=== PATIENT | male | born 1960 | race Caucasian/White ===

== ENCOUNTER → 2017-01-25 | Outpatient (CLI) | payer OTHER ==
--- NOTE | 2017-01-25 13:17 | DIAGNOSTIC IMAGING REPORT ---
BONE SCAN WHOLE BODY CLINICAL HISTORY: C61 Prostate cancer COMPARISON STUDY: Outside CT scan dated 11/13/2016 FINDINGS: The patient was injected with 26.4 mCi of technetium 99m MDP. Three-hour delayed whole body images were acquired. The skeletal uptake appears symmetric and normal. There are no foci of increased activity viewed as suspicious for skeletal metastasis. IMPRESSION: Normal whole-body bone scan Electronically signed by: Timothy Albarran M.D. 01/25/2017 1:16 PM Dictated Date/Time: 01/25/2017 1:15 PM
== END | disposition home or self-care (01) ==
LOC: C.NUCL 09:27
PROVIDERS: ATTEND Urology
DX: C61 Malignant neoplasm of prostate (principal)

== ENCOUNTER 2017-02-23 08:26 | Inpatient (IN) | payer OTHER ==
[2017-02-10 12:40] VITALS: BMI 16.0
--- NOTE | 2017-02-10 13:01 | PAT Medication Instructions ---
Service Date Feb 10, 2017. Current Home Medication List Albuterol Sulfate (Proair Respiclick), 1 PUFF INH QID PRN for Shortness of Breath Fluticasone Prop/Salmeterol (Advair Diskus 250/50 60 Dose), 1 PUFF INH BID Tiotropium [place] (Spiriva Handihaler), 1 CAP INH QAM Medication Instructions For Your Scheduled Surgery - Take the following medications the morning of surgery with a sip of water: Albuterol Sulfate (Proair Respiclick), 1 PUFF INH QID PRN for Shortness of Breath (if needed) Fluticasone Prop/Salmeterol (Advair Diskus 250/50 60 Dose), 1 PUFF INH BID Tiotropium [place] (Spiriva Handihaler), 1 CAP INH QAM - Take the following medications as scheduled the night before surgery: Albuterol Sulfate (Proair Respiclick), 1 PUFF INH QID PRN for Shortness of Breath (if needed) Fluticasone Prop/Salmeterol (Advair Diskus 250/50 60 Dose), 1 PUFF INH BID Tiotropium [place] (Spiriva Handihaler), 1 CAP INH QAM If you have any questions please call us at [phone] or [phone] or [phone]
[2017-02-10 14:09] LABS: BASO % 0.6 %; BASO ABS # 0.04 K/uL (0-0.2); EOS % 1.9 %; EOS ABS # 0.12 K/uL (0-0.5); HEMATOCRIT 42.4 % (42-52); HEMOGLOBIN 15.1 g/dL (14.0-18.0); IG# 0.01 K/uL (0.00-0.02); LYMPH % 12.3 %; LYMPH ABS # 0.78 K/uL (1.2-3.4); MEAN CELL VOLUME 94.2 fL (80-100); MEAN CORPUSCULAR HEMOGLOBIN 33.6 pg (25-34); MEAN CORPUSCULAR HGB CONC 35.6 g/dl (32-36); MEAN PLATELET VOLUME 9.6 fL (7.4-10.4); MONO % 8.1 %; MONO ABS # 0.51 K/uL (0.11-0.59); NEUT % 76.9 %; NEUT ABS # 4.86 K/uL (1.4-6.5); PLATELET COUNT 237 K/uL (130-400); RED CELL DISTRIBUTION WIDTH CV 12.8 % (11.5-14.5); RED CELL DISTRIBUTION WIDTH SD 44.3 fL (36.4-46.3); WHITE BLOOD COUNT 6.32 K/uL (4.8-10.8)
--- NOTE | 2017-02-10 14:15 | DIAGNOSTIC IMAGING REPORT ---
CHEST 2 VIEWS ROUTINE CLINICAL HISTORY: PAT preoperative evaluation COMPARISON STUDY: No previous studies for comparison. FINDINGS: Emphysematous change throughout both hemithoraces. Chronic scarring of the diaphragms bilaterally. No focal infiltrate. No acute process. IMPRESSION: Emphysematous change. No acute process. The above report was generated using voice recognition software. It may contain grammatical, syntax or spelling errors. Electronically signed by: Milton Domingo M.D. 02/10/2017 2:14 PM Dictated Date/Time: 02/10/2017 2:13 PM
[2017-02-10 14:18] LABS: CALCIUM 9.3 mg/dl (8.5-10.1); CREATININE 0.96 mg/dl (0.60-1.40); POTASSIUM 4.3 mmol/L (3.5-5.1)
[~2017-02-23] VITALS: Ht 170.2 cm; Wt 48.4 kg
[2017-02-23] VITALS (7 sets, daily range): BP systolic 107–161; BP diastolic 68–95; PULSE 58–76; TEMP 36.4–37; O2SAT 93–98; Ht 170.2 cm; Wt 48.4 kg
[~2017-02-23 08:26] MED LIST: ADVIN25/60 INH; ALBU18002 INH; CEFAZOLIN 1000MG IV PUSH 5 ML IV SCH; HEPARIN SOD 5000 UNIT/0.5 ML CARP SQ SCH; LACTATED RINGER'S 1000ML 1,000 ML IV SCH; SPRIN/30 INH
[2017-02-23] MEDS ORDERED: PHENYLEPHRINE 100MCG/ML 5ML SYR IV PRN (08:45)
[2017-02-23] MEDS ORDERED: HYDROmorphone INJ 2 MG/ML SYR/VIAL IV PRN (08:45)
[2017-02-23] MEDS ORDERED: EpHEDrine SULFATE INJ 50 MG/ML AMP IV PRN (08:45)
[2017-02-23] MEDS ORDERED: ATROPINE SULFATE 0.1 MG/ML 5ML SYR IV PRN (08:45)
[2017-02-23] MEDS ORDERED: ONDANSETRON INJ 2 MG/ML 2 ML VIAL IV PRN ×2 (08:45→14:15)
[2017-02-23] MEDS ORDERED: PROPOFOL IV EMULSION 10 MG/ML 20 ML VIAL IV ONE (09:34)
[2017-02-23] MEDS ORDERED: ROCURONIUM BROMIDE 10 MG/ML 5 ML VIAL IV ONE (09:34)
[2017-02-23] MEDS ORDERED: DEXAMETHASONE SOD INJ 4 MG/ML VIAL ONE (09:34)
[2017-02-23] MEDS ORDERED: MIDAZOLAM HCL 1 MG/ML 2ML VIAL ONE (09:34)
[2017-02-23] MEDS ORDERED: ONDANSETRON INJ 2 MG/ML 2 ML VIAL ONE (09:34)
[2017-02-23] MEDS ORDERED: LIDOCAINE HCL 2% 2 ML VIAL (20MG/ML) ONE (09:34)
[2017-02-23] MEDS ORDERED: FENTANYL CITRATE INJ 50 MCG/1 ML 2 ML VIAL ONE ×2 (09:35→13:07)
[2017-02-23] MEDS ORDERED: ACETAMINOPHEN 1000 MG/100 ML IV IV ONE (10:20)
[2017-02-23] MEDS ORDERED: PHENYLEPHRINE 100MCG/ML 5ML SYR ONE (10:32)
[2017-02-23] MEDS ORDERED: GLYCOPYRROLATE INJ 0.2 MG/ML VIAL ONE (10:32)
--- NOTE | 2017-02-23 11:05 | History & Physical Bridge Note ---
H&P Re-Evaluation Bridge Note: I have examined the patient, reviewed the History & Physical and in the interval since the performance of the History & Physical I have noted the following changes of clinical significance: No changes noted
[2017-02-23] MEDS ORDERED: CEFAZOLIN SOD 1000MG/5 ML IV PUSH IV ONE (11:13)
[2017-02-23] MEDS ORDERED: METHYLENE BLUE 0.5% 10 ML VIAL ONE (11:14)
[2017-02-23] MEDS ORDERED: BUPIVACAINE 0.5 % 5 MG/1 ML MPF 30ML VIAL ONE (11:14)
[2017-02-23] MEDS ORDERED: NURSING VERBAL MED ORDER ONE ×2 (11:15→17:30)
[2017-02-23] MEDS ORDERED: HEPARIN SOD 5000 UNIT/0.5 ML CARP ONE (11:17)
[2017-02-23] MEDS ORDERED: BELLADONNA/OPIUM SUPP 60 MG SUPP PR ONE (11:53)
[2017-02-23] MEDS ORDERED: EpHEDrine SULFATE 50MG/5ML SYR ONE (12:53)
[2017-02-23] MEDS ORDERED: ALBUTEROL HFA INHALER 8.5 GM INH PRN (14:15)
[2017-02-23] MEDS ORDERED: CEFAZOLIN IV 1,000 MG in DEXTROSE 5% 50ML 50 ML IV SCH (14:15)
[2017-02-23] MEDS ORDERED: HYDROmorphone INJ 1 MG/ML SYR IV PRN (14:15)
[2017-02-23] MEDS ORDERED: NICOTINE 14 MG/24 HR TDSY TD PRN (14:15)
[2017-02-23] MEDS ORDERED: NICOTINE POLACRILEX 2 MG GUM MT PRN (14:15)
[2017-02-23] MEDS ORDERED: OXYBUTYNIN CHLORIDE 5 MG TAB PO PRN (14:15)
[2017-02-23] MEDS ORDERED: KETOROLAC TROMETHAMINE 15 MG/ML VIAL IV PRN (14:15)
[2017-02-23] MEDS ORDERED: ACETAMINOPHEN/CODEINE 300/30MG TAB PO PRN (14:15)
[2017-02-23] MEDS ORDERED: FLOSEAL HEMOSTATIC MATRIX 10ML TOP ONE (14:18)
--- NOTE | 2017-02-23 14:46 | [facility] Operative Report ---
Operative Report Operative Date Feb 23, 2017. Pre-Operative Diagnosis Prostate Cancer Post-Operative Diagnosis Same as preoperative Procedure(s) Performed Robot Assisted Laparoscopic Retropubic Prostatectomy with removal of Pelvic Lymph Nodes. Surgeon Dr. Len Helms Poultryman Surgeon(s) QUINTEN Flores Estimated Blood Loss 25mL Findings Extremely thin patient with minimal to no intra-peritoneal fat Specimens Permanent: A. Periprostatic Fat Fresh: B. Right Pelvic Lymph Node C. Left Pelvic Lymph Node Permanent: D. Prostate and Seminal Vesicles Drains Lubin Anesthesia Gen Complication(s) None Disposition Recovery Room / PACU (stable) Indications Prostate Ca Description of Procedure The patient was identified in the preoperative holding area, appropriate informed consents were reviewed and completed, and he was transported to the operating suite. Subcutaneous heparin was administered in the pre-operative holding area. Upon arrival in the operating suite, he received appropriate antibiotics and general anesthesia. He was positioned in dorsal lithotomy, a B& O suppository was inserted after digital rectal exam, and he was prepped and draped in standard fashion. A Lubin catheter was inserted in the sterile field. A Veress needle was passed per umbilicus with uniform insufflation of the abdomen to 15mmHg. He was placed in steep Trendelenburg position. A periumbilical incision was then made to accommodate a 12mm Visiport with 10mm 0degree laparoscope. Inspection of the abdomen was carried out, and there was no evidence of traumatic entry or injury secondary to the Veress needle. After confirming a clear anterior abdominal wall, ports were subsequently placed in standard robotic prostatectomy fashion without incident. To begin the robotic portion of the case, the left lateral aspect of the sigmoid was mobilized off of the left pelvic side wall to allow the pouch of Howie to be appropriately visualized. The medial umbilical ligaments were then controlled with bipolar electrocautery just inferior to the umbilicus. Following cauterization, they were divided utilizing monopolar cautery. A peritoneal incision was carried from this location to the medial aspect of the internal inguinal rings bilaterally with care to avoid opening through the ring. This incision was concluded when the vas deferens was reached. Dissection of the bladder and prostate off of the posterior aspect of the pubic arch was completed allowing full visualization of the prostate. The fat overlying the prostate was removed en bloc and passed off the table as a specimen labeled "periprostatic fat". The endopelvic fascia was cleared during this portion of the procedure, and subsequently opened - first on the right and then the left. The incision through the endopelvic fascia began near the prostate-bladder junction and was carried to the apex with extreme care to preserve all lateral levator musculature as well as the periurethral musculature and sphincter complex. The puboprostatic ligaments were thinned slightly bilaterally before placing a 0-Vicryl figure of 8 stitch around the DVC. The lymph node dissection was then conducted. External iliac vessles were identified on the pelvic side wall. The packet of fat and lymphatic tissue that resides just under the iliac vein was elevated and off of the vein with a split and roll technique. The packet was dissected laterally to the circumflex vein and distally to the obturator nerve which was preserved. The proximal aspect of the packet was carried towards the bifurcation of the iliac vessels. A combination of monopolar and bipolar cautery were used to assist with control. After completing the dissection on both sides, the packets were collected and passed off of the table as specimens labeled "pelvic lymph nodes". My attention then returned to the prostate, with identification of the bladder neck aided by gentle traction on the Lubin catheter and lateral to medial pressure at the presumed level of the bladder neck with the robotic instruments. An anterior cystotomy was made, the Lubin balloon deflated and the catheter guided through the incision to allow anterior retraction. I attempted to preserve maximal bladder neck musculature as I circumferentially dissected around the bladder neck. After incision through the posterior aspect of the mucosa, the dissection was carried through detrusor muscle until the bilateral ampullae of the vasa were identified. After identifying the vasa, I developed a pedicle packet on each side to help flatten the dissection and placed Weck clips across the most proximal and superficial aspects of these packets adjacent to the bladder. The packets were then divided allowing easier visualization of the vasa and posterior aspect of the prostate. Vasa were each dissected before being transected. These were used to further aide in anterior retraction as the bilateral seminal vesicals were dissected with very judicious use of bipolar electrocautery. Following SV dissection, a posterior plane behind the prostate was developed - splitting Denonvilliers's fascia. This dissection was carried as far as possible towards the apex as well as far as possible laterally. An incision in the lateral prostatic fascia was then made bilaterally to facilitate control of the vascular pedicles. The pedicles were each controlled with a series of Weck clips. The neurovascular bundles were identified with an aggressive nerve sparing on the right, and a cautious nerve sparing on the left. Of note, there was an area in the mid/apical left prostate where the packet was relatively adherent to the side of the prostate and I guided my dissection lateral/wide to this to err on the side of caution in the dissection. The apical attachments of the prostate were remaining at that stage. The DVC was divided with bipolar electrocautery. Teresita-prostatic tissue incised with sharp dissection and monopolar cautery. Maximal urethral length was preserved before dividing the urethra sharply. The prostate was entirely freed at that point, and collected in an EndoCatch bag before being moved out of the field of vision. Hemostasis was confirmed and anastomosis of the bladder and urethra was completed utilizing a double armed V- Lock stitch. A new Lubin catheter was inserted and the anastomosis tested with irrigation. There was no evidence of leak. FloSeal coagulant was placed around the anastomosis. The robot was undocked, the specimen extracted through expansion of the teresita- umbilical camera port. The midline fascia was closed with 0-vicryl in running fashion.. All ports were closed in two layers - with a figure of 8 0-Vicryl to reapproximate the fascia followed by 4-0 Monocryl to close the skin. All wounds were dressed with Dermabond. The case was concluded and the patient taken to the PACU in stable condition. I attest to the content of the Intraoperative Record and any orders documented therein. Any exceptions are noted below.
[2017-02-23 15:02] LABS: HEMATOCRIT 40.8 % (42-52); HEMOGLOBIN 14.3 g/dL (14.0-18.0); MEAN CELL VOLUME 95.6 fL (80-100); MEAN CORPUSCULAR HEMOGLOBIN 33.5 pg (25-34); MEAN PLATELET VOLUME 9.2 fL (7.4-10.4); PLATELET COUNT 176 K/uL (130-400); RED CELL DISTRIBUTION WIDTH CV 13.1 % (11.5-14.5); RED CELL DISTRIBUTION WIDTH SD 45.6 fL (36.4-46.3); WHITE BLOOD COUNT 8.53 K/uL (4.8-10.8)
[2017-02-23 15:32] LABS: CALCIUM 8.8 mg/dl (8.5-10.1); CREATININE 1.11 mg/dl (0.60-1.40); POTASSIUM 4.2 mmol/L (3.5-5.1)
[2017-02-23] MEDS: ACETAMINOPHEN 500 MG TAB PO SCH (18:17)
[2017-02-23] MEDS: CEFAZOLIN IV 1,000 MG in SYRINGE 0 ML IV SCH (18:18)
[2017-02-23] MEDS: LACTATED RINGER'S 1000ML 1,000 ML IV SCH (18:18)
[2017-02-23] MEDS: DOCUSATE SODIUM 100 MG CAP PO SCH (21:00)
[2017-02-23] MEDS: OXYCODONE/ACETAMINOPHEN 5-325 TAB PO PRN (21:09)
[2017-02-23] MEDS: HEPARIN SOD 5000 UNIT/0.5 ML CARP SQ SCH (21:10)
[2017-02-24] MEDS: FLUTICASONE/SALMETEROL 250/50 (ADVAIR) 14 PUFF/1 INHALER INH SCH ×2 (00:08→09:17)
[2017-02-24] MEDS: LACTATED RINGER'S 1000ML 1,000 ML IV SCH ×2 (01:25→09:00)
[2017-02-24] MEDS: CEFAZOLIN IV 1,000 MG in SYRINGE 0 ML IV SCH ×2 (01:25→10:34)
[2017-02-24 03:45] VITALS: BP 110/68; PULSE 70; TEMP 36.9; O2SAT 96
[2017-02-24] MEDS: ACETAMINOPHEN 500 MG TAB PO SCH ×3 (05:34→10:59)
[2017-02-24] MEDS: OXYCODONE/ACETAMINOPHEN 5-325 TAB PO PRN ×3 (05:35→14:46)
[2017-02-24 07:48] VITALS: BP 138/76; PULSE 72; TEMP 36.5; O2SAT 96
--- NOTE | 2017-02-24 08:49 | Progress Note ---
Subjective Date of Service: Feb 24, 2017. Subjective Pt evaluation today including: conversation w/ patient, chart review, lab review Voiding: holm catheter in place (patent, draining light orange/benson colored urine) 56 yo male s/p RALRP. Pt c/o some discomfort of the upper right quadrant under his ribs. Denies n/v. Denies BM or flatus. He has been attempting to ambulate without issue. Labs pending this morning. I&Os acceptable. Review of Systems Constitutional: No fever, No chills Respiratory: No shortness of breath Cardiac: No chest pain Abdomen: + pain (RUQ. ), No nausea, No vomiting Male : + hematuria Heme: No abnormal bleeding/bruising Objective Vital Signs Date Time Temp Pulse Resp B/P (MAP) Pulse Ox O2 Delivery O2 Flow Rate FiO2 02/24/17 07:48 36.5 72 16 138/76 (96) 96 Room Air 02/24/17 03:45 36.9 70 16 110/68 (82) 96 Room Air 02/24/17 00:00 Room Air 02/23/17 23:25 37.0 74 16 107/68 (81) 95 Room Air 02/23/17 19:33 36.4 76 18 133/77 (95) 93 Room Air 02/23/17 18:10 36.7 68 18 135/76 (95) 96 Nasal Cannula 1.0 02/23/17 16:58 36.6 61 16 146/87 (106) 95 Nasal Cannula 2.0 02/23/17 16:20 36.4 63 16 161/89 (113) 98 Nasal Cannula 2.0 02/23/17 16:20 98 Nasal Cannula 2.0 02/23/17 16:20 98 Nasal Cannula 2.0 02/23/17 15:50 36.7 74 16 151/95 (113) 98 Nasal Cannula 2.0 02/23/17 15:30 36.9 63 16 146/88 99 Nasal Cannula 2 02/23/17 15:20 36.9 68 16 145/89 99 Nasal Cannula 2 02/23/17 15:10 66 16 164/93 97 Nasal Cannula 2 02/23/17 15:00 74 16 149/98 100 Oxymask 10 02/23/17 14:50 86 16 133/83 100 Oxymask 10 02/23/17 14:40 36.8 85 16 143/85 100 Oxymask 8 02/23/17 09:14 36.5 58 16 137/84 Room Air Physical Exam General Appearance: no apparent distress, + thin Eyes: normal inspection ENT: hearing grossly normal Neck: no JVD Respiratory/Chest: no respiratory distress, no accessory muscle use Cardiovascular: no JVD Abdomen: + pertinent finding (abdominal incisions c/d/i) Extremities: normal inspection Neurologic/Psychiatric: alert, normal mood/affect, oriented x 3 Skin: normal color Laboratory Results Last 24 Hours Test 02/23/17 14:53 02/23/17 17:00 02/24/17 04:44 White Blood Count 8.53 K/uL Red Blood Count 4.27 M/uL Hemoglobin 14.3 g/dL Hematocrit 40.8 % Mean Corpuscular Volume 95.6 fL Mean Corpuscular Hemoglobin 33.5 pg Mean Corpuscular Hemoglobin Concent 35.0 g/dl RDW Standard Deviation 45.6 fL RDW Coefficient of Variation 13.1 % Platelet Count 176 K/uL Mean Platelet Volume 9.2 fL Sodium Level 140 mmol/L Potassium Level 4.2 mmol/L Chloride Level 106 mmol/L Carbon Dioxide Level 31 mmol/L Anion Gap 3.0 mmol/L Blood Urea Nitrogen 12 mg/dl Creatinine 1.11 mg/dl Est Creatinine Clear Calc Drug Dose 51.5 ml/min Estimated GFR () 86.2 Estimated GFR (Non- 74.4 BUN/Creatinine Ratio 10.8 Random Glucose 138 mg/dl Calcium Level 8.8 mg/dl Prothrombin Time 10.0 SECONDS Prothromb Time International Ratio 1.0 Assessment and Plan POD #1 s/p RALRP. AFVSS. Will advance to a mechanical soft diet for breakfast. Hep lock IVF after breakfast. Encourage use of IS. Encourage ambulation to hallway. Possible d/c home after lunch if labs stable, pain controlled, tolerating PO, and ambulating without difficulty. The pt was seen and assessed with Dr. Helms this morning. Discharge planning: home
[2017-02-24 08:56] LABS: BASO % 0.2 %; BASO ABS # 0.02 K/uL (0-0.2); EOS % 0.2 %; EOS ABS # 0.02 K/uL (0-0.5); HEMATOCRIT 39.9 % (42-52); IG# 0.03 K/uL (0.00-0.02); LYMPH % 14.1 %; LYMPH ABS # 1.24 K/uL (1.2-3.4); MEAN CELL VOLUME 94.5 fL (80-100); MEAN CORPUSCULAR HEMOGLOBIN 33.2 pg (25-34); MEAN CORPUSCULAR HGB CONC 35.1 g/dl (32-36); MEAN PLATELET VOLUME 9.3 fL (7.4-10.4); MONO % 8.9 %; MONO ABS # 0.78 K/uL (0.11-0.59); NEUT % 76.3 %; NEUT ABS # 6.72 K/uL (1.4-6.5); PLATELET COUNT 233 K/uL (130-400); RED CELL DISTRIBUTION WIDTH CV 12.8 % (11.5-14.5); RED CELL DISTRIBUTION WIDTH SD 44.6 fL (36.4-46.3); WHITE BLOOD COUNT 8.81 K/uL (4.8-10.8)
[2017-02-24] MEDS ORDERED: OXYC-57 PO (08:56)
[2017-02-24] MEDS ORDERED: DTR5 PO (08:56)
[2017-02-24] MEDS ORDERED: CIPR1TAB10 PO (08:56)
[2017-02-24] MEDS ORDERED: CLC100 PO (08:56)
[2017-02-24] MEDS ORDERED: TIOTROPIUM BROMIDE 5 PUFF/90 MCG INH INH SCH (09:00)
--- NOTE | 2017-02-24 09:00 | Anesthesiology Progress Note ---
Anesthesia Post Op Note Date & Time Feb 24, 2017 at 09:00 Vital Signs Pain Intensity: 4.0 Vital Signs Past 12 Hours Date Time Temp Pulse Resp B/P (MAP) Pulse Ox O2 Delivery O2 Flow Rate FiO2 02/24/17 07:48 36.5 72 16 138/76 (96) 96 Room Air 02/24/17 03:45 36.9 70 16 110/68 (82) 96 Room Air 02/24/17 00:00 Room Air 02/23/17 23:25 37.0 74 16 107/68 (81) 95 Room Air Notes Mental Status: alert / awake / arousable, participated in evaluation Pt Amnestic to Procedure: Yes Nausea / Vomiting: adequately controlled Pain: adequately controlled Airway Patency, RR, SpO2: stable & adequate BP & HR: stable & adequate Hydration State: stable & adequate Anesthetic Complications: no major complications apparent
--- NOTE | 2017-02-24 09:04 | Discharge Instructions ---
Discharge Instructions Date of Service Feb 24, 2017. Admission Reason for Admission: Prostate Cancer Discharge Discharge Diagnosis / Problem: Prostate Cancer Discharge Goals Goal(s): Decrease discomfort, Improve disease control, Improve nutritional status, Therapeutic intervention Activity Recommendations Activity Limitations: per Instructions/Follow-up section Shower/Bathe: tomorrow . Instructions / Follow-Up Instructions / Follow-Up 1. Do not lift >15lbs x 6 weeks. 2. No heavy exercise x 6 weeks. You may engage in light activity such as walking and stairs as tolerated. 3. No sexual intercourse until cleared by Dr. Helms. 4. Do not drive x [address] while taking narcotics. 5. You have been prescribed the antibiotic Ciprofloxacin. Start this medication 2 days prior to your holm catheter removal. Finish all of the antibiotic you have been prescribed. 6. Immediately call our office at [phone] if your catheter is removed for any reason. 7. Follow-up as scheduled. Please call our office at [phone] if you need to reschedule for any reason. . Current Hospital Diet Patient's current hospital diet: Regular Diet Discharge Diet Recommended Diet: Regular Diet Procedures Procedures Performed: Robot Assisted Laparoscopic Retropubic Prostatectomy with removal of Pelvic Lymph Nodes. Pending Studies Studies pending at discharge: yes (prostate and lymph node pathology) List of pending studies: prostate and lymph node pathology Medical Emergencies . Who to Call and When: Medical Emergencies: If at any time you feel your situation is an emergency, please call 911 immediately. . Non-Emergent Contact Non-Emergency issues call your: Urologist Call Non-Emergent contact if: temperature is above 101.5, your pain is not controlled, your pain is worsening, your pain is unusual for you, your pain is concerning you, wound has increased drainage, wound has increased redness, wound has increased pain, you have any medication questions . . "Provider Documentation" section prepared by Savana Helms. . VTE Core Measure Inpt VTE Proph given/why not?: Unfractionated heparin SQ, SCD's [place] Drug Monitoring Program Search Results: patient reviewed within database, no issues identified
[2017-02-24] MEDS: DOCUSATE SODIUM 100 MG CAP PO SCH (09:18)
[2017-02-24 09:24] LABS: CREATININE 0.95 mg/dl (0.60-1.40); POTASSIUM 3.9 mmol/L (3.5-5.1)
[2017-02-24 09:56] VITALS: O2SAT 95
[2017-02-24] MEDS: HEPARIN SOD 5000 UNIT/0.5 ML CARP SQ SCH (10:36)
[2017-02-24 15:08] VITALS: BP 138/76; PULSE 72; TEMP 36.5; O2SAT 95
== END 2017-02-24 16:37 | disposition home or self-care (01) | DRG 716 ==
LOC: C.ACU 08:26 → C.MSN 11:15 → ENRESERV 15:34
PROVIDERS: ADMIT Urology; ATTEND Urology
PROC: 07BC4ZZ Excision of Pelvis Lymphatic, Percutaneous Endoscopic Approach (ICD-10-PCS; principal; 2017-02-23 10:30)
PROC: 0VB04ZZ Excision of Prostate, Percutaneous Endoscopic Approach (ICD-10-PCS; principal; 2017-02-23 10:30)
DX: C61 Malignant neoplasm of prostate (principal); F17.200 Nicotine dependence, unspecified, uncomplicated; Z80.0 Family history of malignant neoplasm of digestive organs; Z82.49 Family history of ischemic heart disease and other diseases of the circulatory system

== ENCOUNTER → 2017-04-22 | Outpatient (CLI) | payer OTHER ==
[~2017-04-22] MED LIST changes: -CEFAZOLIN 1000MG IV PUSH 5 ML IV SCH; +CIPR1TAB10 PO; +CLC100 PO; +DTR5 PO; -HEPARIN SOD 5000 UNIT/0.5 ML CARP SQ SCH; -LACTATED RINGER'S 1000ML 1,000 ML IV SCH; +OXYC-57 PO
== END | disposition home or self-care (01) ==
LOC: C.LABPBG 10:39
PROVIDERS: ATTEND Urology
DX: C61 Malignant neoplasm of prostate (principal)

== ENCOUNTER → 2017-07-06 | Outpatient (CLI) | payer OTHER | END | disposition home or self-care (01) | LOC: C.LABPBG 11:38 | PROVIDERS: ATTEND Urology | DX: C61 Malignant neoplasm of prostate (principal) ==

== ENCOUNTER 2022-02-04 12:03 | Inpatient (IN) ==
--- NOTE | 2022-02-04 12:23 | XRay Report ---
XR chest 1V portable CLINICAL HISTORY: Dyspnea. COMPARISON STUDY: Chest radiograph February 10, 2017. FINDINGS: No pneumothorax or pleural effusion is present. Lung hyperexpansion is noted with lower shahla g predominant emphysema. Bronchial endovalves project over the right inferior hilum. Cardiac size is normal. Mediastinal contours are normal. There is no evidence for pulmonary edema. There is no consol idation. IMPRESSION: No acute cardiopulmonary findings. Emphysema. ACT 112: Negative or not required by law. Electronically signed by: Bimal Olmstead M.D. 02/04/2022 12:21 PM
[2022-02-04] MEDS ORDERED: LEVALBUTEROL HCL 0.63 MG/3 ML NEB NEB STA (12:30)
[2022-02-04] MEDS ORDERED: methylPREDNISolone 125 MG/2 ML VIAL IV STA (12:30)
[2022-02-04 12:53] LABS: Basophils # (auto) 0.03 K/uL (0-0.2); Basophils % (auto) 0.2 %; Eosinophils % (auto) 0.8 %; Hematocrit (blood only) 46.9 % (40.1-51.0); Hemoglobin 16.5 g/dl (14.0-18.0); Immature Granulocytes # (auto) 0.06 K/uL (0.00-0.02); Immature Granulocytes % (auto) 0.5 %; Lymphocytes # (auto) 0.56 K/uL (1.2-3.4); Lymphocytes % (auto) 4.2 %; Mean Corpuscular Hemoglobin 32.2 pg (25.0-34.0); Mean Corpuscular Hgb Conc 35.2 g/dL (32.0-36.0); Mean Corpuscular Volume 91.4 fL (80.0-100.0); Mean Platelet Volume 8.9 fL (9.4-12.4); Monocytes % (auto) 5.3 %; Neutrophils # (auto) 11.79 K/uL (1.4-6.5); Platelet Count 347 K/uL (130-400); RDW Coefficient of Variation 11.9 % (11.5-14.5); RDW Standard Deviation 40.2 fL (36.4-46.3); Red Blood Count 5.13 M/uL (4.63-6.08); White Blood Count 13.24 K/ul (4.8-10.8)
--- NOTE | 2022-02-04 12:55 | Emergency Department Note ---
Impression & Plan Acute dyspnea, Pneumonitis, Leukocytosis, COPD with acute exacerbation ED Provider Note INFORMANT: Patient ED PROVIDER(S): Luis Alfredo Walter MD CHIEF COMPLAINT: Shortness of breath PLAN: Disposition: Admitted Condition: Good Outpatient prescription management: none Referral: None MEDICAL DECISION MAKING: Patient presented because of shortness of breath. Prior admission history and physical reviewed from the rehab facility. Patient was tachypneic and had increased work of breathing. He was given a Xopenex neb as well as Solu-Medrol after discussion with ED pharmacist. The patient was feeling better on reassessment. Breathing was easier. Patient had findings consistent with COPD on chest x-ray. No pneumonia noted. His ECG did not show any acute ischemia. The patient's CBC showed a leukocytosis and chemistry panel was concerning for a mildly elevated troponin. The patient underwent CT imaging of the chest and there was no obvious thromboembolic disease noted. There was some respiratory motion present. Patient did have findings concerning for pneumonitis. ABG re vealed some mild hypercarbia but no significant hypoxia. The patient underwent treatment with IV vancomycin and cefepime given his recent hospitalizations and rehabilitation. Further management in the hospital will be necessary. [facility] Patient was evaluated in the ER admitted for further management Triage Nursing notes reviewed and agree them. Vital Signs: reviewed and remarkable for tachypnea Differential diagnosis: Reactive airway disease, pneumonia, complication of surgery, pneumothorax, COPD, CHF, infections, cardiac ischemia, pulmonary embolism, musculoskeletal, gastrointestinal, as well as other pathologies. Diagnostics interpreted by me: ECG: Twelve-lead ECG reveals normal sinus rhythm at 90 bpm. Right axis deviation. Inferior and anterior Q waves. No ST elevation. No ST depression. Cardiac Monitoring: Cardiac monitoring ordered by me: The patient was placed on continuous cardiac monitoring and observed. It revealed a normal sinus rhythm at 98 beats per minute without ectopy or evidence of dysrhythmia. Imaging studies: Chest x-ray and CT scan as noted above. I refer you to the EMR for further details. HPI: The patient is a 61year old male who presents to the Emergency Room with complaints of acute dyspnea. This started over the last 4 weeks or so and is persisting. The patient also notes the following associated symptoms, fatigue, generalized weakness. The patient has found no relieving factors. Current pain is rated as 0/10. The patient had a pulmonary valve taken out in [place] on 12/26/21. Patient states since that time he has been having multiple issues with acute dyspnea. 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 He was sent yesterday to [facility] for inpatient treatment as he was felt to be too weak to go home. The patient states that his breathing was persistently bad and that he was transferred from [facility] to the hospital here for further management. Pt denies LOC, headache, fevers, chills, diaphoresis, visual changes, neck pain, chest pain, nausea, vomiting, abdominal pain, back pain, melena, hematochezia, urinary symptoms, numbness, lymphadenopathy, rash, or other complaints. ROS: See above HPI for pertinent positives & negatives. A total of 10 systems reviewed and were otherwise negative. PAST MEDICAL HISTORY:See Below , COPD, A. fib PAST SURGICAL HISTORY:See Below, pulmonary valve replacement FAMILY HISTORY:See Below SOCIAL HISTORY:See Below, disabled HOME MEDICATIONS:See Below ALLERGIES:See Below VITALS:See Below PHYSICAL EXAMINATION: GENERAL: Awake, alert, dyspneic and frail-appearing, in no distress HENT: Normocephalic, atraumatic. Oropharynx unremarkable. EYES: Normal conjunctiva. Sclera non-icteric. NECK: Inspection normal. Non-tender. Supple. No nuchal rigidity. FROM. No masses. RESPIRATORY: Accessory muscle use. Clear to auscultation albeit decreased throughout. No wheezes. No rales. Increased respiratory effort. CARDIAC: Normal rate. Normal rhythm. No murmurs. No rubs. Extremities warm and well perfused. Pulses equal. No JVD. GI: Soft, non-distended. No tenderness to palpation. No rebound or guarding. No masses. RECTAL: Deferred. MUSCULOSKELETAL: Atraumatic generalized muscular atrophy. Chest examination reveals no tenderness. The back is symmetrical on inspection without obvious abnormality. There is no CVA tenderness to palpation. No joint edema. LOWER EXTREMITIES: Calves are equal size bilaterally and non-tender. No edema. No discoloration. NEURO: Normal sensorium. No sensory or motor deficits noted. SKIN: No rash or jaundice noted. Luis Alfredo Walter MD Past Med/Surg History Medical History (Updated 02/04/22 @ 19:18 by Luis Alfredo Walter MD) [id number] deficiency COPD (chronic obstructive pulmonary disease) History of tobacco use Paroxysmal atrial fibrillation Prostate cancer (10/06/16) "Rising PSA, pretreatment PSA 4.510 Status post ultrasound-guided biopsies October 06, 2016 Adenocarcinoma the prostate [place] 3+3, 3+4, and 4+3 Status post robotic assisted laparoscopic radical prostatectomy February 23, 2017 Marg[place] 3+4, perineural invasion, seminal vesicle invasion, positive margins Stage pT3b pN0 Post prostatectomy rising PSA to 0.165 July 06, 2017" Surgical History (Updated 02/04/22 @ 16:52 by Roselyn Jaramillo PA-C) H/O prostatectomy 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 Dr Bennett. [place] Family History (Updated 02/04/22 @ 16:52 by Roselyn Jaramillo PA-C) Other Colorectal cancer Heart disease Social History (Updated 02/04/22 @ 16:52 by Roselyn Jaramillo PA-C) Smoking Status: Former smoker Hx Alcohol Use: Yes (6 beers 3 times a week. Last drink 12/2021) Hx Substance Use: No Allergies Allergies Allergy/AdvReac Type Severity Reaction Status Date / Time albuterol Allergy Unknown Verified 02/04/22 16:45 fluticasone furoate Allergy Unknown Verified 02/04/22 16:45 [From Trelegy Ellipta] meloxicam Allergy Unknown Verified 02/04/22 16:45 umeclidinium Allergy Unknown Verified 02/04/22 16:45 [From Trelegy Ellipta] vilanterol Allergy Unknown Verified 02/04/22 16:45 [From Trelegy Ellipta] Home Meds Home Medications Medication Instructions Recorded Confirmed acetaminophen 325 mg tablet 650 mg PO Q4 PRN Pain 02/04/22 02/04/22 alpha-1 proteinase inhib.(hum) 20 mg IV WK 02/04/22 02/04/22 1,000 mg (+/-)/20 mL IV solution (Prolastin-C) benzonatate 100 mg capsule 100 mg PO TID PRN Cough 02/04/22 02/04/22 clonazepam 0.25 mg disintegrating 0.25 mg PO BID PRN Anxiety 02/04/22 02/04/22 tablet docusate sodium 100 mg capsule 100 mg PO BID 02/04/22 02/04/22 fluticasone fur. 100 mcg-umeclid 1 ea inhalation .HOLD 02/04/22 02/04/22 62.5 mcg-vilant 25 mcg inhalat.powder (Trelegy Ellipta) guaifenesin 100 mg/5 mL oral liquid 100 mg PO QID PRN Cough 02/04/22 02/04/22 levalbuterol tartrate 45 2 puff inhalation Q4 PRN Wheezing 02/04/22 02/04/22 mcg/actuation aerosol inhaler ondansetron 4 mg disintegrating 4 mg PO Q4 PRN nausea or vomiting 02/04/22 02/04/22 tablet polyethylene glycol 3350 17 gram 17 g PO QDL PRN Constipation 02/04/22 02/04/22 oral powder packet (Miralax) prednisone 10 mg tablet 10 mg PO UD 02/04/22 02/04/22 sennosides 8.6 mg tablet (Senokot) 8.6 mg PO QDL PRN Constipation 02/04/22 02/04/22 Results & Data (ED) Vital Signs Vital Signs - 24 hr 02/04/22 12:18 02/04/22 12:23 02/04/22 12:59 Temperature 36.6 C Temperature Source Oral Pulse Rate 98 H Pulse Rate [Apical] Pulse Rate from SpO2 Sensor Pulse Rhythm [Apical] Pulse Strength [Apical] Respiratory Rate 26 H Respiratory Effort / Characteristics Short of Breath Respiratory Depth Respiratory Pattern Tachypnea Blood Pressure 135/104 H Blood Pressure [Right Arm] Blood Pressure Mean 114 Blood Pressure Mean [Right Arm] Blood Pressure Position [Right Arm] Pulse Oximetry 96 96 97 Oxygen Delivery Method Nasal Cannula Nasal Cannula Nasal Cannula Oxygen Flow Rate 2 2 2 Sepsis Recent Fever Within 48 Hours No Sepsis New/Unexplained Change in Mental Status No Sepsis Action Taken by Nursing No Action Required 02/04/22 12:59 02/04/22 12:59 02/04/22 14:04 Temperature Temperature Source Pulse Rate Pulse Rate [Apical] 92 H 97 H Pulse Rate from SpO2 Sensor Pulse Rhythm [Apical] Pulse Strength [Apical] Respiratory Rate 24 24 Respiratory Effort / Characteristics Short of Breath Respiratory Depth Respiratory Pattern Tachypnea Tachypnea Tachypnea Blood Pressure Blood Pressure [Right Arm] 117/87 159/93 H Blood Pressure Mean Blood Pressure Mean [Right Arm] 97 115 Blood Pressure Position [Right Arm] Pulse Oximetry 97 97 Oxygen Delivery Method Nasal Cannula Nasal Cannula Nasal Cannula Oxygen Flow Rate 2 2 2 Sepsis Recent Fever Within 48 Hours Sepsis New/Unexplained Change in Mental Status Sepsis Action Taken by Nursing 02/04/22 12:59 02/04/22 12:59 02/04/22 13:00 Temperature Temperature Source Pulse Rate 92 H 92 H Pulse Rate [Apical] Pulse Rate from SpO2 Sensor 91 H Pulse Rhythm [Apical] Pulse Strength [Apical] Respiratory Rate 27 H 26 H Respiratory Effort / Characteristics Respiratory Depth Respiratory Pattern Blood Pressure 117/87 Blood Pressure [Right Arm] Blood Pressure Mean 97 Blood Pressure Mean [Right Arm] Blood Pressure Position [Right Arm] Pulse Oximetry 97 Oxygen Delivery Method Oxygen Flow Rate Sepsis Recent Fever Within 48 Hours Sepsis New/Unexplained Change in Mental Status Sepsis Action Taken by Nursing 02/04/22 13:27 02/04/22 13:27 02/04/22 13:30 Temperature Temperature Source Pulse Rate 90 Pulse Rate [Apical] Pulse Rate from SpO2 Sensor 88 Pulse Rhythm [Apical] Pulse Strength [Apical] Respiratory Rate 21 Respiratory Effort / Characteristics Respiratory Depth Respiratory Pattern Blood Pressure 150/92 H 140/86 Blood Pressure [Right Arm] Blood Pressure Mean 111 104 Blood Pressure Mean [Right Arm] Blood Pressure Position [Right Arm] Pulse Oximetry 95 Oxygen Delivery Method Oxygen Flow Rate Sepsis Recent Fever Within 48 Hours Sepsis New/Unexplained Change in Mental Status Sepsis Action Taken by Nursing 02/04/22 13:30 02/04/22 14:04 02/04/22 14:04 Temperature Temperature Source Pulse Rate 90 96 H Pulse Rate [Apical] Pulse Rate from SpO2 Sensor 90 101 H Pulse Rhythm [Apical] Pulse Strength [Apical] Respiratory Rate 24 19 Respiratory Effort / Characteristics Respiratory Depth Respiratory Pattern Blood Pressure 159/93 H Blood Pressure [Right Arm] Blood Pressure Mean 115 Blood Pressure Mean [Right Arm] Blood Pressure Position [Right Arm] Pulse Oximetry 97 97 Oxygen Delivery Method Oxygen Flow Rate Sepsis Recent Fever Within 48 Hours Sepsis New/Unexplained Change in Mental Status Sepsis Action Taken by Nursing 02/04/22 14:30 02/04/22 15:00 02/04/22 16:00 Temperature Temperature Source Pulse Rate 95 H Pulse Rate [Apical] 87 95 H Pulse Rate from SpO2 Sensor Pulse Rhythm [Apical] Regular Regular Pulse Strength [Apical] Normal Normal Respiratory Rate 22 24 25 H Respiratory Effort / Characteristics Non-Labored Spontaneous Spontaneous Respiratory Depth Normal Normal Respiratory Pattern Regular Regular Blood Pressure Blood Pressure [Right Arm] 145/90 H 138/83 Blood Pressure Mean Blood Pressure Mean [Right Arm] 108 101 Blood Pressure Position [Right Arm] Lying Sitting Pulse Oximetry 96 96 Oxygen Delivery Method Nasal Cannula Nasal Cannula Oxygen Flow Rate 2 2 Sepsis Recent Fever Within 48 Hours Sepsis New/Unexplained Change in Mental Status Sepsis Action Taken by Nursing Laboratory Data Result diagrams: 02/04/22 12:43 02/04/22 12:43 Lab Results 02/04/22 02/04/22 02/04/22 Range/Units 12:43 12:43 12:43 WBC 13.24 H (4.8-10.8) K/ul RBC 5.13 (4.63-6.08) M/uL Hgb 16.5 (14.0-18.0) g/dl Hct 46.9 (40.1-51.0) % MCV 91.4 (80.0-100.0) fL MCH 32.2 (25.0-34.0) pg MCHC 35.2 (32.0-36.0) g/dL RDW Std Deviation 40.2 (36.4-46.3) fL RDW Coeff of Avila 11.9 (11.5-14.5) % Plt Count 347 (130-400) K/uL MPV 8.9 L (9.4-12.4) fL Immature Gran % (Auto) 0.5 % Neut % (Auto) 89.0 % Lymph % (Auto) 4.2 % Greer % (Auto) 5.3 % Eos % (Auto) 0.8 % Baso % (Auto) 0.2 % Neut # (Auto) 11.79 H (1.4-6.5) K/uL Lymph # (Auto) 0.56 L (1.2-3.4) K/uL Greer # (Auto) 0.70 (0.24-0.82) K/uL Eos # (Auto) 0.10 (0-0.50) K/uL Baso # (Auto) 0.03 (0-0.2) K/uL Immature Gran # (Auto) 0.06 H (0.00-0.02) K/uL ABG pH (7.35-7.45) ABG pCO2 (35-46) mmHg ABG pO2 (80-95) mmHg ABG HCO3 (19-24) mmol/L ABG O2 Saturation (90-95) % ABG Base Excess (-9-1.8) mEq/L Lemuel Test (Pos) Oxygen Given Sodium 143 (136-145) mmol/L Potassium 4.3 (3.5-5.1) mmol/L Chloride 102 (98-107) mmol/L Carbon Dioxide 36 H (21-32) mmol/L Anion Gap 5 (3-11) BUN 27 H (6-23) mg/dl Creatinine 0.84 (0.6-1.4) mg/dl Est Cr Clr Drug Dosing Not Reportable Est GFR ( Amer) 110.3 ml/min Est GFR (Non-Af Amer) 95.2 ml/min BUN/Creatinine Ratio 32.1 H (10-20) Glucose 114 H (70-99(Fasting)) mg/dl Calcium 9.5 (8.5-10.1) mg/dl Total Bilirubin 0.5 (0.2-1.0) mg/dl AST 18 (13-39) U/L ALT 35 (7-52) U/L Alkaline Phosphatase 62 (34-104) U/L Troponin I High Sens 22.3 H (0-20) pg/ml Total Protein 7.2 (6.0-8.3) gm/dl Albumin 4.2 (3.4-5.0) gm/dl Globulin 3.0 (2.5-4.0) gm/dl Albumin/Globulin Ratio 1.4 (0.9-2) Procalcitonin (0-0.5) ng/ml Urine Color Urine Appearance (Clear) Urine pH (4.5-7.5) Ur Specific [place] (1.000-1.030) Urine Protein (Negative) Urine Glucose (UA) (Negative) Urine Ketones (Negative) Urine Blood (Negative) Urine Nitrite (Negative) Urine Bilirubin (Negative) Urine Urobilinogen (Negative) Ur Leukocyte Esterase (Negative) Adenovirus (PCR) Not Detected (NotDetected) B. pertussis DNA (PCR) Not Detected (NotDetected) B.parapertussis DNA PCR Not Detected (NotDetected) C. pneumoniae DNA (PCR) Not Detected (NotDetected) Coronavirus OC43 (PCR) Not Detected (NotDetected) Coronavirus HKU1 (PCR) Not Detected (NotDetected) Coronavirus 229E (PCR) Not Detected (NotDetected) SARS-CoV-2 (PCR) Not Detected (NotDetected) Coronavirus NL63 (PCR) Not Detected (NotDetected) Human Metapneumovir PCR Not Detected (NotDetected) Influenza Type A (PCR) Not Detected (NotDetected) Influenza Type B (PCR) Not Detected (NotDetected) M. pneumoniae (PCR) Not Detected (NotDetected) Parainfluenza 1 (PCR) Not Detected (NotDetected) Parainfluenza 2 (PCR) Not Detected (NotDetected) Parainfluenza 3 (PCR) Not Detected (NotDetected) Parainfluenza 4 (PCR) Not Detected (NotDetected) RSV (PCR) Not Detected (NotDetected) Entero/Rhino (PCR) Not Detected (NotDetected) 02/04/22 02/04/22 02/04/22 Range/Units 12:43 12:50 14:55 WBC (4.8-10.8) K/ul RBC (4.63-6.08) M/uL Hgb (14.0-18.0) g/dl Hct (40.1-51.0) % MCV (80.0-100.0) fL MCH (25.0-34.0) pg MCHC (32.0-36.0) g/dL RDW Std Deviation (36.4-46.3) fL RDW Coeff of Avila (11.5-14.5) % Plt Count (130-400) K/uL MPV (9.4-12.4) fL Immature Gran % (Auto) % Neut % (Auto) % Lymph % (Auto) % Greer % (Auto) % Eos % (Auto) % Baso % (Auto) % Neut # (Auto) (1.4-6.5) K/uL Lymph # (Auto) (1.2-3.4) K/uL Gre[place] # (Auto) (0.24-0.82) K/uL Eos # (Auto) (0-0.50) K/uL Baso # (Auto) (0-0.2) K/uL Immature Gran # (Auto) (0.00-0.02) K/uL ABG pH 7.45 (7.35-7.45) ABG pCO2 50 H (35-46) mmHg ABG pO2 93 (80-95) mmHg ABG HCO3 35 H (19-24) mmol/L ABG O2 Saturation 95.1 H (90-95) % ABG Base Excess 9.2 H (-9-1.8) mEq/L Lemuel Test Pos (Pos) Oxygen Given Sodium (136-145) mmol/L Potassium (3.5-5.1) mmol/L Chloride (98-107) mmol/L Carbon Dioxide (21-32) mmol/L Anion Gap (3-11) BUN (6-23) mg/dl Creatinine (0.6-1.4) mg/dl Est Cr Clr Drug Dosing Est GFR ( Amer) ml/min Est GFR (Non-Af Amer) ml/min BUN/Creatinine Ratio (10-20) Glucose (70-99(Fasting)) mg/dl Calcium (8.5-10.1) mg/dl Total Bilirubin (0.2-1.0) mg/dl AST (13-39) U/L ALT (7-52) U/L Alkaline Phosphatase (34-104) U/L Troponin I High Sens (0-20) pg/ml Total Protein (6.0-8.3) gm/dl Albumin (3.4-5.0) gm/dl Globulin (2.5-4.0) gm/dl Albumin/Globulin Ratio (0.9-2) Procalcitonin < 0.05 (0-0.5) ng/ml Urine Color Yellow Urine Appearance Clear (Clear) Urine pH 5.0 (4.5-7.5) Ur Specific [place] > 1.045 H (1.000-1.030) Urine Protein Negative (Negative) Urine Glucose (UA) Negative (Negative) Urine Ketones 1+ H (Negative) Urine Blood Negative (Negative) Urine Nitrite Negative (Negative) Urine Bilirubin Negative (Negative) Urine Urobilinogen Negative (Negative) Ur Leukocyte Esterase Negative (Negative) Adenovirus (PCR) (NotDetected) B. pertussis DNA (PCR) (NotDetected) B.parapertussis DNA PCR (NotDetected) C. pneumoniae DNA (PCR) (NotDetected) Coronavirus OC43 (PCR) (NotDetected) Coronavirus HKU1 (PCR) (NotDetected) Coronavirus 229E (PCR) (NotDetected) SARS-CoV-2 (PCR) (NotDetected) Coronavirus NL63 (PCR) (NotDetected) Human Metapneumovir PCR (NotDetected) Influenza Type A (PCR) (NotDetected) Influenza Type B (PCR) (NotDetected) M. pneumoniae (PCR) (NotDetected) Parainfluenza 1 (PCR) (NotDetected) Parainfluenza 2 (PCR) (NotDetected) Parainfluenza 3 (PCR) (NotDetected) Parainfluenza 4 (PCR) (NotDetected) RSV (PCR) (NotDetected) Entero/Rhino (PCR) (NotDetected) Administered Medications Discontinued Medications Cefepime HCl (Maxipime) 2,000 mg in 20 mls @ 5 mls/min IV NOW STA; Protocol Stop: 02/04/22 14:46 Last Admin: 02/04/22 16:04 Dose: 5 mls/min Documented By: ADAMS Vancomycin HCl 1,000 mg/ (Sodium Chloride) 520 mls @ 200 mls/hr IV NOW ONE Stop: 02/04/22 17:18 Last Admin: 02/04/22 16:50 Dose: 200 mls/hr Documented By: ADAMS Ioversol (Optiray 320 500ml) 115 ml IV ONCE ONE Stop: 02/04/22 14:03 Last Admin: 02/04/22 14:03 Dose: 115 ml Documented By: TOYA Levalbuterol HCl (Levalbuterol Hcl 0.63 Mg/3 Ml Neb) 0.63 mg NEB NOW STA; Protocol Stop: 02/04/22 12:31 Last Admin: 02/04/22 13:00 Dose: 0.63 mg Documented By: ALIE Methylprednisolone (Methylprednisolone 125 Mg/2 Ml Vial) 60 mg IV NOW STA Stop: 02/04/22 12:31 Last Admin: 02/04/22 13:00 Dose: 60 mg Documented By: ALIE Imaging Data Radiologist's Impression: Chest X-Ray 02/04/22 12:09 XR chest 1V portable CLINICAL HISTORY: Dyspnea. COMPARISON STUDY: Chest radiograph February 10, 2017. FINDINGS: No pneumothorax or pleural effusion is present. Lung hyperexpansion is noted with lower lung predominant emphysema. Bronchial endovalves project over the right inferior hilum. Cardiac size is normal. Mediastinal contours are normal. There is no evidence for pulmonary edema. There is no consolidation. IMPRESSION: No acute cardiopulmonary findings. Emphysema. ACT 112: Negative or not required by law. Electronically signed by: Bimal Olmstead M.D. 02/04/2022 12:21 PM Chest CTA 02/04/22 12:29 CT ANGIOGRAPHY OF THE CHEST, PULMONARY EMBOLUS PROTOCOL CLINICAL HISTORY: SOB, hx of COPD, pulm valve replacement COMPARISON STUDY: Chest radiographs February 10, 2017 and February 04, 2022. TECHNIQUE: Following IV administration of 115 mL of Optiray, helical axial images of the chest were obtained utilizing the pulmonary embolus protocol. Maximal intensity projections and sagittal and coronal reformats were viewed on an independent 3D workstation. IV contrast was administered without com plication. Automated exposure control was utilized for the study. A dose lowering technique was utilized adhering to the principles of ALARA. CT DOSE: 305.42 mGycm FINDINGS: No pulmonary emboli are identified although this exam is mildly compromised by respiratory motion. There is no thoracic aorta dissection. Size of the heart is normal. There is no pericardial effusion. No pneumothorax or pleural effusion is noted. Severe emphysema is noted. This is greater within the lower lobes. There is mild bronchial wall thickening. A few foci of tree-in-bud nodules are present. These are most pronounced within the left upper lobe. There is no consolidation. Note is made of bronchial endovalves within the posterior and medial basal segments of the right lower lobe. There is no cavitation. Bony thorax is unremarkable. Visualized portions of the upper abdomen are unremarkable. A few small pulmonary nodules measure up to 5 mm. A lingular nodule is unchanged since abdominal CT of November 13, 2018. This is benign. IMPRESSION: 1. No pulmonary emboli identified. Exam mildly compromised by respiratory motion. 2. Severe emphysema. 3. A few scattered cluster tree-in-bud nodules which favor an infectious or inf lammatory process. No consolidation. ACT 112: Negative or not required by law. Electronically signed by: Bimal Olmstead M.D. 02/04/2022 2:25 PM Discharge Plan Visit Data Chief Complaint: Shortness of Breath/Dyspnea Stated Complaint: SOB ED Provider: Luis Alfredo Walter Discharge Problem: Acute dyspnea, Pneumonitis, Leukocytosis, COPD with acute exacerbation
[2022-02-04 13:08] LABS: Base Excess ABG 9.2 mEq/L (-9-1.8); HCO3 ABG 35 mmol/L (19-24); Oxygen Saturation ABG 95.1 % (90-95); PCO2 ABG 50 mmHg (35-46); PO2 ABG 93 mmHg (80-95); pH ABG 7.45 (7.35-7.45)
[2022-02-04 13:09] LABS: Allen Test Pos (Pos)
[2022-02-04 13:19] LABS: Anion Gap 5 (3-11); BUN Creatinine Ratio 32.1 (10-20); Blood Urea Nitrogen 27 mg/dl (6-23); Calcium 9.5 mg/dl (8.5-10.1); Carbon Dioxide 36 mmol/L (21-32); Chloride 102 mmol/L (98-107); Est GFR (African American) 110.3 ml/min; Est GFR (Non-African American) 95.2 ml/min; Glucose 114 mg/dl (70-99(Fasting)); Potassium 4.3 mmol/L (3.5-5.1); Sodium 143 mmol/L (136-145); Troponin I High Sensitivity 22.3 pg/ml (0-20)
[2022-02-04 13:27] LABS: Alanine Aminotransferase 35 U/L (7-52); Albumin Globulin Ratio 1.4 (0.9-2); Albumin Level 4.2 gm/dl (3.4-5.0); Alkaline Phosphatase 62 U/L (34-104); Aspartate Aminotransferase 18 U/L (13-39); Bilirubin,Total 0.5 mg/dl (0.2-1.0); Total Protein 7.2 gm/dl (6.0-8.3)
[2022-02-04] MEDS ORDERED: OPTIRAY 320 500ml IV ONE (14:02)
[2022-02-04 14:06] LABS: Adenovirus PCR Not Detected (NotDetected); Bordetella parapertussis PCR Not Detected (NotDetected); Bordetella pertussis PCR Not Detected (NotDetected); Chlamydia pneumoniae PCR Not Detected (NotDetected); Coronavirus 229E PCR Not Detected (NotDetected); Coronavirus CoV-2 (COVID19)PCR Not Detected (NotDetected); Coronavirus HKU1 PCR Not Detected (NotDetected); Coronavirus NL63 PCR Not Detected (NotDetected); Coronavirus OC43PCR Not Detected (NotDetected); Human Metapneumovirus PCR Not Detected (NotDetected); Influenza A PCR Not Detected (NotDetected); Influenza B PCR Not Detected (NotDetected); Mycoplasma pneumoniae PCR Not Detected (NotDetected); Parainfluenza Virus 1 PCR Not Detected (NotDetected); Parainfluenza Virus 2 PCR Not Detected (NotDetected); Parainfluenza Virus 3 PCR Not Detected (NotDetected); Parainfluenza Virus 4 PCR Not Detected (NotDetected); Respiratory Syncytial VirusPCR Not Detected (NotDetected); Rhinovirus/Enterovirus PCR Not Detected (NotDetected)
--- NOTE | 2022-02-04 14:26 | CT Scan Report ---
CT ANGIOGRAPHY OF THE CHEST, PULMONARY EMBOLUS PROTOCOL CLINICAL HISTORY: SOB, hx of COPD, pulm valve replacement COMPARISON STUDY: Chest radiographs February 10, 2017 and February 04, 2022. TECHNIQUE: Following IV administration of 115 mL of Optiray, helical axial images of the chest were o btained utilizing the pulmonary embolus protocol. Maximal intensity projections and sagittal and cor onal reformats were viewed on an independent 3D workstation. IV contrast was administered without co mplication. Automated exposure control was utilized for the study. A dose lowering technique was ut ilized adhering to the principles of ALARA. CT DOSE: 305.42 mGycm FINDINGS: No pulmonary emboli are identified although this exam is mildly compromised by respiratory motion. There is no thoracic aorta dissection. Size of the heart is normal. There is no pericardial effusion. No pneumothorax or pleural effusion is noted. Severe emphysema is noted. This is greater wi thin the lower lobes. There is mild bronchial wall thickening. A few foci of tree-in-bud nodules are present. These are most pronounced within the left upper lobe. There is no consolidation. Note is mad e of bronchial endovalves within the posterior and medial basal segments of the right lower lobe. The re is no cavitation. Bony thorax is unremarkable. Visualized portions of the upper abdomen are unrema rkable. A few small pulmonary nodules measure up to 5 mm. A lingular nodule is unchanged since abdomi nal CT of November 13, 2018. This is benign. IMPRESSION: 1. No pulmonary emboli identified. Exam mildly compromised by respiratory motion. 2. Severe emphysema. 3. A few scattered cluster tree-in-bud nodules which favor an infectious or inflammatory process. No consolidation. ACT 112: Negative or not required by law. Electronically signed by: Bimal Olmstead M.D. 02/04/2022 2:25 PM
[2022-02-04] MEDS ORDERED: CEFEPIME 2,000 MG/20 ML VIAL IV STA (14:43)
[2022-02-04] MEDS ORDERED: VANCOMYCIN HCL 1,000 MG in SODIUM CHLORIDE 0.9% 500 ML IV ONE (14:43)
[2022-02-04] MEDS ORDERED: VANCOMYCIN CONSULT ACTIVE PRN (14:43)
[2022-02-04 15:42] LABS: Appearance Urine Clear (Clear); Bilirubin Urine Negative (Negative); Blood Urine Negative (Negative); Color Urine Yellow; Glucose Urine UA Negative (Negative); Ketones Urine 1+ (Negative); Leukocyte Esterase Urine Negative (Negative); Nitrite Urine Negative (Negative); Protein Urine Negative (Negative); Specific Gravity Urine > 1.045 (1.000-1.030); Urobilinogen Urine Negative (Negative)
--- NOTE | 2022-02-04 16:02 | History & Physical Report ---
Date of Service February 04, 2022 Assessment & Plan (1) COPD with acute exacerbation: Plan: Patient is 61-year-old male with PMH COPD, alpha-1 antitrypsin deficiency, chronic hypoxemic and hypercapnic respiratory failure, on chronic 2-3 oxygen, history of bronchial lung valve replacement in 05/04/2020 and 12/26/[address] Bennett in [place], prostate cancer s/p surgery [facility] with c/o increased SOB. Recurrent episodes of SOB and COPD exacerbation over past month requiring ER and hospitalizations at [facility]. In ER afebrile, 96% on chronic 2 L oxygen via nasal cannula. ABG: pH: 7.4, PCO2: 50, PO2: 93, HCO3: 35 CXR: No acute cardiopulmonary findings. Emphysema. CTA Chest: 1. No pulmonary emboli identified. Exam mildly compromised by respiratory motion. 2. Severe emphysema. 3. A few scattered cluster tree-in-bud nodules which favor an infectious or inflammatory process. No consolidation. In ER given cefepime, vancomycin, Solu-Medrol 60 mg IV, nebulizer treatment Records request made Continue Solu-Medrol and hold his home prednisone taper Xopenex/Atrovent nebs Continue supplemental oxygen Pulmonology consult. Discussed with Dr. Collado. Recommends azithromycin CBC, BMP in a.m. (2) Elevated troponin: Plan: Troponin: 22 EKG: Sinus rhythm, Q waves inferior and anterior leads.. EKG from 2017 without Q waves noted Denies chest pain Trend troponin Obtain echo EKG in a.m. May need to consider cardiology consult (3) Paroxysmal atrial fibrillation: Plan: History episode of atrial fibrillation while hospitalized receiving albuterol nebulizer treatments in 2018. Patient denies any history recurrent atrial fibrillation. Not on anticoagulation or rate control medications Current sinus rhythm (4) Generalized weakness: (5) Body mass index (BMI) less than 16.5: Plan: BMI: 15 Patient reports 10 pound weight loss over the past month, generalized weakness.generalized weakness likely secondary to his recurrent hospitalizations and COPD exacerbations, deconditioning Dietitian consult Boost daily PT/OT eval (6) Prostate cancer: Plan: S/P prostatectomy DVT Prophylaxis Lovenox SQ Full code code as per discussion with pt, however reports if poor prognosis would not want prolonged life support Follows with Dr Maribeth Dyer for routine care Pt was seen and care coordinated with Dr Mercer. See addendum History of Present Illness Chief Complaint: SOB Primary Care Provider: Maribeth Dyer Patient is 61-year-old male with PMH COPD, alpha-1 antitrypsin deficiency, chronic hypoxemic and hypercapnic respiratory failure, on chronic 2-3 oxygen, history of bronchial lung valve replacement in 05/04/2020 and 12/26/[address] Bennett in [place], prostate cancer s/p surgery presented [facility] with complaint of shortness of breath. Patient states since his procedure in December he has had steady decline with recurrent episodes of shortness of breath. Patient reports multiple ER visits and hospitalizations in [place] and [facility] since December. States that he typically is treated with nebulizers, Solu-Medrol and antibiotics. Patient states shortness of breath with any type of exertion, conversation as well as eating. Reports chronic cough productive clear sputum. Denies chest pain, fever/chills. States today at rehab had increased SOB and was referred to ER. Reported that had recent ER visit and was felt that patient would benefit from an patient rehab secondary to his generalized weakness. Patient states has lost 10 pounds since December. Denies fever/chills, diaphoresis, N/V/D/C, MORENO, dizziness, syncope, vision changes, neck pain, palpitations, hemoptysis, sore throat, choking, otalgia, rhinorrhea, abdominal pain, paresthesias, extremity edema, rashes, urinary symptoms. Allergies Allergy/AdvReac Type Severity Reaction Status Date / Time albuterol Allergy Unknown Verified 02/04/22 16:45 fluticasone furoate Allergy Unknown Verified 02/04/22 16:45 [From Trelegy Ellipta] meloxicam Allergy Unknown Verified 02/04/22 16:45 umeclidinium Allergy Unknown Verified 02/04/22 16:45 [From Trelegy Ellipta] vilanterol Allergy Unknown Verified 02/04/22 16:45 [From Trelegy Ellipta] Home Medications Medication Instructions Recorded Confirmed Type acetaminophen 325 mg tablet 650 mg PO Q4 PRN Pain 02/04/22 02/04/22 History alpha-1 proteinase inhib.(hum) 20 mg IV WK 02/04/22 02/04/22 History 1,000 mg (+/-)/20 mL IV solution (Prolastin-C) benzonatate 100 mg capsule 100 mg PO TID PRN Cough 02/04/22 02/04/22 History clonazepam 0.25 mg disintegrating 0.25 mg PO BID PRN Anxiety 02/04/22 02/04/22 History tablet docusate sodium 100 mg capsule 100 mg PO BID 02/04/22 02/04/22 History fluticasone fur. 100 mcg-umeclid 1 ea inhalation .HOLD 02/04/22 02/04/22 History 62.5 mcg-vilant 25 mcg inhalat.powder (Trelegy Ellipta) guaifenesin 100 mg/5 mL oral liquid 100 mg PO QID PRN Cough 02/04/22 02/04/22 History levalbuterol tartrate 45 2 puff inhalation Q4 PRN Wheezing 02/04/22 02/04/22 History mcg/actuation aerosol inhaler ondansetron 4 mg disintegrating 4 mg PO Q4 PRN nausea or vomiting 02/04/22 02/04/22 History tablet polyethylene glycol 3350 17 gram 17 g PO QDL PRN Constipation 02/04/22 02/04/22 History oral powder packet (Miralax) prednisone 10 mg tablet 10 mg PO UD 02/04/22 02/04/22 History sennosides 8.6 mg tablet (Senokot) 8.6 mg PO QDL PRN Constipation 02/04/22 02/04/22 History Past Med/Surg History Medical History (Updated 02/04/22 @ 19:37 by Roselyn Jaramillo PA-C) Loxtz-2-vepuouzcjvj deficiency COPD (chronic obstructive pulmonary disease) History of tobacco use Paroxysmal atrial fibrillation Prostate cancer (10/06/16) "Rising PSA, pretreatment PSA 4.510 Status post ultrasound-guided biopsies October 06, 2016 Adenocarcinoma the prostate [place] 3+3, 3+4, and 4+3 Status post robotic assisted laparoscopic radical prostatectomy February 23, 2017 [place] 3+4, perineural invasion, seminal vesicle invasion, positive margins Stage pT3b pN0 Post prostatectomy rising PSA to 0.165 July 06, 2017" Surgical History (Updated 02/04/22 @ 16:52 by Roselyn Schreckengost, PA-C) H/O prostatectomy 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 Dr Bennett. PH [place] Family History (Updated 02/04/22 @ 16:52 by Roselyn Jaramillo PA-C) Other Colorectal cancer Heart disease Social History (Updated 02/04/22 @ 16:52 by Roselyn Jaramillo PA-C) Smoking Status: Former smoker Smoking End Date: 2017; Second Hand Exposure: No; Tobacco Cessation Education Requested by Patient: No Hx Alcohol Use: Yes Alcohol type: beer Hx Substance Use: No Preferred Language: Georgian Communication Ability: Effective Order Checker Required: No Beliefs That Will Affect Care: None Current Living Situation: Alone Other Information That Helps Us Care for You: No Feels Safe at Home: Yes Safety Concerns: Feels Safe At This Time Assistive Devices: Oxygen - Continuous Review of Systems Review of Systems: All systems reviewed & are unremarkable except as noted in HPI & below Physical Exam Physical Exam: General: no acute respiratory distress on current 2L via NC and sitting upright in bed at rest. Thin elderly male, appears older than stated age Head: normocephalic, atraumatic Eyes: PERRL, EOM's intact, conjunctiva non-injected, anicteric ENT: normal inspection external ears, nose, mucous membranes moist; Bilateral TM's andrea and +clear fluid noted behind TM Neck: supple, trachea midline Lungs: no respiratory distress at rest. +exertional dyspnea, R: 24, +diminished breath sounds throughout, faint wheezing, no rales noted CV: RRR, no murmur, no pretibial edema Abd: normal BS, soft, non-tender Ext: no cyanosis, no calf tenderness Neuro: A&O x 3, no focal deficits noted, normal affect Skin: warm, dry Results & Data Results & Data ([facility]) Vital Signs (Past 12 Hours) Vital Signs Temp Pulse Pulse Resp BP BP Pulse Ox 02/04/22 15:00 87 24 145/90 H 96 02/04/22 14:30 95 H 22 02/04/22 14:04 159/93 H 02/04/22 14:04 96 H 19 97 02/04/22 13:30 90 24 97 02/04/22 13:30 140/86 02/04/22 13:27 150/92 H 02/04/22 13:27 90 21 95 02/04/22 13:00 92 H 26 H 97 02/04/22 12:59 92 H 27 H 02/04/22 12:59 117/87 02/04/22 14:04 97 H 24 159/93 H 97 02/04/22 12:59 02/04/22 12:59 92 H 24 117/87 97 02/04/22 12:59 97 02/04/22 12:23 96 02/04/22 12:18 36.6 C 98 H 26 H 135/104 H 96 O2 Del Method O2 Flow Rate 02/04/22 15:00 Nasal Cannula 2 02/04/22 14:30 02/04/22 14:04 02/04/22 14:04 02/04/22 13:30 02/04/22 13:30 02/04/22 13:27 02/04/22 13:27 02/04/22 13:00 02/04/22 12:59 02/04/22 12:59 02/04/22 14:04 Nasal Cannula 2 02/04/22 12:59 Nasal Cannula 2 02/04/22 12:59 Nasal Cannula 2 02/04/22 12:59 Nasal Cannula 2 02/04/22 12:23 Nasal Cannula 2 02/04/22 12:18 Nasal Cannula 2 Laboratory Results Short CBC 02/04/22 Range/Units 12:43 WBC 13.24 H (4.8-10.8) K/ul Hgb 16.5 (14.0-18.0) g/dl Hct 46.9 (40.1-51.0) % Plt Count 347 (130-400) K/uL BMP 02/04/22 12:43 Sodium 143 Potassium 4.3 Chloride 102 Carbon Dioxide 36 H BUN 27 H Creatinine 0.84 Glucose 114 H Calcium 9.5 Liver Function 02/04/22 Range/Units 12:43 Total Bilirubin 0.5 (0.2-1.0) mg/dl AST 18 (13-39) U/L ALT 35 (7-52) U/L Alkaline Phosphatase 62 (34-104) U/L Albumin 4.2 (3.4-5.0) gm/dl Urine 02/04/22 Range/Units 14:55 Urine Color Yellow Urine Appearance Clear (Clear) Urine pH 5.0 (4.5-7.5) Ur Specific [place] > 1.045 H (1.000-1.030) Urine Protein Negative (Negative) Urine Glucose (UA) Negative (Negative) Diagnostic Findings Chest X-Ray 02/04/22 12:09 XR chest 1V portable CLINICAL HISTORY: Dyspnea. COMPARISON STUDY: Chest radiograph February 10, 2017. FINDINGS: No pneumothorax or pleural effusion is present. Lung hyperexpansion is noted with lower lung predominant emphysema. Bronchial endovalves project over the right inferior hilum. Cardiac size is normal. Mediastinal contours are normal. There is no evidence for pulmonary edema. There is no consolidation. IMPRESSION: No acute cardiopulmonary findings. Emphysema. ACT 112: Negative or not required by law. Electronically signed by: Bimal Olmstead M.D. 02/04/2022 12:21 PM Chest CTA 02/04/22 12:29 CT ANGIOGRAPHY OF THE CHEST, PULMONARY EMBOLUS PROTOCOL CLINICAL HISTORY: SOB, hx of COPD, pulm valve replacement COMPARISON STUDY: Chest radiographs February 10, 2017 and February 04, 2022. TECHNIQUE: Following IV administration of 115 mL of Optiray, helical axial images of the chest were obtained utilizing the pulmonary embolus protocol. Maximal intensity projections and sagittal and coronal reformats were viewed on an independent 3D workstation. IV contrast was administered without complication. Automated exposure control was utilized for the study. A dose lowering technique was utilized adhering to the principles of ALARA. CT DOSE: 305.42 mGycm FINDINGS: No pulmonary emboli are identified although this exam is mildly compromised by respiratory motion. There is no thoracic aorta dissection. Size of the heart is normal. There is no pericardial effusion. No pneumothorax or pleural effusion is noted. Severe emphysema is noted. This is greater within the lower lobes. There is mild bronchial wall thickening. A few foci of tree-in-bud nodules are present. These are most pronounced within the left upper lobe. There is no consolidation. Note is made of bronchial endovalves within the posterior and medial basal segments of the right lower lobe. There is no cavitation. Bony thorax is unremarkable. Visualized portions of the upper abdomen are unremarkable. A few small pulmonary nodules measure up to 5 mm. A lingular nodule is unchanged since abdominal CT of November 13, 2018. This is benign. IMPRESSION: 1. No pulmonary emboli identified. Exam mildly compromised by respiratory motion. 2. Severe emphysema. 3. A few scattered cluster tree-in-bud nodules which favor an infectious or inflammatory process. No consolidation. ACT 112: Negative or not required by law. Electronically signed by: Bimal Olmstead M.D. 02/04/2022 2:25 PM ECG Rate (beats per minute): 90 Rhythm: sinus rhythm Findings: + Q waves (Inferior, anterior) Supervising Physician Co-Signing Physician Notes I have seen and examined the patient and have discussed the case with the provider above. I agree with the assessment and plan as stated with the following exceptions. The patient is a 61 yo M with a h/o COPD and alpha 1 antitrypsin deficiency s/p bronchial valve surgery in 2019. There have been complications and subsequeetn revisions of this including one month ago. He has been on several rounds of antibiotics in recent weeks to clear up an infection in his lungs. He currently is working to breathe with very little effort and has cough. He has suffered weight loss. He was sent here from [facility] for worsening SOB described as a COPD exacerbation. There has been a recurrent pattern of these exacebrations in recent weeks and he has required several rounds of temporary therapies. A lthough he gets better, he declines when the treatment stops. He is on supplemental oxygen. Physical reveals a thin man who has conversational dyspnea. HEENT exam: whitish substance in posterior OP consistent with thrush. Left middle ear effusion, clear TM on right. Lung auscultation reveals poor airflow throughout. Cardiac exam reveals muffled, tachycardic heart sounds and was unable to sort out if there was a murmur or not. Skin is warm and dry. Abdomen is unremarkable. No gross focal neuro muscular deficits with generalized weakness present. Workup reveals a CT chest with no evidence of PE and with significant inflammation surrounding the airways. There is a mild leukocytosis at 13K and ABG reveals chronic respiratory acidosis with a baseline pCO2 around 50. BMP within normal limits except BUN 27 and creat 0.84 reflecting possible dehydration. HS trop was 22-->21, urine appears concentrated. Overall this is a COPD exacerbation with underlying persistent inflammation possible related to structural lung changes given his surgery. Cont with steroids, abx and nebulized bronchodilators as above. Cont supportive care efforts to treat congestion in the ears and will also give nystatin for thrush seen in posterior oropharynx. Otherwise cont management as listed above. Appreciate pulmonary recommendations. DO Ruslan
[2022-02-04] MEDS ORDERED: POLYETHYLENE (MIRALAX) 17 GM PACK PO PRN (19:16)
[2022-02-04] MEDS ORDERED: guaiFENesin SUGAR FREE 100 MG/5 ML UDC PO PRN (19:16)
[2022-02-04] MEDS ORDERED: BENZONATATE 100 MG CAPSULE PO PRN (19:16)
[2022-02-04] MEDS ORDERED: XOPENEX/ATROVENT 1.25mg/0.5MG NEB COMBO NEB SCH (19:16)
[2022-02-04] MEDS ORDERED: NON-FORMULARY MEDICATION (Fluticasone-Umeclidin-Vilanter [Trelegy Ellipta] 100-62.5-25 mcg INH SCH (19:16)
[2022-02-04] MEDS: UMECLIDINIUM/VILANTEROL 62.5/25MCG 7 PUFFS/INHALER INH SCH (20:37)
[2022-02-04] MEDS: FLUTICASONE FUROATE 100MCG 14 PUFFS/INHALER INH SCH (20:37)
[2022-02-04] MEDS: DOCUSATE SODIUM 100 MG CAP PO SCH (20:38)
[2022-02-04] MEDS: AZITHROMYCIN 500 MG in DEXTROSE 5% 250 ML IV SCH (20:39)
[2022-02-04] MEDS: methylPREDNISolone 40 MG in SYRINGE 0 ML IV SCH (20:39)
[2022-02-04] MEDS: NYSTATIN SUSP 500,000 U/5 ML UDC PO SCH ×2 (20:40→20:41)
[2022-02-04] MEDS: ENOXAPARIN INJ 30 MG/0.3 ML SYR SQ SCH (20:40)
[2022-02-04] MEDS: LEVALBUTEROL 1.25MG/0.5ML NEB INH SCH (21:05)
[2022-02-04] MEDS: IPRATROPIUM BROMIDE NEB SOLN 0.02% 2.5 ML VIAL INH SCH (21:05)
[2022-02-04] MEDS ORDERED: PSEUDOEPHEDRINE HCL 30 MG TAB PO PRN (22:25)
[2022-02-05] MEDS: LEVALBUTEROL 1.25MG/0.5ML NEB INH SCH ×4 (02:00→20:24)
[2022-02-05] MEDS: IPRATROPIUM BROMIDE NEB SOLN 0.02% 2.5 ML VIAL INH SCH ×4 (02:00→20:25)
[2022-02-05 06:53] LABS: Hematocrit (blood only) 38.3 % (40.1-51.0); Hemoglobin 13.5 g/dl (14.0-18.0); Mean Corpuscular Hemoglobin 31.8 pg (25.0-34.0); Mean Corpuscular Hgb Conc 35.2 g/dL (32.0-36.0); Mean Corpuscular Volume 90.3 fL (80.0-100.0); Mean Platelet Volume 8.9 fL (9.4-12.4); Platelet Count 280 K/uL (130-400); RDW Coefficient of Variation 11.9 % (11.5-14.5); Red Blood Count 4.24 M/uL (4.63-6.08); White Blood Count 7.89 K/ul (4.8-10.8)
[2022-02-05 07:19] LABS: BUN Creatinine Ratio 36.5 (10-20); Calcium 8.1 mg/dl (8.5-10.1); Creatinine Clr Calc Pharmacy 75.5 ml/min; Est GFR (African American) 124.1 ml/min; Est GFR (Non-African American) 107.1 ml/min; Potassium 4.3 mmol/L (3.5-5.1)
[2022-02-05 07:30] LABS: Immature Granulocytes # (auto) 0.03 K/uL (0.00-0.02); Immature Granulocytes % (auto) 0.4 %; Lymphocytes # (auto) 0.23 K/uL (1.2-3.4); Lymphocytes % (auto) 2.9 %; Monocytes # (auto) 0.23 K/uL (0.24-0.82); Monocytes % (auto) 2.9 %; Neutrophils % (auto) 93.8 %
[2022-02-05] MEDS: UMECLIDINIUM/VILANTEROL 62.5/25MCG 7 PUFFS/INHALER INH SCH (07:39)
[2022-02-05] MEDS: FLUTICASONE FUROATE 100MCG 14 PUFFS/INHALER INH SCH (07:39)
[2022-02-05] MEDS: methylPREDNISolone 40 MG in SYRINGE 0 ML IV SCH ×2 (07:43→21:10)
[2022-02-05] MEDS: FLUTICASONE PROPIONATE NA SPR 16 GM BTL NAE SCH (07:49)
[2022-02-05] MEDS: DOCUSATE SODIUM 100 MG CAP PO SCH ×2 (07:50→21:11)
[2022-02-05] MEDS: NYSTATIN SUSP 500,000 U/5 ML UDC PO SCH ×4 (07:51→21:11)
--- NOTE | 2022-02-05 08:10 | Pulmonary Consultation ---
Date of Consultation February 05, 2022 Assessment & Plan (1) COPD with acute exacerbation: (2) Dtkax-3-ibrqrxlwfxz deficiency: (3) History of tobacco use: (4) Acute dyspnea: (5) Mucus plugging of bronchi: (6) Acute respiratory failure with hypoxia: Plan CT chest 02/04/2022 personally reviewed: Centrilobular emphysema appreciated bilaterally in the upper lobes, panlobular emphysema appreciated bilateral lower lobes Tree-in-bud opacities appreciated bilaterally on the periphery, left lower lobe 5 mm pulmonary nodule Endobronchial valve appreciated likely an RB 6 as well as possibly medial basal No significant mediastinal lymphadenopathy ABG 02/04/2022: 7.45/50/93 --Acute on chronic hypoxic respiratory failure Likely secondary to COPD exacerbation Patient did have 3 endobronchial valve placement in April 2020 as well as removal of 1 valve [address] Bennett, patient has total of 2 valves right now in the right lower lobe COVID-19 PCR, influenza A/B, RSV negative Respiratory bio fire negative Try to keep O2 saturation between 88-92% -- COPD with emphysema, chronic hypoxic respiratory failure Severe On low-dose trilogy at home Will benefit from pulmonary rehab as an outpatient -- History of alpha-1 antitrypsin deficiency On Prolastin C weekly --Left lower lobe pulmonary nodule 5 mm Unchanged 2017 Does not need to be followed up -- Ex-smoker Quit in 2018 Plan: Continue with steroids, inhaled bronchodilators, Anoro Antibiotic I will add hypertonic saline and flutter valve Try to keep oxygen saturation between 88-92% Please note the above document was generated using voice recognition software. It may contain grammatical, syntax or spelling errors.Any formal questions or concerns about the content, text or information contained within the body of this dictation should be directly addressed to the provider for clarification. History of Present Illness Attending Physician: Saúl Briones MD History of Present Illness 61-year-old male presented to the hospital with complaints of worsening shortness of breath Past medical history: Alpha-1 antitrypsin deficiency, chronic hypoxemic and hypercapnic respiratory failure, on 2-3 L oxygen at home, history of endobronchial valve placement April 2020 and December 2021, prostate cancer status postsurgery At the time of examination patient was saturating 97% on 2 L nasal cannula. I went down to 1 L. He says he is feeling better since coming to the hospital. Does complain of cough and difficulty bringing up phlegm. Denies any chest pain. No hemoptysis. No headache or blurry vision No nausea or vomiting No dysuria, no diarrhea. He has been compliant with his inhalers. Patient had 3 endobronchial valves placed back in April 2020, one of them was removed in October 2020 and the reinserted later on. Another wire was removed December 2021 Social history: Quit smoking in 2018, approximately 76-[id number]-[id number] smoking history. Used to work in [employer], exposure to sand as well as dust. Allergies Allergy/AdvReac Type Severity Reaction Status Date / Time albuterol Allergy Unknown Verified 02/04/22 16:45 fluticasone furoate Allergy Unknown Verified 02/04/22 16:45 [From Trelegy Ellipta] meloxicam Allergy Unknown Verified 02/04/22 16:45 umeclidinium Allergy Unknown Verified 02/04/22 16:45 [From Trelegy Ellipta] vilanterol Allergy Unknown Verified 02/04/22 16:45 [From Trelegy Ellipta] Home Medications Medication Instructions Recorded Confirmed Type acetaminophen 325 mg tablet 650 mg PO Q4 PRN Pain 02/04/22 02/04/22 History alpha-1 proteinase inhib.(hum) 20 mg IV WK 02/04/22 02/04/22 History 1,000 mg (+/-)/20 mL IV solution (Prolastin-C) benzonatate 100 mg capsule 100 mg PO TID PRN Cough 02/04/22 02/04/22 History clonazepam 0.25 mg disintegrating 0.25 mg PO BID PRN Anxiety 02/04/22 02/04/22 History tablet docusate sodium 100 mg capsule 100 mg PO BID 02/04/22 02/04/22 History fluticasone fur. 100 mcg-umeclid 1 ea inhalation .HOLD 02/04/22 02/04/22 History 62.5 mcg-vilant 25 mcg inhalat.powder (Trelegy Ellipta) guaifenesin 100 mg/5 mL oral liquid 100 mg PO QID PRN Cough 02/04/22 02/04/22 History levalbuterol tartrate 45 2 puff inhalation Q4 PRN Wheezing 02/04/22 02/04/22 History mcg/actuation aerosol inhaler ondansetron 4 mg disintegrating 4 mg PO Q4 PRN nausea or vomiting 02/04/22 02/04/22 History tablet polyethylene glycol 3350 17 gram 17 g PO QDL PRN Constipation 02/04/22 02/04/22 History oral powder packet (Miralax) prednisone 10 mg tablet 10 mg PO UD 02/04/22 02/04/22 History sennosides 8.6 mg tablet (Senokot) 8.6 mg PO QDL PRN Constipation 02/04/22 02/04/22 History Patient History Medical History (Updated 02/05/22 @ 10:58 by Mehul Collado MD, [facility]) Guney-3-rrjsxerdrca deficiency COPD (chronic obstructive pulmonary disease) History of tobacco use Paroxysmal atrial fibrillation Prostate cancer (10/06/16) "Rising PSA, pretreatment PSA 4.510 Status post ultrasound-guided biopsies October 06, 2016 Adenocarcinoma the prostate [place] 3+3, 3+4, and 4+3 Status post robotic assisted laparoscopic radical prostatectomy February 23, 2017 [place] 3+4, perineural invasion, seminal vesicle invasion, positive margins Stage pT3b pN0 Post prostatectomy rising PSA to 0.165 July 06, 2017" Surgical History (Updated 02/04/22 @ 16:52 by Roselyn Jaramillo PA-C) H/O prostatectomy 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 Dr Bennett. PH [place] Family History (Updated 02/04/22 @ 16:52 by Roselyn Jaramillo PA-C) Other Colorectal cancer Heart disease Social History (Updated 02/04/22 @ 16:52 by Roselyn Jaramillo PA-C) Smoking Status: Former smoker Smoking End Date: 2017; Second Hand Exposure: No; Tobacco Cessation Education Requested by Patient: No Hx Alcohol Use: Yes Alcohol type: beer Hx Substance Use: No Preferred Language: Yemeni Communication Ability: Effective Hearing Aid Repair Technician Required: No Beliefs That Will Affect Care: None Current Living Situation: Alone Other Information That Helps Us Care for You: No Feels Safe at Home: Yes Safety Concerns: Feels Safe At This Time Assistive Devices: Oxygen - Continuous Review of Systems Review of Systems: All systems reviewed & are unremarkable except as noted in HPI & below Physical Exam Physical Exam: Constitutional: No acute distress, frail-appearing HEENT: EOMI, PERRLA Respiratory system: Decreased air entry bilaterally, no wheeze, no rhonchi, mild crackles bilateral lower lobes CVS: S1-S2 positive, no murmurs or gallops Abdomen: Soft, nontender, nondistended, positive bowel sounds x4 Extremities: +2 pulses bilaterally radialis/ dorsalis pedis, no cyanosis, no edema Neuro: Awake alert oriented x3 Psych: Normal mood and affect G/U: No Lubin Skin: no rashes, warm and dry Lymphatic: no cervical or axillary lymphadenopathy Results & Data Results & Data ([facility]) Vital Signs (Past 12 Hours) Vital Signs Temp Pulse Pulse Resp BP BP Pulse Ox 02/05/22 04:00 36.4 C L 64 20 117/70 98 02/04/22 22:11 116 H 02/04/22 23:30 02/04/22 23:30 36.6 C 96 H 22 116/81 96 02/04/22 23:39 36.7 C 104 H 20 121/79 96 02/04/22 20:09 91 H 96 02/04/22 20:48 103 H O2 Del Method O2 Flow Rate 02/05/22 04:00 Nasal Cannula 3 02/04/22 22:11 02/04/22 23:30 Nasal Cannula 3 02/04/22 23:30 Nasal Cannula 3 02/04/22 23:39 Room Air 02/04/22 20:09 Nasal Cannula 3 02/04/22 20:48 Laboratory Results 02/05/22 06:28 02/05/22 06:28 PG Care Time/CCT Total # of Minutes Spent Total Time Spent with Patient: Total time spent is greater than 50% in coordination of care (as documented) at patient's floor/unit and/or counseling patient: Coding Level of Care Code 59456 Initial Inpt Care Lvl 3 Diagnoses COPD with acute exacerbation J44.1 Nfnbu-0-olnvvavytze deficiency E88.01 History of tobacco use Z87.891 Acute dyspnea R06.00 Mucus plugging of bronchi T17.500A Acute respiratory failure with hypoxia J96.01
[2022-02-05] MEDS ORDERED: LACTATED RINGER'S 1,000 ML IV ONE (09:50)
--- NOTE | 2022-02-05 11:43 | Hospitalist Progress Note ---
Date of Service February 05, 2022 Assessment & Plan (1) COPD with acute exacerbation: Plan: In ER afebrile, 96% on chronic 2 L oxygen via nasal cannula. ABG: pH: 7.4, PCO2: 50, PO2: 93, HCO3: 35 CXR: No acute cardiopulmonary findings. Emphysema. CTA Chest: 1. No pulmonary emboli identified. Exam mildly compromised by respiratory motion. 2. Severe emphysema. 3. A few scattered cluster tree-in-bud nodules which favor an infectious or inflammatory process. No consolidation. In ER given cefepime, vancomycin, Solu-Medrol 60 mg IV, nebulizer treatment Records request made Continue Solu-Medro Xopenex/Atrovent nebs Continue supplemental oxygen Pulmonology consult. Discussed with Dr. Collado. - continue azithromycin (2) Paroxysmal atrial fibrillation: Plan: History episode of atrial fibrillation while hospitalized receiving albuterol nebulizer treatments in 2018. Patient denies any history recurrent atrial fibrillation. Not on anticoagulation or rate control medications Current sinus rhythm (3) Body mass index (BMI) less than 16.5: Plan: BMI: 15 Patient reports 10 pound weight loss over the past month, generalized w eakness.generalized weakness likely secondary to his recurrent hospitalizations and COPD exacerbations, deconditioning Dietitian consult Boost daily PT/OT eval (4) Prostate cancer: Plan: S/P prostatectomy Plan DVT ppx: Lovenox SQ Code Status: Full code Dispo: telemetry Follows with Dr Maribeth Dyer for routine care. Saúl Briones MD [facility] Medicine Admission and Anticipated Discharge Date Admission Date: February 04, 2022 Subjective Patient with alpha-1 anti-trypsin deficiency with severe COPD with chronic hypoxemic and hypercapnic respiratory failure on home O2 1-2L NC, h/o bronchial pulmonary valve s/p removal, h/o prostate cancer s/p resection presented with COPD exacerbation. Started on antibiotics with azithromycin and steroids. Pulm consulted. Patient feels somewhat better from breathing standpoint. Denies chest pain, cough improved, denies n/v/d, abdominal pain, dysuria, fever or chills. Review of Systems Review of Systems: All systems reviewed & are unremarkable except as noted in Subjective Physical Exam Physical Exam: General: no acute respiratory distress on current 2L via NC and sitting upright in bed at rest. Thin elderly male, appears older than stated age Head: normocephalic, atraumatic Eyes: PERRL, EOM's intact, conjunctiva non-injected, anicteric ENT: normal inspection external ears, nose, mucous membranes moist; Bilateral TM's andrea and +clear fluid noted behind TM Neck: supple, trachea midline Lungs: no respiratory distress at rest. +exertional dyspnea, R: 24, +diminished breath sounds throughout, no wheezing, no rales noted CV: RRR, no murmur, no pretibial edema Abd: normal BS, soft, non-tender Ext: no cyanosis, no calf tenderness Neuro: A&O x 3, no focal deficits noted, normal affect Skin: warm, dry Results & Data Results & Data ([facility]) Vital Signs (Past 12 Hours) Vital Signs Temp Pulse Pulse Resp BP BP Pulse Ox 02/05/22 11:15 37.1 C 75 18 134/87 97 02/05/22 09:46 02/05/22 09:02 36.4 C L 97 H 18 134/89 95 02/05/22 08:00 58 L 02/05/22 04:00 36.4 C L 64 20 117/70 98 O2 Del Method O2 Flow Rate 02/05/22 11:15 Nasal Cannula 2 02/05/22 09:46 Nasal Cannula 3 02/05/22 09:02 Nasal Cannula 2 02/05/22 08:00 02/05/22 04:00 Nasal Cannula 3 Diagnostic Findings Laboratory Results WBC 7.89 K/ul (4.8-10.8) 02/05/22 06:28 RBC 4.24 M/uL (4.63-6.08) L 02/05/22 06:28 Hgb 13.5 g/dl (14.0-18.0) L D 02/05/22 06:28 Hct 38.3 % (40.1-51.0) L 02/05/22 06:28 MCV 90.3 fL (80.0-100.0) 02/05/22 06:28 MCH 31.8 pg (25.0-34.0) 02/05/22 06:28 MCHC 35.2 g/dL (32.0-36.0) 02/05/22 06:28 RDW Std Deviation 39.0 fL (36.4-46.3) 02/05/22 06:28 RDW Coeff of [place]ila 11.9 % (11.5-14.5) 02/05/22 06:28 Plt Count 280 K/uL (130-400) 02/05/22 06:28 MPV 8.9 fL (9.4-12.4) L 02/05/22 06:28 Immature Gran % (Auto) 0.4 % 02/05/22 06:28 Neut % (Auto) 93.8 % 02/05/22 06:28 Lymph % (Auto) 2.9 % 02/05/22 06:28 [place] % (Auto) 2.9 % 02/05/22 06:28 Eos % (Auto) 0.0 % 02/05/22 06:28 Baso % (Auto) 0.0 % 02/05/22 06:28 Neut # (Auto) 7.40 K/uL (1.4-6.5) H 02/05/22 06:28 Lymph # (Auto) 0.23 K/uL (1.2-3.4) L 02/05/22 06:28 [place] # (Auto) 0.23 K/uL (0.24-0.82) L 02/05/22 06:28 Eos # (Auto) 0.00 K/uL (0-0.50) 02/05/22 06:28 Baso # (Auto) 0.00 K/uL (0-0.2) 02/05/22 06:28 Immature Gran # (Auto) 0.03 K/uL (0.00-0.02) H 02/05/22 06:28 ABG pH 7.45 (7.35-7.45) 02/04/22 12:50 ABG pCO2 50 mmHg (35-46) H 02/04/22 12:50 ABG pO2 93 mmHg (80-95) 02/04/22 12:50 ABG HCO3 35 mmol/L (19-24) H 02/04/22 12:50 ABG O2 Saturation 95.1 % (90-95) H 02/04/22 12:50 ABG Base Excess 9.2 mEq/L (-9-1.8) H 02/04/22 12:50 Lemuel Test Pos (Pos) 02/04/22 12:50 Oxygen Given 02/04/22 12:50 Sodium 142 mmol/L (136-145) 02/05/22 06:28 Potassium 4.3 mmol/L (3.5-5.1) 02/05/22 06:28 Chloride 105 mmol/L (98-107) 02/05/22 06:28 Carbon Dioxide 35 mmol/L (21-32) H 02/05/22 06:28 Anion Gap 2 (3-11) L 02/05/22 06:28 BUN 23 mg/dl (6-23) 02/05/22 06:28 Creatinine 0.63 mg/dl (0.6-1.4) 02/05/22 06:28 Est Cr Clr Drug Dosing 75.5 ml/min 02/05/22 06:28 Est GFR ( Amer) 124.1 ml/min 02/05/22 06:28 Est GFR (Non-Af Amer) 107.1 ml/min 02/05/22 06:28 BUN/Creatinine Ratio 36.5 (10-20) H 02/05/22 06:28 Glucose 109 mg/dl (70-99(Fasting)) H 02/05/22 06:28 Calcium 8.1 mg/dl (8.5-10.1) L 02/05/22 06:28 Magnesium Cancelled 02/04/22 12:43 Total Bilirubin 0.5 mg/dl (0.2-1.0) 02/04/22 12:43 AST 18 U/L (13-39) 02/04/22 12:43 ALT 35 U/L (7-52) 02/04/22 12:43 Alkaline Phosphatase 62 U/L (34-104) 02/04/22 12:43 Troponin I High Sens 14.6 pg/ml (0-20) D 02/05/22 06:28 Total Protein 7.2 gm/dl (6.0-8.3) 02/04/22 12:43 Albumin 4.2 gm/dl (3.4-5.0) 02/04/22 12:43 Globulin 3.0 gm/dl (2.5-4.0) 02/04/22 12:43 Albumin/Globulin Ratio 1.4 (0.9-2) 02/04/22 12:43 Procalcitonin < 0.05 ng/ml (0-0.5) 02/05/22 10:07 Urine Color Yellow 02/04/22 14:55 Urine Appearance Clear (Clear) 02/04/22 14:55 Urine pH 5.0 (4.5-7.5) 02/04/22 14:55 Ur Specific [place] > 1.045 (1.000-1.030) H 02/04/22 14:55 Urine Protein Negative (Negative) 02/04/22 14:55 Urine Glucose (UA) Negative (Negative) 02/04/22 14:55 Urine Ketones 1+ (Negative) H 02/04/22 14:55 Urine Blood Negative (Negative) 02/04/22 14:55 Urine Nitrite Negative (Negative) 02/04/22 14:55 Urine Bilirubin Negative (Negative) 02/04/22 14:55 Urine Urobilinogen Negative (Negative) 02/04/22 14:55 Ur Leukocyte Esterase Negative (Negative) 02/04/22 14:55 Nasal Screen MRSA (PCR) Negative (Negative) 02/04/22 19:52 Adenovirus (PCR) Not Detected (NotDetected) 02/04/22 12:43 B. pertussis DNA (PCR) Not Detected (NotDetected) 02/04/22 12:43 B.parapertussis DNA PCR Not Detected (NotDetected) 02/04/22 12:43 C. pneumoniae DNA (PCR) Not Detected (NotDetected) 02/04/22 12:43 Coronavirus OC43 (PCR) Not Detected (NotDetected) 02/04/22 12:43 Coronavirus HKU1 (PCR) Not Detected (NotDetected) 02/04/22 12:43 Coronavirus 229E (PCR) Not Detected (NotDetected) 02/04/22 12:43 SARS-CoV-2 (PCR) Not Detected (NotDetected) 02/04/22 12:43 Coronavirus NL63 (PCR) Not Detected (NotDetected) 02/04/22 12:43 Human Metapneumovir PCR Not Detected (NotDetected) 02/04/22 12:43 Influenza Type A (PCR) Not Detected (NotDetected) 02/04/22 12:43 Influenza Type B (PCR) Not Detected (NotDetected) 02/04/22 12:43 M. pneumoniae (PCR) Not Detected (NotDetected) 02/04/22 12:43 Parainfluenza 1 (PCR) Not Detected (NotDetected) 02/04/22 12:43 Parainfluenza 2 (PCR) Not Detected (NotDetected) 02/04/22 12:43 Parainfluenza 3 (PCR) Not Detected (NotDetected) 02/04/22 12:43 Parainfluenza 4 (PCR) Not Detected (NotDetected) 02/04/22 12:43 RSV (PCR) Not Detected (NotDetected) 02/04/22 12:43 Entero/Rhino (PCR) Not Detected (NotDetected) 02/04/22 12:43 Impressions Chest X-Ray 02/04/22 12:09 XR chest 1V portable CLINICAL HISTORY: Dyspnea. COMPARISON STUDY: Chest radiograph February 10, 2017. FINDINGS: No pneumothorax or pleural effusion is present. Lung hyperexpansion is noted with lower lung predominant emphysema. Bronchial endovalves project over the right inferior hilum. Cardiac size is normal. Mediastinal contours are normal. There is no evidence for pulmonary edema. There is no consolidation. IMPRESSION: No acute cardiopulmonary findings. Emphysema. ACT 112: Negative or not required by law. Electronically signed by: Bimla Olmstead M.D. 02/04/2022 12:21 PM Chest CTA 02/04/22 12:29 CT ANGIOGRAPHY OF THE CHEST, PULMONARY EMBOLUS PROTOCOL CLINICAL HISTORY: SOB, hx of COPD, pulm valve replacement COMPARISON STUDY: Chest radiographs February 10, 2017 and February 04, 2022. TECHNIQUE: Following IV administration of 115 mL of Optiray, helical axial images of the chest were obtained utilizing the pulmonary embolus protocol. Maximal intensity projections and sagittal and coronal reformats were viewed on an independent 3D workstation. IV contrast was administered without complication. Automated exposure control was utilized for the study. A dose lowering technique was utilized adhering to the principles of ALARA. CT DOSE: 305.42 mGycm FINDINGS: No pulmonary emboli are identified although this exam is mildly compromised by respiratory motion. There is no thoracic aorta dissection. Size of the heart is normal. There is no pericardial effusion. No pneumothorax or pleural effusion is noted. Severe emphysema is noted. This is greater within the lower lobes. There is mild bronchial wall thickening. A few foci of tree-in-bud nodules are present. These are most pronounced within the left upper lobe. There is no consolidation. Note is made of bronchial endovalves within the posterior and medial basal segments of the right lower lobe. There is no cavitation. Bony thorax is unremarkable. Visualized portions of the upper abdomen are unremarkable. A few small pulmonary nodules measure up to 5 mm. A lingular nodule is unchanged since abdominal CT of November 13, 2018. This is benign. IMPRESSION: 1. No pulmonary emboli identified. Exam mildly compromised by respiratory motion. 2. Severe emphysema. 3. A few scattered cluster tree-in-bud nodules which favor an infectious or inflammatory process. No consolidation. ACT 112: Negative or not required by law. Electronically signed by: Bimal Olmstead M.D. 02/04/2022 2:25 PM Medications Administered Current Inpatient Medications Acetaminophen (Acetaminophen 325 Mg Tab) 650 mg PO Q4H PRN PRN Reason: Pain or Fever Stop: 03/06/22 19:15 Benzonatate (Benzonatate 100 Mg Capsule) 100 mg PO TID PRN PRN Reason: Cough Stop: 03/06/22 19:15 Clonazepam (Clonazepam 0.25 Mg Tab) 0.25 mg PO BID PRN PRN Reason: Anxiety Stop: 03/06/22 19:29 Docusate Sodium (Docusate Sodium 100 Mg Cap) 100 mg PO BID [facility] Stop: 03/06/22 20:59 Last Admin: 02/05/22 07:50 Dose: 100 mg Enoxaparin Sodium (Enoxaparin Inj 30 Mg/0.3 Ml Syr) 30 mg SQ Q24H [facility] Stop: 03/06/22 20:59 Last Admin: 02/04/22 20:40 Dose: Not Given Fluticasone Furoate (Fluticasone Furoate 100mcg 14 Puffs/Inhaler) 1 puffs INH DAILY [facility] Stop: 03/06/22 19:59 Last Admin: 02/05/22 07:39 Dose: 1 puffs Fluticasone Propionate (Fluticasone Propionate Na Spr 16 Gm Btl) 2 sprays MURALI DAILY [facility] Stop: 03/07/22 08:59 Last Admin: 02/05/22 07:49 Dose: 2 sprays Guaifenesin (Guaifenesin Sugar Free 100 Mg/5 Ml Udc) 100 mg PO QID PRN PRN Reason: Cough Stop: 03/06/22 19:15 Azithromycin 500 mg/ Dextrose 255 mls @ 127.5 mls/hr IV Q24H LONNIE Stop: 02/09/22 19:59 Last Infusion: 02/04/22 23:00 Dose: Infused Methylprednisolone 40 mg/ (Syringe) 0.64 mls @ 1.5 mls/min IV BID [facility] Stop: 03/06/22 20:59 Last Admin: 02/05/22 07:43 Dose: 1.5 mls/min Lactated Ringer's (Lr) 1,000 mls @ 250 mls/hr IV .Q4H ONE Stop: 02/05/22 13:49 Last Admin: 02/05/22 10:12 Dose: 250 mls/hr Ipratropium Eden (Ipratropium [place] Neb Soln 0.02% 2.5 Ml Vial) 0.5 mg INH Q6R [facility] Stop: 03/06/22 19:29 Last Admin: 02/05/22 07:51 Dose: Not Given Levalbuterol HCl (Levalbuterol 1.25mg/0.5ml Neb) 1.25 mg INH Q6R [facility] Stop: 03/06/22 19:29 Last Admin: 02/05/22 07:51 Dose: Not Given Nystatin (Nystatin Susp 500,000 U/5 Ml Udc) 5 ml PO QID [facility] Stop: 02/14/22 16:59 Last Admin: 02/05/22 07:51 Dose: 5 ml Polyethylene Glycol (Polyethylene (Miralax) 17 Gm Pack) 17 gm PO DAILY PRN PRN Reason: Constipation Stop: 03/06/22 19:15 Pseudoephedrine HCl (Pseudoephedrine Hcl 30 Mg Tab) 30 mg PO Q6H PRN PRN Reason: congestion/ear fullness Stop: 03/06/22 22:24 Sodium Chloride (Sodium Chlor 7% 4 Ml Neb) 4 ml NEB BIDR [facility] Stop: 03/07/22 18:59 Umeclidinium/Vilanterol (Umeclidinium/Vilanterol 62.5/25mcg 7 Puffs/Inhaler) 1 puffs INH DAILY [facility] Stop: 03/06/22 19:59 Last Admin: 02/05/22 07:39 Dose: 1 puffs
[2022-02-05] MEDS: SODIUM CHLOR 7% 4 ML NEB NEB SCH (20:25)
[2022-02-05] MEDS: ENOXAPARIN INJ 30 MG/0.3 ML SYR SQ SCH (21:11)
[2022-02-05] MEDS: clonazePAM 0.25 MG TAB PO PRN (21:33)
[2022-02-05] MEDS: AZITHROMYCIN 500 MG in DEXTROSE 5% 250 ML IV SCH (21:33)
[2022-02-06] MEDS: IPRATROPIUM BROMIDE NEB SOLN 0.02% 2.5 ML VIAL INH SCH ×4 (01:45→20:18)
[2022-02-06] MEDS: LEVALBUTEROL 1.25MG/0.5ML NEB INH SCH ×4 (01:45→20:18)
--- NOTE | 2022-02-06 05:58 | Electrocardiogram Report ---
Test Reason : Blood Pressure : / mmHG Vent. Rate : 090 BPM Atrial Rate : 090 BPM P-R Int : 128 ms QRS Dur : 058 ms QT Int : 332 ms P-R-T Axes : 081 260 082 degrees QTc Int : 406 ms Poor data quality, interpretation may be adversely affected Normal sinus rhythm Right superior axis deviation Inferior infarct , age undetermined Cannot rule out Anterior infarct , age undetermined Abnormal ECG When compared with ECG of 10-FEB-2017 13:26, Vent. rate has increased BY 31 BPM Questionable change in QRS duration Minimal criteria for Anterior infarct are now Present Inferior infarct is now Present Confirmed by Ishan Thrasher ([id number]) on 02/06/2022 5:58:26 AM Referred By: Confirmed By:Ishan Thrasher
[2022-02-06] MEDS: SODIUM CHLOR 7% 4 ML NEB NEB SCH ×2 (07:46→20:30)
[2022-02-06] MEDS: NYSTATIN SUSP 500,000 U/5 ML UDC PO SCH ×4 (09:02→20:12)
[2022-02-06] MEDS: DOCUSATE SODIUM 100 MG CAP PO SCH ×2 (09:02→20:13)
[2022-02-06] MEDS: FLUTICASONE PROPIONATE NA SPR 16 GM BTL NAE SCH (09:03)
[2022-02-06] MEDS: FLUTICASONE FUROATE 100MCG 14 PUFFS/INHALER INH SCH (09:04)
[2022-02-06] MEDS: UMECLIDINIUM/VILANTEROL 62.5/25MCG 7 PUFFS/INHALER INH SCH (09:04)
--- NOTE | 2022-02-06 09:11 | Pulmonology Progress Note ---
Date of Service February 06, 2022 Assessment & Plan (1) COPD with acute exacerbation: (2) [id number] deficiency: (3) History of tobacco use: (4) Acute dyspnea: (5) Mucus plugging of bronchi: (6) Acute respiratory failure with hypoxia: Plan CT chest 02/04/2022 personally reviewed: Centrilobular emphysema appreciated bilaterally in the upper lobes, panlobular emphysema appreciated bilateral lower lobes Tree-in-bud opacities appreciated bilaterally on the periphery, left lower lobe 5 mm pulmonary nodule Endobronchial valve appreciated likely an RB 6 as well as possibly medial basal No significant mediastinal lymphadenopathy ABG 02/04/2022: 7.45/50/93 --Acute on chronic hypoxic respiratory failure Likely secondary to COPD exacerbation Patient did have 3 endobronchial valve placement in April 2020 as well as removal of 1 valve [address] Bennett, patient has total of 2 valves right now in the right lower lobe COVID-19 PCR, influenza A/B, RSV negative Respiratory bio fire negative Try to keep O2 saturation between 88-92% -- COPD with emphysema, chronic hypoxic respiratory failure Severe On low-dose trilogy at home Will benefit from pulmonary rehab as an outpatient -- History of alpha-1 antitrypsin deficiency On Prolastin C weekly --Left lower lobe pulmonary nodule 5 mm Unchanged 2017 Does not need to be followed up -- Ex-smoker Quit in 2018 Plan: Can transition to p.o. prednisone tomorrow 40 mg for 3 days followed by 20 mg for 3 days Continue with inhaled bronchodilators, Anoro Continue with hypertonic saline and flutter valve Complete the course of antibiotic for total of 5 days Try to keep oxygen saturation between 88-92% Case was discussed with RN. Patient did not get his Prolastin C dose on Wednesday. Okay to give it today Please note the above document was generated using voice recognition software. It may contain grammatical, syntax or spelling errors.Any formal questions or concerns about the content, text or information contained within the body of this dictation should be directly addressed to the provider for clarification. Admission and Anticipated Discharge Date Admission Date: February 04, 2022 Subjective Patient seen and examined at bedside. No acute distress, no adverse events overnight Patient was saturating 98% on 2 L, he went down to half liters. He says he is feeling better compared to when he came to the hospital Is coughing and bringing up phlegm. Still feels little bit No fever chills No nausea vomiting No headache, no blurry vision Review of Systems Review of Systems: All systems reviewed & are unremarkable except as noted in Subjective Physical Exam Physical Exam: Constitutional: No acute distress, frail-appearing HEENT: EOMI, PERRLA Respiratory system: Decreased air entry bilaterally, no wheeze, no rhonchi, mild crackles bilateral lower lobes CVS: S1-S2 positive, no murmurs or gallops Abdomen: Soft, nontender, nondistended, positive bowel sounds x4 Extremities: +2 pulses bilaterally radialis/ dorsalis pedis, no cyanosis, no edema Neuro: Awake alert oriented x3 Psych: Normal mood and affect G/U: No Lubin Skin: no rashes, warm and dry Lymphatic: no cervical or axillary lymphadenopathy Results & Data Results & Data ([facility]) Vital Signs (Past 12 Hours) Vital Signs Temp Pulse Pulse Resp BP BP Pulse Ox 02/06/22 08:00 36.7 C 73 18 134/85 98 02/06/22 03:06 36.7 C 62 16 121/72 97 02/05/22 22:10 79 02/05/22 23:00 36.7 C 68 18 119/69 98 O2 Del Method O2 Flow Rate 02/06/22 08:00 Nasal Cannula 2 02/06/22 03:06 Nasal Cannula 3 02/05/22 22:10 02/05/22 23:00 Nasal Cannula 2 Laboratory Results 02/05/22 06:28 02/05/22 06:28 PG Care Time/CCT Total # of Minutes Spent Total Time Spent with Patient: Total time spent is greater than 50% in coordination of care (as documented) at patient's floor/unit and/or counseling patient: Coding Level of Care Code 96376 Subseq Hosp Care Lvl 2 Diagnoses COPD with acute exacerbation J44.1 [id number] deficiency E88.01 History of tobacco use Z87.891 Acute dyspnea R06.00 Mucus plugging of bronchi T17.500A Acute respiratory failure with hypoxia J96.01
[2022-02-06] MEDS: clonazePAM 0.25 MG TAB PO PRN ×2 (09:14→22:20)
[2022-02-06 09:54] LABS: Hematocrit (blood only) 43.7 % (40.1-51.0); Hemoglobin 14.9 g/dl (14.0-18.0); Mean Corpuscular Hemoglobin 31.7 pg (25.0-34.0); Mean Corpuscular Hgb Conc 34.1 g/dL (32.0-36.0); Mean Platelet Volume 9.3 fL (9.4-12.4); Platelet Count 339 K/uL (130-400); RDW Coefficient of Variation 11.9 % (11.5-14.5); RDW Standard Deviation 41.1 fL (36.4-46.3); White Blood Count 10.39 K/ul (4.8-10.8)
[2022-02-06 10:04] LABS: Prothrombin Time 10.4 Seconds (9.0-12.0)
[2022-02-06 10:19] LABS: Albumin Globulin Ratio 1.7 (0.9-2); Albumin Level 3.9 gm/dl (3.4-5.0); BUN Creatinine Ratio 31.9 (10-20); Bilirubin,Total 0.6 mg/dl (0.2-1.0); Calcium 8.6 mg/dl (8.5-10.1); Creatinine Clr Calc Pharmacy 66.8 ml/min; Est GFR (African American) 117.5 ml/min; Est GFR (Non-African American) 101.4 ml/min; Globulin 2.3 gm/dl (2.5-4.0); Magnesium 2.2 mg/dl (1.7-2.4); Phosphorus 3.2 mg/dl (2.5-4.9); Potassium 3.6 mmol/L (3.5-5.1); Total Protein 6.2 gm/dl (6.0-8.3)
[2022-02-06] MEDS: methylPREDNISolone 40 MG in SYRINGE 0 ML IV SCH ×2 (10:44→20:11)
--- NOTE | 2022-02-06 13:52 | Hospitalist Progress Note ---
Date of Service February 06, 2022 Assessment & Plan (1) COPD with acute exacerbation: Plan: In ER afebrile, 96% on chronic 2 L oxygen via nasal cannula. ABG: pH: 7.4, PCO2: 50, PO2: 93, HCO3: 35 CXR: No acute cardiopulmonary findings. Emphysema. CTA Chest: 1. No pulmonary emboli identified. Exam mildly compromised by respiratory motion. 2. Severe emphysema. 3. A few scattered cluster tree-in-bud nodules which favor an infectious or inflammatory process. No consolidation. In ER given cefepime, vancomycin, Solu-Medrol 60 mg IV, nebulizer treatment Records request made Continue Solu-Medro Xopenex/Atrovent nebs Continue supplemental oxygen Pulmonology consult. Discussed with Dr. Collado. - continue azithromycin x5 days total - change to prednisone 40mg x3 days, then 20mg x3 days starting tomorrow 02/07/2022 per pulm (2) Paroxysmal atrial fibrillation: Plan: History episode of atrial fibrillation while hospitalized receiving albuterol nebulizer treatments in 2018. Patient denies any history recurrent atrial fibrillation. Not on anticoagulation or rate control medications Current sinus rhythm (3) Body mass index (BMI) less than 16.5: Plan: BMI: 15 Patient reports 10 pound weight loss over the past month, generalized weakness.generalized weakness likely secondary to his recurrent hospitalizations and COPD exacerbations, deconditioning Dietitian consult Boost daily PT/OT eval (4) Prostate cancer: Plan: S/P prostatectomy Plan DVT ppx: Lovenox SQ Code Status: Full code Dispo: telemetry Follows with Dr Maribeth Dyer for routine care. Saúl Briones MD [facility] Medicine Admission and Anticipated Discharge Date Admission Date: February 04, 2022 Subjective Patient with alpha-1 anti-trypsin deficiency with severe COPD with chronic hypoxemic and hypercapnic respiratory failure on home O2 1-2L NC, h/o bronchial pulmonary valve s/p removal, h/o prostate cancer s/p resection presented with COPD exacerbation. Started on antibiotics with azithromycin and steroids. Pulm consulted. Patient feels no better than yesterday breathing, had improvement this morning but later in the day got bad again. Denies chest pain, cough improved, denies n/v/d, abdominal pain, dysuria, fever or chills. Review of Systems Review of Systems: All systems reviewed & are unremarkable except as noted in Subjective Physical Exam Physical Exam: General: no acute respiratory distress on current 2L via NC and sitting upright in bed at rest. Thin elderly male, appears older than stated age Head: normocephalic, atraumatic Eyes: PERRL, EOM's intact, conjunctiva non-injected, anicteric ENT: normal inspection external ears, nose, mucous membranes moist Neck: supple, trachea midline Lungs: no respiratory distress at rest. +conversational dyspnea, +diminished breath sounds throughout, no wheezing, no rales noted CV: RRR, no murmur, no pretibial edema Abd: normal BS, soft, non-tender Ext: no cyanosis, no calf tenderness Neuro: A&O x 3, no focal deficits noted, normal affect Skin: warm, dry Results & Data Results & Data ([facility]) Vital Signs (Past 12 Hours) Vital Signs Temp Pulse Pulse Resp BP Pulse Ox O2 Del Method 02/06/22 12:06 36.8 C 72 18 142/77 H 95 Nasal Cannula 02/06/22 09:00 Nasal Cannula 02/06/22 07:30 58 L 02/06/22 08:00 36.7 C 73 18 134/85 98 Nasal Cannula 02/06/22 03:06 36.7 C 62 16 121/72 97 Nasal Cannula O2 Flow Rate 02/06/22 12:06 1 02/06/22 09:00 1 02/06/22 07:30 02/06/22 08:00 2 02/06/22 03:06 3 Diagnostic Findings Laboratory Results WBC 10.39 K/ul (4.8-10.8) 02/06/22 09:09 RBC 4.70 M/uL (4.63-6.08) 02/06/22 09:09 Hgb 14.9 g/dl (14.0-18.0) 02/06/22 09:09 Hct 43.7 % (40.1-51.0) 02/06/22 09:09 MCV 93.0 fL (80.0-100.0) 02/06/22 09:09 MCH 31.7 pg (25.0-34.0) 02/06/22 09:09 MCHC 34.1 g/dL (32.0-36.0) 02/06/22 09:09 RDW Std Deviation 41.1 fL (36.4-46.3) 02/06/22 09:09 RDW Coeff of Avila 11.9 % (11.5-14.5) 02/06/22 09:09 Plt Count 339 K/uL (130-400) 02/06/22 09:09 MPV 9.3 fL (9.4-12.4) L 02/06/22 09:09 Immature Gran % (Auto) 0.4 % 02/05/22 06:28 Neut % (Auto) 93.8 % 02/05/22 06:28 Lymph % (Auto) 2.9 % 02/05/22 06:28 [place] % (Auto) 2.9 % 02/05/22 06:28 Eos % (Auto) 0.0 % 02/05/22 06:28 Baso % (Auto) 0.0 % 02/05/22 06:28 Neut # (Auto) 7.40 K/uL (1.4-6.5) H 02/05/22 06:28 Lymph # (Auto) 0.23 K/uL (1.2-3.4) L 02/05/22 06:28 [place] # (Auto) 0.23 K/uL (0.24-0.82) L 02/05/22 06:28 Eos # (Auto) 0.00 K/uL (0-0.50) 02/05/22 06:28 Baso # (Auto) 0.00 K/uL (0-0.2) 02/05/22 06:28 Immature Gran # (Auto) 0.03 K/uL (0.00-0.02) H 02/05/22 06:28 PT 10.4 Seconds (9.0-12.0) 02/06/22 09:09 INR 1.0 (0.9-1.1) 02/06/22 09:09 ABG pH 7.45 (7.35-7.45) 02/04/22 12:50 ABG pCO2 50 mmHg (35-46) H 02/04/22 12:50 ABG pO2 93 mmHg (80-95) 02/04/22 12:50 ABG HCO3 35 mmol/L (19-24) H 02/04/22 12:50 ABG O2 Saturation 95.1 % (90-95) H 02/04/22 12:50 ABG Base Excess 9.2 mEq/L (-9-1.8) H 02/04/22 12:50 Lemuel Test Pos (Pos) 02/04/22 12:50 Oxygen Given 02/04/22 12:50 Sodium 141 mmol/L (136-145) 02/06/22 09:09 Potassium 3.6 mmol/L (3.5-5.1) 02/06/22 09:09 Chloride 101 mmol/L (98-107) 02/06/22 09:09 Carbon Dioxide 35 mmol/L (21-32) H 02/06/22 09:09 Anion Gap 5 (3-11) 02/06/22 09:09 BUN 23 mg/dl (6-23) 02/06/22 09:09 Creatinine 0.72 mg/dl (0.6-1.4) 02/06/22 09:09 Est Cr Clr Drug Dosing 66.8 ml/min 02/06/22 09:09 Est GFR ( Amer) 117.5 ml/min 02/06/22 09:09 Est GFR (Non-Af Amer) 101.4 ml/min 02/06/22 09:09 BUN/Creatinine Ratio 31.9 (10-20) H 02/06/22 09:09 Glucose 156 mg/dl (70-99(Fasting)) H 02/06/22 09:09 Calcium 8.6 mg/dl (8.5-10.1) 02/06/22 09:09 Phosphorus 3.2 mg/dl (2.5-4.9) 02/06/22 09:09 Magnesium 2.2 mg/dl (1.7-2.4) 02/06/22 09:09 Total Bilirubin 0.6 mg/dl (0.2-1.0) 02/06/22 09:09 AST 16 U/L (13-39) 02/06/22 09:09 ALT 35 U/L (7-52) 02/06/22 09:09 Alkaline Phosphatase 53 U/L (34-104) 02/06/22 09:09 Troponin I High Sens 14.6 pg/ml (0-20) D 02/05/22 06:28 Total Protein 6.2 gm/dl (6.0-8.3) 02/06/22 09:09 Albumin 3.9 gm/dl (3.4-5.0) 02/06/22 09:09 Globulin 2.3 gm/dl (2.5-4.0) L 02/06/22 09:09 Albumin/Globulin Ratio 1.7 (0.9-2) 02/06/22 09:09 Procalcitonin < 0.05 ng/ml (0-0.5) 02/05/22 10:07 Urine Color Yellow 02/04/22 14:55 Urine Appearance Clear (Clear) 02/04/22 14:55 Urine pH 5.0 (4.5-7.5) 02/04/22 14:55 Ur Specific [place] > 1.045 (1.000-1.030) H 02/04/22 14:55 Urine Protein Negative (Negative) 02/04/22 14:55 Urine Glucose (UA) Negative (Negative) 02/04/22 14:55 Urine Ketones 1+ (Negative) H 02/04/22 14:55 Urine Blood Negative (Negative) 02/04/22 14:55 Urine Nitrite Negative (Negative) 02/04/22 14:55 Urine Bilirubin Negative (Negative) 02/04/22 14:55 Urine Urobilinogen Negative (Negative) 02/04/22 14:55 Ur Leukocyte Esterase Negative (Negative) 02/04/22 14:55 Nasal Screen MRSA (PCR) Negative (Negative) 02/04/22 19:52 Adenovirus (PCR) Not Detected (NotDetected) 02/04/22 12:43 B. pertussis DNA (PCR) Not Detected (NotDetected) 02/04/22 12:43 B.parapertussis DNA PCR Not Detected (NotDetected) 02/04/22 12:43 C. pneumoniae DNA (PCR) Not Detected (NotDetected) 02/04/22 12:43 Coronavirus OC43 (PCR) Not Detected (NotDetected) 02/04/22 12:43 Coronavirus HKU1 (PCR) Not Detected (NotDetected) 02/04/22 12:43 Coronavirus 229E (PCR) Not Detected (NotDetected) 02/04/22 12:43 SARS-CoV-2 (PCR) Not Detected (NotDetected) 02/04/22 12:43 Coronavirus NL63 (PCR) Not Detected (NotDetected) 02/04/22 12:43 Human Metapneumovir PCR Not Detected (NotDetected) 02/04/22 12:43 Influenza Type A (PCR) Not Detected (NotDetected) 02/04/22 12:43 Influenza Type B (PCR) Not Detected (NotDetected) 02/04/22 12:43 M. pneumoniae (PCR) Not Detected (NotDetected) 02/04/22 12:43 Parainfluenza 1 (PCR) Not Detected (NotDetected) 02/04/22 12:43 Parainfluenza 2 (PCR) Not Detected (NotDetected) 02/04/22 12:43 Parainfluenza 3 (PCR) Not Detected (NotDetected) 02/04/22 12:43 Parainfluenza 4 (PCR) Not Detected (NotDetected) 02/04/22 12:43 RSV (PCR) Not Detected (NotDetected) 02/04/22 12:43 Entero/Rhino (PCR) Not Detected (NotDetected) 02/04/22 12:43 Impressions Chest X-Ray 02/04/22 12:09 XR chest 1V portable CLINICAL HISTORY: Dyspnea. COMPARISON STUDY: Chest radiograph February 10, 2017. FINDINGS: No pneumothorax or pleural effusion is present. Lung hyperexpansion is noted with lower lung predominant emphysema. Bronchial endovalves project over the right inferior hilum. Cardiac size is normal. Mediastinal contours are normal. There is no evidence for pulmonary edema. There is no consolidation. IMPRESSION: No acute cardiopulmonary findings. Emphysema. ACT 112: Negative or not required by law. Electronically signed by: Bimal Olmstead M.D. 02/04/2022 12:21 PM Chest CTA 02/04/22 12:29 CT ANGIOGRAPHY OF THE CHEST, PULMONARY EMBOLUS PROTOCOL CLINICAL HISTORY: SOB, hx of COPD, pulm valve replacement COMPARISON STUDY: Chest radiographs February 10, 2017 and February 04, 2022. TECHNIQUE: Following IV administration of 115 mL of Optiray, helical axial images of the chest were obtained utilizing the pulmonary embolus protocol. Maximal intensity projections and sagittal and coronal reformats were viewed on an independent 3D workstation. IV contrast was administered without complication. Automated exposure control was utilized for the study. A dose lowering technique was utilized adhering to the principles of ALARA. CT DOSE: 305.42 mGycm FINDINGS: No pulmonary emboli are identified although this exam is mildly compromised by respiratory motion. There is no thoracic aorta dissection. Size of the heart is normal. There is no pericardial effusion. No pneumothorax or pleural effusion is noted. Severe emphysema is noted. This is greater within the lower lobes. There is mild bronchial wall thickening. A few foci of tree-in-bud nodules are present. These are most pronounced within the left upper lobe. There is no consolidation. Note is made of bronchial endovalves within the posterior and medial basal segments of the right lower lobe. There is no cavitation. Bony thorax is unremarkable. Visualized portions of the upper abdomen are unremarkable. A few small pulmonary nodules measure up to 5 mm. A lingular nodule is unchanged since abdominal CT of November 13, 2018. This is benign. IMPRESSION: 1. No pulmonary emboli identified. Exam mildly compromised by respiratory motion. 2. Severe emphysema. 3. A few scattered cluster tree-in-bud nodules which favor an infectious or inflammatory process. No consolidation. ACT 112: Negative or not required by law. Electronically signed by: Bimal Olmstead M.D. 02/04/2022 2:25 PM Medications Administered Current Inpatient Medications Acetaminophen (Acetaminophen 325 Mg Tab) 650 mg PO Q4H PRN PRN Reason: Pain or Fever Stop: 03/06/22 19:15 Benzonatate (Benzonatate 100 Mg Capsule) 100 mg PO TID PRN PRN Reason: Cough Stop: 03/06/22 19:15 Clonazepam (Clonazepam 0.25 Mg Tab) 0.25 mg PO BID PRN PRN Reason: Anxiety Stop: 03/06/22 19:29 Last Admin: 02/06/22 09:14 Dose: 0.25 mg Docusate Sodium (Docusate Sodium 100 Mg Cap) 100 mg PO BID LONNIE Stop: 03/06/22 20:59 Last Admin: 02/06/22 09:02 Dose: 100 mg Enoxaparin Sodium (Enoxaparin Inj 30 Mg/0.3 Ml Syr) 30 mg SQ Q24H LONNIE Stop: 03/06/22 20:59 Last Admin: 02/05/22 21:11 Dose: 30 mg Fluticasone Furoate (Fluticasone Furoate 100mcg 14 Puffs/Inhaler) 1 puffs INH DAILY LONNIE Stop: 03/06/22 19:59 Last Admin: 02/06/22 09:04 Dose: 1 puffs Fluticasone Propionate (Fluticasone Propionate Na Spr 16 Gm Btl) 2 sprays MURALI DAILY LONNIE Stop: 03/07/22 08:59 Last Admin: 02/06/22 09:03 Dose: 2 sprays Guaifenesin (Guaifenesin Sugar Free 100 Mg/5 Ml Udc) 100 mg PO QID PRN PRN Reason: Cough Stop: 03/06/22 19:15 Azithromycin 500 mg/ Dextrose 255 mls @ 127.5 mls/hr IV Q24H LONNIE Stop: 02/09/22 19:59 Last Infusion: 02/05/22 23:35 Dose: Infused Methylprednisolone 40 mg/ (Syringe) 0.64 mls @ 1.5 mls/min IV BID [facility] Stop: 03/06/22 20:59 Last Admin: 02/06/22 10:44 Dose: 1.5 mls/min Prolastin 1 vial/ Syringe 15 mls @ IV WE LONNIE Stop: 03/13/22 10:57 Ipratropium Cordova (Ipratropium [place] Neb Soln 0.02% 2.5 Ml Vial) 0.5 mg INH Q6R [facility] Stop: 03/06/22 19:29 Last Admin: 02/06/22 13:25 Dose: Not Given Levalbuterol HCl (Levalbuterol 1.25mg/0.5ml Neb) 1.25 mg INH Q6R [facility] Stop: 03/06/22 19:29 Last Admin: 02/06/22 13:25 Dose: Not Given Nystatin (Nystatin Susp 500,000 U/5 Ml Udc) 5 ml PO QID [facility] Stop: 02/14/22 16:59 Last Admin: 02/06/22 12:29 Dose: 5 ml Polyethylene Glycol (Polyethylene (Miralax) 17 Gm Pack) 17 gm PO DAILY PRN PRN Reason: Constipation Stop: 03/06/22 19:15 Pseudoephedrine HCl (Pseudoephedrine Hcl 30 Mg Tab) 30 mg PO Q6H PRN PRN Reason: congestion/ear fullness Stop: 03/06/22 22:24 Sodium Chloride (Sodium Chlor 7% 4 Ml Neb) 4 ml NEB BIDR LONNIE Stop: 03/07/22 18:59 Last Admin: 02/06/22 07:46 Dose: Not Given Umeclidinium/Vilanterol (Umeclidinium/Vilanterol 62.5/25mcg 7 Puffs/Inhaler) 1 puffs INH DAILY [facility] Stop: 03/06/22 19:59 Last Admin: 02/06/22 09:04 Dose: 1 puffs
[2022-02-06] MEDS ORDERED: PROTEINASE INHIBITOR IV ONE ×2 (14:30→15:15)
[2022-02-06] MEDS ORDERED: ALPHA IV ONE ×2 (14:30→15:15)
[2022-02-06] MEDS: LEVALBUTEROL TARTRATE 15 GM HFA.AER.AD INH PRN (16:15)
[2022-02-06] MEDS: AZITHROMYCIN 500 MG in DEXTROSE 5% 250 ML IV SCH (20:11)
[2022-02-06] MEDS: ENOXAPARIN INJ 30 MG/0.3 ML SYR SQ SCH (20:12)
--- NOTE | 2022-02-06 22:20 | Electrocardiogram Report ---
Test Reason : Blood Pressure : / mmHG Vent. Rate : 085 BPM Atrial Rate : 085 BPM P-R Int : 116 ms QRS Dur : 070 ms QT Int : 366 ms P-R-T Axes : 087 265 077 degrees QTc Int : 435 ms Poor data quality, interpretation may be adversely affected Normal sinus rhythm with sinus arrhythmia Right superior axis deviation Inferior infarct Abnormal ECG When compared with ECG of 04-FEB-2022 12:13, Nonspecific T wave abnormality no longer evident in Anterior leads Confirmed by Ishan Thrasher ([id number]) on 02/06/2022 10:20:33 PM Referred By: REFERRED SELF Confirmed By:Ishan Thrasher
[2022-02-07] MEDS: IPRATROPIUM BROMIDE NEB SOLN 0.02% 2.5 ML VIAL INH SCH ×4 (00:28→20:05)
[2022-02-07] MEDS ORDERED: LEVALBUTEROL HCL 1.25 MG/3 ML NEB INH SCH (01:00)
--- NOTE | 2022-02-07 06:36 | Electrocardiogram Report ---
Test Reason : Blood Pressure : / mmHG Vent. Rate : 078 BPM Atrial Rate : 078 BPM P-R Int : 120 ms QRS Dur : 066 ms QT Int : 370 ms P-R-T Axes : 082 269 075 degrees QTc Int : 421 ms Poor data quality, interpretation may be adversely affected Normal sinus rhythm Right superior axis deviation Nonspecific T wave abnormality Possible Inferior infarct Abnormal ECG When compared with ECG of 04-FEB-2022 23:49, No significant change Confirmed by Ishan Thrasher ([id number]) on 02/07/2022 6:35:48 AM Referred By: REFERRED SELF Confirmed By:Ishan Thrasher
[2022-02-07] MEDS: LEVALBUTEROL HCL 1.25 MG/3 ML NEB INH SCH ×3 (07:14→19:30)
[2022-02-07] MEDS: SODIUM CHLOR 7% 4 ML NEB NEB SCH ×2 (07:14→20:06)
[2022-02-07] MEDS: NYSTATIN SUSP 500,000 U/5 ML UDC PO SCH ×4 (09:15→20:30)
[2022-02-07] MEDS: UMECLIDINIUM/VILANTEROL 62.5/25MCG 7 PUFFS/INHALER INH SCH (09:15)
[2022-02-07] MEDS: FLUTICASONE FUROATE 100MCG 14 PUFFS/INHALER INH SCH (09:15)
[2022-02-07] MEDS: FLUTICASONE PROPIONATE NA SPR 16 GM BTL NAE SCH (09:15)
[2022-02-07] MEDS: DOCUSATE SODIUM 100 MG CAP PO SCH ×2 (09:16→20:30)
[2022-02-07] MEDS: predniSONE 20 MG TAB PO SCH (09:22)
--- NOTE | 2022-02-07 09:38 | Pulmonology Progress Note ---
Date of Service February 07, 2022 Assessment & Plan (1) COPD with acute exacerbation: (2) Yjcwb-[id number] deficiency: (3) History of tobacco use: (4) Acute dyspnea: (5) Mucus plugging of bronchi: (6) Acute respiratory failure with hypoxia: Plan CT chest 02/04/2022 personally reviewed: Centrilobular emphysema appreciated bilaterally in the upper lobes, panlobular emphysema appreciated bilateral lower lobes Tree-in-bud opacities appreciated bilaterally on the periphery, left lower lobe 5 mm pulmonary nodule Endobronchial valve appreciated likely an RB 6 as well as possibly medial basal No significant mediastinal lymphadenopathy ABG 02/04/2022: 7.45/50/93 --Acute on chronic hypoxic respiratory failure Likely secondary to COPD exacerbation Patient did have 3 endobronchial valve placement in April 2020 as well as removal of 1 valve [address] Bennett, patient has total of 2 valves right now in the right lower lobe COVID-19 PCR, influenza A/B, RSV negative Respiratory bio fire negative Try to keep O2 saturation between 88-92% -- COPD with emphysema, chronic hypoxic respiratory failure Severe On low-dose trilogy at home Patient will benefit from azithromycin 250 mg Tdbyhq-Xmcgtfrzc-Zucogl, QTC 421 on 02/05/2022 Will benefit from pulmonary rehab as an outpatient -- History of alpha-1 antitrypsin deficiency On Prolastin C weekly --Left lower lobe pulmonary nodule 5 mm Unchanged 2017 Does not need to be followed up -- Ex-smoker Quit in 2018 Plan: Continue with hypertonic saline and flutter valve Complete the course of antibiotic for total of 5 days Try to keep oxygen saturation between 88-92% On discharge would recommend hypertonic saline nebulized twice a day along with azithromycin 250 mg Dtuulj-Vwwetkqdq-Eeutdy Continue with Trelegy inhaler on discharge Case was discussed with Dr. Briones Please note the above document was generated using voice recognition software. It may contain grammatical, syntax or spelling errors.Any formal questions or concerns about the content, text or information contained within the body of this dictation should be directly addressed to the provider for clarification. Admission and Anticipated Discharge Date Admission Date: February 04, 2022 Subjective Patient seen and examined at bedside. No acute distress, no adverse events overnight. Patient was walking around in the room. He was saturating 90% on 2 L. Heart rate was in the 110s. Overall he says he is feeling a little bit better. Still gets short of breath on minimal exertion Has been bringing up phlegm. No hemoptysis Denies any chest pain, no headache, no nausea, no vomiting Review of Systems Review of Systems: All systems reviewed & are unremarkable except as noted in Subjective Physical Exam Physical Exam: Constitutional: No acute distress, frail-appearing HEENT: EOMI, PERRLA Respiratory system: Decreased air entry bilaterally, no wheeze, no rhonchi, positive crackles bilateral lower lobes CVS: S1-S2 positive, no murmurs or gallops Abdomen: Soft, nontender, nondistended, positive bowel sounds x4 Extremities: +2 pulses bilaterally radialis/ dorsalis pedis, no cyanosis, no edema Neuro: Awake alert oriented x3 Psych: Normal mood and affect G/U: No Lubin Skin: no rashes, warm and dry Lymphatic: no cervical or axillary lymphadenopathy Results & Data Results & Data ([facility]) Vital Signs (Past 12 Hours) Vital Signs Temp Pulse Pulse Resp BP BP Pulse Ox 02/07/22 08:23 36.4 C L 73 20 136/84 98 02/07/22 07:36 55 L 02/07/22 07:16 80 18 98 02/07/22 05:18 36.8 C 62 18 124/75 97 02/06/22 22:00 36.6 C 62 20 126/75 97 02/06/22 23:32 79 02/06/22 22:01 O2 Del Method O2 Flow Rate 02/07/22 08:23 Nasal Cannula 3 02/07/22 07:36 02/07/22 07:16 Nasal Cannula 2 02/07/22 05:18 Nasal Cannula 2 02/06/22 22:00 Nasal Cannula 2 02/06/22 23:32 02/06/22 22:01 Nasal Cannula 2 Laboratory Results 02/06/22 09:09 02/06/22 09:09 PG Care Time/CCT Total # of Minutes Spent Total Time Spent with Patient: Total time spent is greater than 50% in coordination of care (as documented) at patient's floor/unit and/or counseling patient: Coding Level of Care Code 67177 Subseq Hosp Care Lvl 2 Diagnoses COPD with acute exacerbation J44.1 Spggn-3-rkbwfmtmwcw deficiency E88.01 History of tobacco use Z87.891 Acute dyspnea R06.00 Mucus plugging of bronchi T17.500A Acute respiratory failure with hypoxia J96.01
[2022-02-07] MEDS: LEVALBUTEROL TARTRATE 15 GM HFA.AER.AD INH PRN ×2 (09:40→13:23)
--- NOTE | 2022-02-07 11:45 | Hospitalist Progress Note ---
Date of Service February 07, 2022 Assessment & Plan (1) COPD with acute exacerbation: Plan: In ER afebrile, 96% on chronic 2 L oxygen via nasal cannula. ABG: pH: 7.4, PCO2: 50, PO2: 93, HCO3: 35 CXR: No acute cardiopulmonary findings. Emphysema. CTA Chest: 1. No pulmonary emboli identified. Exam mildly compromised by respiratory motion. 2. Severe emphysema. 3. A few scattered cluster tree-in-bud nodules which favor an infectious or inflammatory process. No consolidation. In ER given cefepime, vancomycin, Solu-Medrol 60 mg IV, nebulizer treatment Records request made Continue Solu-Medro Xopenex/Atrovent nebs Continue supplemental oxygen Pulmonology consult. Discussed with Dr. Collado. - continue azithromycin x5 days total - change to prednisone 40mg x3 days, then 20mg x3 days starting today 02/07/2022 - will discharge to pulm rehab with hypertonic saline nebs, azithromycin 250mg MWF lifelong when ready for discharge (2) Paroxysmal atrial fibrillation: Plan: History episode of atrial fibrillation while hospitalized receiving albuterol nebulizer treatments in 2018. Patient denies any history recurrent atrial fibrillation. Not on anticoagulation or rate control medications Current sinus rhythm (3) Body mass index (BMI) less than 16.5: Plan: BMI: 15 Patient reports 10 pound weight loss over the past month, generalized weakness.generalized weakness likely secondary to his recurrent hospitalizations and COPD exacerbations, deconditioning Dietitian consult Boost daily PT/OT eval (4) Prostate cancer: Plan: S/P prostatectomy Plan DVT ppx: Lovenox SQ Code Status: Full code Dispo: telemetry Follows with Dr Maribeth Dyer for routine care. Saúl Briones MD [facility] Medicine Admission and Anticipated Discharge Date Admission Date: February 04, 2022 Subjective Patient with alpha-1 anti-trypsin deficiency with severe COPD with chronic hypoxemic and hypercapnic respiratory failure on home O2 1-2L NC, h/o bronchial pulmonary valve s/p removal, h/o prostate cancer s/p resection presented with COPD exacerbation. Started on antibiotics with azithromycin and steroids. Pulm consulted. Will need hypertonic saline nebs on discharge and azithromycin 250mg M-W-F lifelong. Patient to go to pulmonary rehab at [facility] when medically ready. Patient feels minimally better than yesterday breathing. Denies chest pain, cough improved, denies n/v/d, abdominal pain, dysuria, fever or chills. Review of Systems Review of Systems: All systems reviewed & are unremarkable except as noted in Subjective Physical Exam Physical Exam: General: no acute respiratory distress on current 2L via NC and sitting upright in bed at rest. Thin elderly male, appears older than stated age Head: normocephalic, atraumatic Eyes: PERRL, EOM's intact, conjunctiva non-injected, anicteric ENT: normal inspection external ears, nose, mucous membranes moist Neck: supple, trachea midline Lungs: no respiratory distress at rest. +conversational dyspnea, +diminished breath sounds throughout, no wheezing, no rales noted CV: RRR, no murmur, no pretibial edema Abd: normal BS, soft, non-tender Ext: no cyanosis, no calf tenderness Neuro: A&O x 3, no focal deficits noted, normal affect Skin: warm, dry Results & Data Results & Data ([facility]) Vital Signs (Past 12 Hours) Vital Signs Temp Pulse Pulse Resp BP BP Pulse Ox 02/07/22 09:15 02/07/22 08:23 36.4 C L 73 20 136/84 98 02/07/22 07:36 55 L 02/07/22 07:16 80 18 98 02/07/22 05:18 36.8 C 62 18 124/75 97 O2 Del Method O2 Flow Rate 02/07/22 09:15 Nasal Cannula 2 02/07/22 08:23 Nasal Cannula 3 02/07/22 07:36 02/07/22 07:16 Nasal Cannula 2 02/07/22 05:18 Nasal Cannula 2 Diagnostic Findings Laboratory Results WBC 10.39 K/ul (4.8-10.8) 02/06/22 09:09 RBC 4.70 M/uL (4.63-6.08) 02/06/22 09:09 Hgb 14.9 g/dl (14.0-18.0) 02/06/22 09:09 Hct 43.7 % (40.1-51.0) 02/06/22 09:09 MCV 93.0 fL (80.0-100.0) 02/06/22 09:09 MCH 31.7 pg (25.0-34.0) 02/06/22 09:09 MCHC 34.1 g/dL (32.0-36.0) 02/06/22 09:09 RDW Std Deviation 41.1 fL (36.4-46.3) 02/06/22 09:09 RDW Coeff of Avila 11.9 % (11.5-14.5) 02/06/22 09:09 Plt Count 339 K/uL (130-400) 02/06/22 09:09 MPV 9.3 fL (9.4-12.4) L 02/06/22 09:09 Immature Gran % (Auto) 0.4 % 02/05/22 06:28 Neut % (Auto) 93.8 % 02/05/22 06:28 Lymph % (Auto) 2.9 % 02/05/22 06:28 Dixie % (Auto) 2.9 % 02/05/22 06:28 Eos % (Auto) 0.0 % 02/05/22 06:28 Baso % (Auto) 0.0 % 02/05/22 06:28 Neut # (Auto) 7.40 K/uL (1.4-6.5) H 02/05/22 06:28 Lymph # (Auto) 0.23 K/uL (1.2-3.4) L 02/05/22 06:28 Dixie # (Auto) 0.23 K/uL (0.24-0.82) L 02/05/22 06:28 Eos # (Auto) 0.00 K/uL (0-0.50) 02/05/22 06:28 Baso # (Auto) 0.00 K/uL (0-0.2) 02/05/22 06:28 Immature Gran # (Auto) 0.03 K/uL (0.00-0.02) H 02/05/22 06:28 PT 10.4 Seconds (9.0-12.0) 02/06/22 09:09 INR 1.0 (0.9-1.1) 02/06/22 09:09 ABG pH 7.45 (7.35-7.45) 02/04/22 12:50 ABG pCO2 50 mmHg (35-46) H 02/04/22 12:50 ABG pO2 93 mmHg (80-95) 02/04/22 12:50 ABG HCO3 35 mmol/L (19-24) H 02/04/22 12:50 ABG O2 Saturation 95.1 % (90-95) H 02/04/22 12:50 ABG Base Excess 9.2 mEq/L (-9-1.8) H 02/04/22 12:50 Lemuel Test Pos (Pos) 02/04/22 12:50 Oxygen Given 02/04/22 12:50 Sodium 141 mmol/L (136-145) 02/06/22 09:09 Potassium 3.6 mmol/L (3.5-5.1) 02/06/22 09:09 Chloride 101 mmol/L (98-107) 02/06/22 09:09 Carbon Dioxide 35 mmol/L (21-32) H 02/06/22 09:09 Anion Gap 5 (3-11) 02/06/22 09:09 BUN 23 mg/dl (6-23) 02/06/22 09:09 Creatinine 0.72 mg/dl (0.6-1.4) 02/06/22 09:09 Est Cr Clr Drug Dosing 66.8 ml/min 02/06/22 09:09 Est GFR ( Amer) 117.5 ml/min 02/06/22 09:09 Est GFR (Non-Af Amer) 101.4 ml/min 02/06/22 09:09 BUN/Creatinine Ratio 31.9 (10-20) H 02/06/22 09:09 Glucose 156 mg/dl (70-99(Fasting)) H 02/06/22 09:09 Calcium 8.6 mg/dl (8.5-10.1) 02/06/22 09:09 Phosphorus 3.2 mg/dl (2.5-4.9) 02/06/22 09:09 Magnesium 2.2 mg/dl (1.7-2.4) 02/06/22 09:09 Total Bilirubin 0.6 mg/dl (0.2-1.0) 02/06/22 09:09 AST 16 U/L (13-39) 02/06/22 09:09 ALT 35 U/L (7-52) 02/06/22 09:09 Alkaline Phosphatase 53 U/L (34-104) 02/06/22 09:09 Troponin I High Sens 14.6 pg/ml (0-20) D 02/05/22 06:28 Total Protein 6.2 gm/dl (6.0-8.3) 02/06/22 09:09 Albumin 3.9 gm/dl (3.4-5.0) 02/06/22 09:09 Globulin 2.3 gm/dl (2.5-4.0) L 02/06/22 09:09 Albumin/Globulin Ratio 1.7 (0.9-2) 02/06/22 09:09 Procalcitonin < 0.05 ng/ml (0-0.5) 02/05/22 10:07 Urine Color Yellow 02/04/22 14:55 Urine Appearance Clear (Clear) 02/04/22 14:55 Urine pH 5.0 (4.5-7.5) 02/04/22 14:55 Ur Specific [place] > 1.045 (1.000-1.030) H 02/04/22 14:55 Urine Protein Negative (Negative) 02/04/22 14:55 Urine Glucose (UA) Negative (Negative) 02/04/22 14:55 Urine Ketones 1+ (Negative) H 02/04/22 14:55 Urine Blood Negative (Negative) 02/04/22 14:55 Urine Nitrite Negative (Negative) 02/04/22 14:55 Urine Bilirubin Negative (Negative) 02/04/22 14:55 Urine Urobilinogen Negative (Negative) 02/04/22 14:55 Ur Leukocyte Esterase Negative (Negative) 02/04/22 14:55 Nasal Screen MRSA (PCR) Negative (Negative) 02/04/22 19:52 Adenovirus (PCR) Not Detected (NotDetected) 02/04/22 12:43 B. pertussis DNA (PCR) Not Detected (NotDetected) 02/04/22 12:43 B.parapertussis DNA PCR Not Detected (NotDetected) 02/04/22 12:43 C. pneumoniae DNA (PCR) Not Detected (NotDetected) 02/04/22 12:43 Coronavirus OC43 (PCR) Not Detected (NotDetected) 02/04/22 12:43 Coronavirus HKU1 (PCR) Not Detected (NotDetected) 02/04/22 12:43 Coronavirus 229E (PCR) Not Detected (NotDetected) 02/04/22 12:43 SARS-CoV-2 (PCR) Not Detected (NotDetected) 02/04/22 12:43 Coronavirus NL63 (PCR) Not Detected (NotDetected) 02/04/22 12:43 Human Metapneumovir PCR Not Detected (NotDetected) 02/04/22 12:43 Influenza Type A (PCR) Not Detected (NotDetected) 02/04/22 12:43 Influenza Type B (PCR) Not Detected (NotDetected) 02/04/22 12:43 M. pneumoniae (PCR) Not Detected (NotDetected) 02/04/22 12:43 Parainfluenza 1 (PCR) Not Detected (NotDetected) 02/04/22 12:43 Parainfluenza 2 (PCR) Not Detected (NotDetected) 02/04/22 12:43 Parainfluenza 3 (PCR) Not Detected (NotDetected) 02/04/22 12:43 Parainfluenza 4 (PCR) Not Detected (NotDetected) 02/04/22 12:43 RSV (PCR) Not Detected (NotDetected) 02/04/22 12:43 Entero/Rhino (PCR) Not Detected (NotDetected) 02/04/22 12:43 Impressions Chest X-Ray 02/04/22 12:09 XR chest 1V portable CLINICAL HISTORY: Dyspnea. COMPARISON STUDY: Chest radiograph February 10, 2017. FINDINGS: No pneumothorax or pleural effusion is present. Lung hyperexpansion is noted with lower lung predominant emphysema. Bronchial endovalves project over the right inferior hilum. Cardiac size is normal. Mediastinal contours are normal. There is no evidence for pulmonary edema. There is no consolidation. IMPRESSION: No acute cardiopulmonary findings. Emphysema. ACT 112: Negative or not required by law. Electronically signed by: Bimal Olmstead M.D. 02/04/2022 12:21 PM Chest CTA 02/04/22 12:29 CT ANGIOGRAPHY OF THE CHEST, PULMONARY EMBOLUS PROTOCOL CLINICAL HISTORY: SOB, hx of COPD, pulm valve replacement COMPARISON STUDY: Chest radiographs February 10, 2017 and February 04, 2022. TECHNIQUE: Following IV administration of 115 mL of Optiray, helical axial images of the chest were obtained utilizing the pulmonary embolus protocol. Maximal intensity projections and sagittal and coronal reformats were viewed on an independent 3D workstation. IV contrast was administered without complication. Automated exposure control was utilized for the study. A dose lowering technique was utilized adhering to the principles of ALARA. CT DOSE: 305.42 mGycm FINDINGS: No pulmonary emboli are identified although this exam is mildly compromised by respiratory motion. There is no thoracic aorta dissection. Size of the heart is normal. There is no pericardial effusion. No pneumothorax or pleural effusion is noted. Severe emphysema is noted. This is greater within the lower lobes. There is mild bronchial wall thickening. A few foci of tree-in-bud nodules are present. These are most pronounced within the left upper lobe. There is no consolidation. Note is made of bronchial endovalves within the posterior and medial basal segments of the right lower lobe. There is no cavitation. Bony thorax is unremarkable. Visualized portions of the upper abdomen are unremarkable. A few small pulmonary nodules measure up to 5 mm. A lingular nodule is unchanged since abdominal CT of November 13, 2018. This is benign. IMPRESSION: 1. No pulmonary emboli identified. Exam mildly compromised by respiratory motion. 2. Severe emphysema. 3. A few scattered cluster tree-in-bud nodules which favor an infectious or inflammatory process. No consolidation. ACT 112: Negative or not required by law. Electronically signed by: Bimal Olmstead M.D. 02/04/2022 2:25 PM Medications Administered Current Inpatient Medications Acetaminophen (Acetaminophen 325 Mg Tab) 650 mg PO Q4H PRN PRN Reason: Pain or Fever Stop: 03/06/22 19:15 Benzonatate (Benzonatate 100 Mg Capsule) 100 mg PO TID PRN PRN Reason: Cough Stop: 03/06/22 19:15 Clonazepam (Clonazepam 0.25 Mg Tab) 0.25 mg PO BID PRN PRN Reason: Anxiety Stop: 03/06/22 19:29 Last Admin: 02/06/22 22:20 Dose: 0.25 mg Docusate Sodium (Docusate Sodium 100 Mg Cap) 100 mg PO BID LONNIE Stop: 03/06/22 20:59 Last Admin: 02/07/22 09:16 Dose: 100 mg Enoxaparin Sodium (Enoxaparin Inj 30 Mg/0.3 Ml Syr) 30 mg SQ Q24H LONNIE Stop: 03/06/22 20:59 Last Admin: 02/06/22 20:12 Dose: 30 mg Fluticasone Furoate (Fluticasone Furoate 100mcg 14 Puffs/Inhaler) 1 puffs INH DAILY LONNIE Stop: 03/06/22 19:59 Last Admin: 02/07/22 09:15 Dose: 1 puffs Fluticasone Propionate (Fluticasone Propionate Na Spr 16 Gm Btl) 2 sprays MURALI DAILY LONNIE Stop: 03/07/22 08:59 Last Admin: 02/07/22 09:15 Dose: 2 sprays Guaifenesin (Guaifenesin Sugar Free 100 Mg/5 Ml Udc) 100 mg PO QID PRN PRN Reason: Cough Stop: 03/06/22 19:15 Azithromycin 500 mg/ Dextrose 255 mls @ 127.5 mls/hr IV Q24H LONNIE Stop: 02/09/22 19:59 Last Infusion: 02/06/22 22:16 Dose: Infused Ipratropium [place] (Ipratropium [place] Neb Soln 0.02% 2.5 Ml Vial) 0.5 mg INH Q6R LONNIE Stop: 03/06/22 19:29 Last Admin: 02/07/22 07:14 Dose: Not Given Levalbuterol HCl (Levalbuterol Tartrate 15 Gm Hfa.Aer.Ad) 2 puffs INH QIDR PRN; Protocol PRN Reason: shortness of breath Stop: 03/08/22 14:31 Last Admin: 02/07/22 09:40 Dose: 2 puffs Levalbuterol HCl (Levalbuterol Hcl 1.25 Mg/3 Ml Neb) 1.25 mg INH Q6R LONNIE Stop: 03/09/22 00:59 Last Admin: 02/07/22 07:14 Dose: 1.25 mg Nystatin (Nystatin Susp 500,000 U/5 Ml Udc) 5 ml PO QID LONNIE Stop: 02/14/22 16:59 Last Admin: 02/07/22 09:15 Dose: 5 ml Polyethylene Glycol (Polyethylene (Miralax) 17 Gm Pack) 17 gm PO DAILY PRN PRN Reason: Constipation Stop: 03/06/22 19:15 Prednisone (Prednisone 20 Mg Tab) 40 mg PO DAILY [facility] Stop: 02/10/22 08:59 Last Admin: 02/07/22 09:22 Dose: 40 mg Prednisone (Prednisone 20 Mg Tab) 20 mg PO DAILY [facility] Stop: 02/13/22 08:59 Prednisone (Prednisone 10 Mg Tablet) 10 mg PO DAILY [facility] Stop: 03/15/22 08:59 Pseudoephedrine HCl (Pseudoephedrine Hcl 30 Mg Tab) 30 mg PO Q6H PRN PRN Reason: congestion/ear fullness Stop: 03/06/22 22:24 Sodium Chloride (Sodium Chlor 7% 4 Ml Neb) 4 ml NEB BIDR [facility] Stop: 03/07/22 18:59 Last Admin: 02/07/22 07:14 Dose: Not Given Umeclidinium/Vilanterol (Umeclidinium/Vilanterol 62.5/25mcg 7 Puffs/Inhaler) 1 puffs INH DAILY [facility] Stop: 03/06/22 19:59 Last Admin: 02/07/22 09:15 Dose: 1 puffs
[2022-02-07] MEDS: AZITHROMYCIN 500 MG in DEXTROSE 5% 250 ML IV SCH (20:30)
[2022-02-07] MEDS: ENOXAPARIN INJ 30 MG/0.3 ML SYR SQ SCH (20:30)
[2022-02-07] MEDS: guaiFENesin 600 MG TABCR PO SCH (21:31)
[2022-02-07] MEDS: clonazePAM 0.25 MG TAB PO PRN (21:31)
[2022-02-08] MEDS: LEVALBUTEROL HCL 1.25 MG/3 ML NEB INH SCH ×4 (00:23→22:24)
[2022-02-08] MEDS: IPRATROPIUM BROMIDE NEB SOLN 0.02% 2.5 ML VIAL INH SCH ×2 (00:23→07:53)
[2022-02-08] MEDS: clonazePAM 0.25 MG TAB PO PRN ×2 (06:40→23:17)
[2022-02-08] MEDS: SODIUM CHLOR 7% 4 ML NEB NEB SCH (07:53)
--- NOTE | 2022-02-08 08:03 | Pulmonology Progress Note ---
Date of Service February 08, 2022 Assessment & Plan (1) COPD with acute exacerbation: (2) Exaef-1-mzrlyrhdtvp deficiency: (3) History of tobacco use: (4) Acute dyspnea: (5) Mucus plugging of bronchi: (6) Acute respiratory failure with hypoxia: Plan CT chest 02/04/2022 personally reviewed: Centrilobular emphysema appreciated bilaterally in the upper lobes, panlobular emphysema appreciated bilateral lower lobes Tree-in-bud opacities appreciated bilaterally on the periphery, left lower lobe 5 mm pulmonary nodule Endobronchial valve appreciated likely an RB 6 as well as possibly medial basal No significant mediastinal lymphadenopathy ABG 02/04/2022: 7.45/50/93 --Acute on chronic hypoxic respiratory failure Likely secondary to COPD exacerbation Patient did have 3 endobronchial valve placement in April 2020 as well as removal of 1 valve [address] Bennett, patient has total of 2 valves right now in the right lower lobe COVID-19 PCR, influenza A/B, RSV negative Respiratory bio fire negative Try to keep O2 saturation between 88-92% -- COPD with emphysema, chronic hypoxic respiratory failure Severe On low-dose trilogy at home Patient will benefit from azithromycin 250 mg [id number]-[id number], QTC 421 on 02/05/2022 Will benefit from pulmonary rehab as an outpatient -- History of alpha-1 antitrypsin deficiency On Prolastin C weekly --Left lower lobe pulmonary nodule 5 mm Unchanged 2017 Does not need to be followed up -- Ex-smoker Quit in 2018 Plan: Try to keep oxygen saturation between 88-92% On discharge would recommend hypertonic saline nebulized twice a day along with azithromycin 250 mg [id number]-[id number] Continue with Trelegy inhaler on discharge No further recommendation from pulmonary perspective. We will sign off Please call directly with any questions Case was discussed with Dr. Briones Please note the above document was generated using voice recognition software. It may contain grammatical, syntax or spelling errors.Any formal questions or concerns about the content, text or information contained within the body of this dictation should be directly addressed to the provider for clarification. Admission and Anticipated Discharge Date Admission Date: February 04, 2022 Subjective Patient seen and examined at bedside. No acute distress, no adverse events overnight He was saturating 99% on 2 L nasal cannula. I went down to 1 L. Overall he says he is feeling better compared to before Bringing up clear phlegm. Denies any chest pain, no chest tightness Hemoptysis Fair appetite. Has been walking around in the room Review of Systems Review of Systems: All systems reviewed & are unremarkable except as noted in Subjective Physical Exam Physical Exam: Constitutional: No acute distress, frail-appearing HEENT: EOMI, PERRLA Respiratory system: Decreased air entry bilaterally, no wheeze, no rhonchi, positive crackles bilateral lower lobes CVS: S1-S2 positive, no murmurs or gallops Abdomen: Soft, nontender, nondistended, positive bowel sounds x4 Extremities: +2 pulses bilaterally radialis/ dorsalis pedis, no cyanosis, no edema Neuro: Awake alert oriented x3 Psych: Normal mood and affect G/U: No Lubin Skin: no rashes, warm and dry Lymphatic: no cervical or axillary lymphadenopathy Results & Data Results & Data ([facility]) Vital Signs (Past 12 Hours) Vital Signs Temp Pulse Pulse Resp BP BP Pulse Ox 02/08/22 07:58 80 02/08/22 07:45 36.3 C L 67 18 132/80 97 02/08/22 03:25 36.8 C 63 20 118/76 97 02/07/22 23:41 100 H 02/07/22 22:32 36.8 C 78 18 132/87 97 02/07/22 21:41 O2 Del Method O2 Flow Rate 02/08/22 07:58 02/08/22 07:45 Nasal Cannula 2.5 02/08/22 03:25 Nasal Cannula 2 02/07/22 23:41 02/07/22 22:32 Nasal Cannula 02/07/22 21:41 Nasal Cannula 2 Laboratory Results 02/06/22 09:09 02/06/22 09:09 PG Care Time/CCT Total # of Minutes Spent Total Time Spent with Patient: Total time spent is greater than 50% in coordination of care (as documented) at patient's floor/unit and/or counseling patient: Coding Level of Care Code 47637 Subseq Hosp Care Lvl 2 Diagnoses COPD with acute exacerbation J44.1 Trhvh-3-gbsgzzsrqii deficiency E88.01 History of tobacco use Z87.891 Acute dyspnea R06.00 Mucus plugging of bronchi T17.500A Acute respiratory failure with hypoxia J96.01
[2022-02-08] MEDS: NYSTATIN SUSP 500,000 U/5 ML UDC PO SCH ×4 (08:14→21:01)
[2022-02-08] MEDS: DOCUSATE SODIUM 100 MG CAP PO SCH ×2 (08:14→21:02)
[2022-02-08] MEDS: predniSONE 20 MG TAB PO SCH (08:14)
[2022-02-08] MEDS: guaiFENesin 600 MG TABCR PO SCH ×2 (08:14→21:00)
[2022-02-08] MEDS: FLUTICASONE FUROATE 100MCG 14 PUFFS/INHALER INH SCH (08:15)
[2022-02-08] MEDS: FLUTICASONE PROPIONATE NA SPR 16 GM BTL NAE SCH (08:15)
[2022-02-08] MEDS: UMECLIDINIUM/VILANTEROL 62.5/25MCG 7 PUFFS/INHALER INH SCH (08:15)
--- NOTE | 2022-02-08 12:16 | Hospitalist Progress Note ---
Date of Service February 08, 2022 Assessment & Plan (1) COPD with acute exacerbation: Plan: In ER afebrile, 96% on chronic 2 L oxygen via nasal cannula. ABG: pH: 7.4, PCO2: 50, PO2: 93, HCO3: 35 CXR: No acute cardiopulmonary findings. Emphysema. CTA Chest: 1. No pulmonary emboli identified. Exam mildly compromised by respiratory motion. 2. Severe emphysema. 3. A few scattered cluster tree-in-bud nodules which favor an infectious or inflammatory process. No consolidation. In ER given cefepime, vancomycin, Solu-Medrol 60 mg IV, nebulizer treatment Records request made Continue Solu-Medro Xopenex/Atrovent nebs Continue supplemental oxygen Pulmonology consult. Discussed with Dr. Collado. - continue azithromycin x5 days total - continue to prednisone 40mg x3 days, then 20mg x3 days started 02/07/2022 - will discharge to pulm rehab with hypertonic saline nebs, azithromycin 250mg MWF lifelong when ready for discharge (2) Paroxysmal atrial fibrillation: Plan: History episode of atrial fibrillation while hospitalized receiving albuterol nebulizer treatments in 2018. Patient denies any history recurrent atrial fibrillation. Not on anticoagulation or rate control medications Current sinus rhythm (3) Body mass index (BMI) less than 16.5: Plan: BMI: 15 Patient reports 10 pound weight loss over the past month, generalized weakness.generalized weakness likely secondary to his recurrent hospitalizations and COPD exacerbations, deconditioning Dietitian consult Boost daily PT/OT eval (4) Prostate cancer: Plan: S/P prostatectomy Plan DVT ppx: Lovenox SQ Code Status: Full code Dispo: telemetry Follows with Dr Maribeth Dyer for routine care. Saúl Briones MD [facility] Medicine Admission and Anticipated Discharge Date Admission Date: February 04, 2022 Subjective Patient with alpha-1 anti-trypsin deficiency with severe COPD with chronic hypoxemic and hypercapnic respiratory failure on home O2 1-2L NC, h/o bronchial pulmonary valve s/p removal, h/o prostate cancer s/p resection presented with COPD exacerbation. Started on antibiotics with azithromycin and steroids. Pulm consulted. Will need hypertonic saline nebs on discharge and azithromycin 250mg M-W-F lifelong. Patient to go to pulmonary rehab at [facility] when medically ready. Patient feels better than yesterday breathing. Denies chest pain, cough improved, denies n/v/d, abdominal pain, dysuria, fever or chills. Review of Systems Review of Systems: All systems reviewed & are unremarkable except as noted in Subjective Physical Exam Physical Exam: General: no acute respiratory distress on current 2L via NC and sitting upright in bed at rest. Thin elderly male, appears older than stated age Head: normocephalic, atraumatic Eyes: PERRL, EOM's intact, conjunctiva non-injected, anicteric ENT: normal inspection external ears, nose, mucous membranes moist Neck: supple, trachea midline Lungs: no respiratory distress at rest. +conversational dyspnea, +diminished breath sounds throughout, no wheezing, no rales noted CV: RRR, no murmur, no pretibial edema Abd: normal BS, soft, non-tender Ext: no cyanosis, no calf tenderness Neuro: A&O x 3, no focal deficits noted, normal affect Skin: warm, dry Results & Data Results & Data ([facility]) Vital Signs (Past 12 Hours) Vital Signs Temp Pulse Pulse Resp BP BP Pulse Ox 02/08/22 10:46 02/08/22 08:22 94 H 18 94 02/08/22 07:58 80 02/08/22 07:45 36.3 C L 67 18 132/80 97 02/08/22 03:25 36.8 C 63 20 118/76 97 O2 Del Method O2 Flow Rate 02/08/22 10:46 Nasal Cannula 2 02/08/22 08:22 Nasal Cannula 2 02/08/22 07:58 02/08/22 07:45 Nasal Cannula 2.5 02/08/22 03:25 Nasal Cannula 2 Diagnostic Findings Laboratory Results WBC 10.39 K/ul (4.8-10.8) 02/06/22 09:09 RBC 4.70 M/uL (4.63-6.08) 02/06/22 09:09 Hgb 14.9 g/dl (14.0-18.0) 02/06/22 09:09 Hct 43.7 % (40.1-51.0) 02/06/22 09:09 MCV 93.0 fL (80.0-100.0) 02/06/22 09:09 MCH 31.7 pg (25.0-34.0) 02/06/22 09:09 MCHC 34.1 g/dL (32.0-36.0) 02/06/22 09:09 RDW Std Deviation 41.1 fL (36.4-46.3) 02/06/22 09:09 RDW Coeff of [place]ila 11.9 % (11.5-14.5) 02/06/22 09:09 Plt Count 339 K/uL (130-400) 02/06/22 09:09 MPV 9.3 fL (9.4-12.4) L 02/06/22 09:09 Immature Gran % (Auto) 0.4 % 02/05/22 06:28 Neut % (Auto) 93.8 % 02/05/22 06:28 Lymph % (Auto) 2.9 % 02/05/22 06:28 [place] % (Auto) 2.9 % 02/05/22 06:28 Eos % (Auto) 0.0 % 02/05/22 06:28 Baso % (Auto) 0.0 % 02/05/22 06:28 Neut # (Auto) 7.40 K/uL (1.4-6.5) H 02/05/22 06:28 Lymph # (Auto) 0.23 K/uL (1.2-3.4) L 02/05/22 06:28 [place] # (Auto) 0.23 K/uL (0.24-0.82) L 02/05/22 06:28 Eos # (Auto) 0.00 K/uL (0-0.50) 02/05/22 06:28 Baso # (Auto) 0.00 K/uL (0-0.2) 02/05/22 06:28 Immature Gran # (Auto) 0.03 K/uL (0.00-0.02) H 02/05/22 06:28 PT 10.4 Seconds (9.0-12.0) 02/06/22 09:09 INR 1.0 (0.9-1.1) 02/06/22 09:09 ABG pH 7.45 (7.35-7.45) 02/04/22 12:50 ABG pCO2 50 mmHg (35-46) H 02/04/22 12:50 ABG pO2 93 mmHg (80-95) 02/04/22 12:50 ABG HCO3 35 mmol/L (19-24) H 02/04/22 12:50 ABG O2 Saturation 95.1 % (90-95) H 02/04/22 12:50 ABG Base Excess 9.2 mEq/L (-9-1.8) H 02/04/22 12:50 Lemuel Test Pos (Pos) 02/04/22 12:50 Oxygen Given 02/04/22 12:50 Sodium 141 mmol/L (136-145) 02/06/22 09:09 Potassium 3.6 mmol/L (3.5-5.1) 02/06/22 09:09 Chloride 101 mmol/L (98-107) 02/06/22 09:09 Carbon Dioxide 35 mmol/L (21-32) H 02/06/22 09:09 Anion Gap 5 (3-11) 02/06/22 09:09 BUN 23 mg/dl (6-23) 02/06/22 09:09 Creatinine 0.72 mg/dl (0.6-1.4) 02/06/22 09:09 Est Cr Clr Drug Dosing 66.8 ml/min 02/06/22 09:09 Est GFR ( Amer) 117.5 ml/min 02/06/22 09:09 Est GFR (Non-Af Amer) 101.4 ml/min 02/06/22 09:09 BUN/Creatinine Ratio 31.9 (10-20) H 02/06/22 09:09 Glucose 156 mg/dl (70-99(Fasting)) H 02/06/22 09:09 Calcium 8.6 mg/dl (8.5-10.1) 02/06/22 09:09 Phosphorus 3.2 mg/dl (2.5-4.9) 02/06/22 09:09 Magnesium 2.2 mg/dl (1.7-2.4) 02/06/22 09:09 Total Bilirubin 0.6 mg/dl (0.2-1.0) 02/06/22 09:09 AST 16 U/L (13-39) 02/06/22 09:09 ALT 35 U/L (7-52) 02/06/22 09:09 Alkaline Phosphatase 53 U/L (34-104) 02/06/22 09:09 Troponin I High Sens 14.6 pg/ml (0-20) D 02/05/22 06:28 Total Protein 6.2 gm/dl (6.0-8.3) 02/06/22 09:09 Albumin 3.9 gm/dl (3.4-5.0) 02/06/22 09:09 Globulin 2.3 gm/dl (2.5-4.0) L 02/06/22 09:09 Albumin/Globulin Ratio 1.7 (0.9-2) 02/06/22 09:09 Procalcitonin < 0.05 ng/ml (0-0.5) 02/05/22 10:07 Urine Color Yellow 02/04/22 14:55 Urine Appearance Clear (Clear) 02/04/22 14:55 Urine pH 5.0 (4.5-7.5) 02/04/22 14:55 Ur Specific [place] > 1.045 (1.000-1.030) H 02/04/22 14:55 Urine Protein Negative (Negative) 02/04/22 14:55 Urine Glucose (UA) Negative (Negative) 02/04/22 14:55 Urine Ketones 1+ (Negative) H 02/04/22 14:55 Urine Blood Negative (Negative) 02/04/22 14:55 Urine Nitrite Negative (Negative) 02/04/22 14:55 Urine Bilirubin Negative (Negative) 02/04/22 14:55 Urine Urobilinogen Negative (Negative) 02/04/22 14:55 Ur Leukocyte Esterase Negative (Negative) 02/04/22 14:55 Nasal Screen MRSA (PCR) Negative (Negative) 02/04/22 19:52 Adenovirus (PCR) Not Detected (NotDetected) 02/04/22 12:43 B. pertussis DNA (PCR) Not Detected (NotDetected) 02/04/22 12:43 B.parapertussis DNA PCR Not Detected (NotDetected) 02/04/22 12:43 C. pneumoniae DNA (PCR) Not Detected (NotDetected) 02/04/22 12:43 Coronavirus OC43 (PCR) Not Detected (NotDetected) 02/04/22 12:43 Coronavirus HKU1 (PCR) Not Detected (NotDetected) 02/04/22 12:43 Coronavirus 229E (PCR) Not Detected (NotDetected) 02/04/22 12:43 SARS-CoV-2 (PCR) Not Detected (NotDetected) 02/04/22 12:43 Coronavirus NL63 (PCR) Not Detected (NotDetected) 02/04/22 12:43 Human Metapneumovir PCR Not Detected (NotDetected) 02/04/22 12:43 Influenza Type A (PCR) Not Detected (NotDetected) 02/04/22 12:43 Influenza Type B (PCR) Not Detected (NotDetected) 02/04/22 12:43 M. pneumoniae (PCR) Not Detected (NotDetected) 02/04/22 12:43 Parainfluenza 1 (PCR) Not Detected (NotDetected) 02/04/22 12:43 Parainfluenza 2 (PCR) Not Detected (NotDetected) 02/04/22 12:43 Parainfluenza 3 (PCR) Not Detected (NotDetected) 02/04/22 12:43 Parainfluenza 4 (PCR) Not Detected (NotDetected) 02/04/22 12:43 RSV (PCR) Not Detected (NotDetected) 02/04/22 12:43 Entero/Rhino (PCR) Not Detected (NotDetected) 02/04/22 12:43 Impressions Chest X-Ray 02/04/22 12:09 XR chest 1V portable CLINICAL HISTORY: Dyspnea. COMPARISON STUDY: Chest radiograph February 10, 2017. FINDINGS: No pneumothorax or pleural effusion is present. Lung hyperexpansion is noted with lower lung predominant emphysema. Bronchial endovalves project over the right inferior hilum. Cardiac size is normal. Mediastinal contours are normal. There is no evidence for pulmonary edema. There is no consolidation. IMPRESSION: No acute cardiopulmonary findings. Emphysema. ACT 112: Negative or not required by law. Electronically signed by: Bimal Olmstead M.D. 02/04/2022 12:21 PM Chest CTA 02/04/22 12:29 CT ANGIOGRAPHY OF THE CHEST, PULMONARY EMBOLUS PROTOCOL CLINICAL HISTORY: SOB, hx of COPD, pulm valve replacement COMPARISON STUDY: Chest radiographs February 10, 2017 and February 04, 2022. TECHNIQUE: Following IV administration of 115 mL of Optiray, helical axial images of the chest were obtained utilizing the pulmonary embolus protocol. Maximal intensity projections and sagittal and coronal reformats were viewed on an independent 3D workstation. IV contrast was administered without complication. Automated exposure control was utilized for the study. A dose lowering technique was utilized adhering to the principles of ALARA. CT DOSE: 305.42 mGycm FINDINGS: No pulmonary emboli are identified although this exam is mildly compromised by respiratory motion. There is no thoracic aorta dissection. Size of the heart is normal. There is no pericardial effusion. No pneumothorax or pleural effusion is noted. Severe emphysema is noted. This is greater within the lower lobes. There is mild bronchial wall thickening. A few foci of tree-in-bud nodules are present. These are most pronounced within the left upper lobe. There is no consolidation. Note is made of bronchial endovalves within the posterior and medial basal segments of the right lower lobe. There is no cavitation. Bony thorax is unremarkable. Visualized portions of the upper abdomen are unremarkable. A few small pulmonary nodules measure up to 5 mm. A lingular nodule is unchanged since abdominal CT of November 13, 2018. This is benign. IMPRESSION: 1. No pulmonary emboli identified. Exam mildly compromised by respiratory motion. 2. Severe emphysema. 3. A few scattered cluster tree-in-bud nodules which favor an infectious or inflammatory process. No consolidation. ACT 112: Negative or not required by law. Electronically signed by: Bimal Olmstead M.D. 02/04/2022 2:25 PM Medications Administered Current Inpatient Medications Acetaminophen (Acetaminophen 325 Mg Tab) 650 mg PO Q4H PRN PRN Reason: Pain or Fever Stop: 03/06/22 19:15 Benzonatate (Benzonatate 100 Mg Capsule) 100 mg PO TID PRN PRN Reason: Cough Stop: 03/06/22 19:15 Clonazepam (Clonazepam 0.25 Mg Tab) 0.25 mg PO BID PRN PRN Reason: Anxiety Stop: 03/06/22 19:29 Last Admin: 02/08/22 06:40 Dose: 0.25 mg Docusate Sodium (Docusate Sodium 100 Mg Cap) 100 mg PO BID LONNIE Stop: 03/06/22 20:59 Last Admin: 02/08/22 08:14 Dose: 100 mg Enoxaparin Sodium (Enoxaparin Inj 30 Mg/0.3 Ml Syr) 30 mg SQ Q24H LONNIE Stop: 03/06/22 20:59 Last Admin: 02/07/22 20:30 Dose: 30 mg Fluticasone Furoate (Fluticasone Furoate 100mcg 14 Puffs/Inhaler) 1 puffs INH DAILY LONNIE Stop: 03/06/22 19:59 Last Admin: 02/08/22 08:15 Dose: 1 puffs Fluticasone Propionate (Fluticasone Propionate Na Spr 16 Gm Btl) 2 sprays MURALI DAILY LONNIE Stop: 03/07/22 08:59 Last Admin: 02/08/22 08:15 Dose: 2 sprays Guaifenesin (Guaifenesin Sugar Free 100 Mg/5 Ml Udc) 100 mg PO QID PRN PRN Reason: Cough Stop: 03/06/22 19:15 Guaifenesin (Guaifenesin 600 Mg Tabcr) 600 mg PO Q12 LONNIE Stop: 03/09/22 20:59 Last Admin: 02/08/22 08:14 Dose: 600 mg Azithromycin 500 mg/ Dextrose 255 mls @ 127.5 mls/hr IV Q24H LONNIE Stop: 02/09/22 19:59 Last Infusion: 02/07/22 22:33 Dose: Infused Levalbuterol HCl (Levalbuterol Tartrate 15 Gm Hfa.Aer.Ad) 2 puffs INH QIDR PRN; Protocol PRN Reason: shortness of breath Stop: 03/08/22 14:31 Last Admin: 02/07/22 13:23 Dose: 2 puffs Levalbuterol HCl (Levalbuterol Hcl 1.25 Mg/3 Ml Neb) 1.25 mg INH Q6R LONNIE Stop: 03/09/22 00:59 Last Admin: 02/08/22 07:53 Dose: 1.25 mg Nystatin (Nystatin Susp 500,000 U/5 Ml Udc) 5 ml PO QID LONNIE Stop: 02/14/22 16:59 Last Admin: 02/08/22 08:14 Dose: 5 ml Polyethylene Glycol (Polyethylene (Miralax) 17 Gm Pack) 17 gm PO DAILY PRN PRN Reason: Constipation Stop: 03/06/22 19:15 Prednisone (Prednisone 20 Mg Tab) 40 mg PO DAILY LONNIE Stop: 02/10/22 08:59 Last Admin: 02/08/22 08:14 Dose: 40 mg Prednisone (Prednisone 20 Mg Tab) 20 mg PO DAILY [facility] Stop: 02/13/22 08:59 Prednisone (Prednisone 10 Mg Tablet) 10 mg PO DAILY [facility] Stop: 03/15/22 08:59 Pseudoephedrine HCl (Pseudoephedrine Hcl 30 Mg Tab) 30 mg PO Q6H PRN PRN Reason: congestion/ear fullness Stop: 03/06/22 22:24 Umeclidinium/Vilanterol (Umeclidinium/Vilanterol 62.5/25mcg 7 Puffs/Inhaler) 1 puffs INH DAILY [facility] Stop: 03/06/22 19:59 Last Admin: 02/08/22 08:15 Dose: 1 puffs
[2022-02-08] MEDS: AZITHROMYCIN 500 MG in DEXTROSE 5% 250 ML IV SCH (21:00)
[2022-02-08] MEDS: ENOXAPARIN INJ 30 MG/0.3 ML SYR SQ SCH (21:00)
[2022-02-09] MEDS: LEVALBUTEROL HCL 1.25 MG/3 ML NEB INH SCH ×4 (00:02→20:18)
[2022-02-09 06:25] LABS: Hematocrit (blood only) 39.4 % (40.1-51.0); Hemoglobin 13.8 g/dl (14.0-18.0); Mean Corpuscular Volume 91.4 fL (80.0-100.0); Mean Platelet Volume 9.3 fL (9.4-12.4); Platelet Count 235 K/uL (130-400); RDW Coefficient of Variation 11.6 % (11.5-14.5); RDW Standard Deviation 39.5 fL (36.4-46.3); Red Blood Count 4.31 M/uL (4.63-6.08); White Blood Count 4.83 K/ul (4.8-10.8)
[2022-02-09 06:38] LABS: BUN Creatinine Ratio 26.7 (10-20); Calcium 8.2 mg/dl (8.5-10.1); Creatinine Clr Calc Pharmacy 64.7 ml/min; Est GFR (African American) 115.6 ml/min; Est GFR (Non-African American) 99.7 ml/min; Magnesium 2.3 mg/dl (1.7-2.4); Phosphorus 2.6 mg/dl (2.5-4.9); Potassium 3.8 mmol/L (3.5-5.1)
[2022-02-09] MEDS: FLUTICASONE FUROATE 100MCG 14 PUFFS/INHALER INH SCH (08:37)
[2022-02-09] MEDS: predniSONE 20 MG TAB PO SCH (08:38)
[2022-02-09] MEDS: NYSTATIN SUSP 500,000 U/5 ML UDC PO SCH ×4 (08:38→21:20)
[2022-02-09] MEDS: FLUTICASONE PROPIONATE NA SPR 16 GM BTL NAE SCH (08:38)
[2022-02-09] MEDS: UMECLIDINIUM/VILANTEROL 62.5/25MCG 7 PUFFS/INHALER INH SCH (08:39)
[2022-02-09] MEDS: DOCUSATE SODIUM 100 MG CAP PO SCH ×2 (08:39→21:19)
[2022-02-09] MEDS: guaiFENesin 600 MG TABCR PO SCH ×2 (08:40→22:29)
--- NOTE | 2022-02-09 12:22 | Hospitalist Progress Note ---
Date of Service February 09, 2022 Assessment & Plan (1) COPD with acute exacerbation: Plan: In ER afebrile, 96% on chronic 2 L oxygen via nasal cannula. ABG: pH: 7.4, PCO2: 50, PO2: 93, HCO3: 35 CXR: No acute cardiopulmonary findings. Emphysema. CTA Chest: 1. No pulmonary emboli identified. Exam mildly compromised by respiratory motion. 2. Severe emphysema. 3. A few scattered cluster tree-in-bud nodules which favor an infectious or inflammatory process. No consolidation. In ER given cefepime, vancomycin, Solu-Medrol 60 mg IV, nebulizer treatment Records request made Continue Solu-Medro Xopenex/Atrovent nebs Continue supplemental oxygen Pulmonology consult. Discussed with Dr. Collado. - continue azithromycin x5 days total - continue to prednisone 40mg x3 days, then 20mg x3 days started 02/07/2022 - will discharge to pulm rehab with hypertonic saline nebs, azithromycin 250mg MWF lifelong when ready for discharge - anticipate discharge to [facility] tomorrow 02/10/2022 (2) Paroxysmal atrial fibrillation: Plan: History episode of atrial fibrillation while hospitalized receiving albuterol nebulizer treatments in 2018. Patient denies any history recurrent atrial fibrillation. Not on anticoagulation or rate control medications Current sinus rhythm (3) Body mass index (BMI) less than 16.5: Plan: BMI: 15 Patient reports 10 pound weight loss over the past month, generalized weakness.generalized weakness likely secondary to his recurrent hospitalizations and COPD exacerbations, deconditioning Dietitian consult Boost daily PT/OT eval (4) Prostate cancer: Plan: S/P prostatectomy Plan DVT ppx: Lovenox SQ Code Status: Full code Dispo: telemetry Follows with Dr Maribeth Dyer for routine care. Saúl Briones MD [facility] Medicine Admission and Anticipated Discharge Date Admission Date: February 04, 2022 Subjective Patient with alpha-1 anti-trypsin deficiency with severe COPD with chronic hypoxemic and hypercapnic respiratory failure on home O2 1-2L NC, h/o bronchial pulmonary valve s/p removal, h/o prostate cancer s/p resection presented with COPD exacerbation. Started on antibiotics with azithromycin and steroids. Pulm consulted. Will need hypertonic saline nebs on discharge and azithromycin 250mg M-W-F lifelong. Patient to go to pulmonary rehab at [facility] when medically ready. Patient feels better than yesterday breathing. Denies chest pain, cough improved, denies n/v/d, abdominal pain, dysuria, fever or chills. Review of Systems Review of Systems: All systems reviewed & are unremarkable except as noted in Subjective Physical Exam Physical Exam: General: no acute respiratory distress on current 2L via NC and sitting upright in bed at rest. Thin elderly male, appears older than stated age Head: normocephalic, atraumatic Eyes: PERRL, EOM's intact, conjunctiva non-injected, anicteric ENT: normal inspection external ears, nose, mucous membranes moist Neck: supple, trachea midline Lungs: no respiratory distress at rest. +conversational dyspnea, +diminished breath sounds throughout, no wheezing, no rales noted CV: RRR, no murmur, no pretibial edema Abd: normal BS, soft, non-tender Ext: no cyanosis, no calf tenderness Neuro: A&O x 3, no focal deficits noted, normal affect Skin: warm, dry Results & Data Results & Data ([facility]) Vital Signs (Past 12 Hours) Vital Signs Temp Pulse Pulse Resp BP BP Pulse Ox 02/09/22 11:06 36.5 C 91 H 20 120/79 97 02/09/22 07:30 02/09/22 07:53 88 02/09/22 07:27 36.4 C L 79 20 114/79 98 02/09/22 03:15 36.5 C 79 20 134/91 100 O2 Del Method O2 Flow Rate 02/09/22 11:06 Nasal Cannula 2 02/09/22 07:30 Nasal Cannula 2.5 02/09/22 07:53 02/09/22 07:27 Nasal Cannula 2 02/09/22 03:15 Nasal Cannula 2 Diagnostic Findings Laboratory Results WBC 4.83 K/ul (4.8-10.8) 02/09/22 05:53 RBC 4.31 M/uL (4.63-6.08) L 02/09/22 05:53 Hgb 13.8 g/dl (14.0-18.0) L 02/09/22 05:53 Hct 39.4 % (40.1-51.0) L 02/09/22 05:53 MCV 91.4 fL (80.0-100.0) 02/09/22 05:53 MCH 32.0 pg (25.0-34.0) 02/09/22 05:53 MCHC 35.0 g/dL (32.0-36.0) 02/09/22 05:53 RDW Std Deviation 39.5 fL (36.4-46.3) 02/09/22 05:53 RDW Coeff of [place] 11.6 % (11.5-14.5) 02/09/22 05:53 Plt Count 235 K/uL (130-400) 02/09/22 05:53 MPV 9.3 fL (9.4-12.4) L 02/09/22 05:53 Immature Gran % (Auto) 0.4 % 02/05/22 06:28 Neut % (Auto) 93.8 % 02/05/22 06:28 Lymph % (Auto) 2.9 % 02/05/22 06:28 [place] % (Auto) 2.9 % 02/05/22 06:28 Eos % (Auto) 0.0 % 02/05/22 06:28 Baso % (Auto) 0.0 % 02/05/22 06:28 Neut # (Auto) 7.40 K/uL (1.4-6.5) H 02/05/22 06:28 Lymph # (Auto) 0.23 K/uL (1.2-3.4) L 02/05/22 06:28 [place] # (Auto) 0.23 K/uL (0.24-0.82) L 02/05/22 06:28 Eos # (Auto) 0.00 K/uL (0-0.50) 02/05/22 06:28 Baso # (Auto) 0.00 K/uL (0-0.2) 02/05/22 06:28 Immature Gran # (Auto) 0.03 K/uL (0.00-0.02) H 02/05/22 06:28 PT 10.4 Seconds (9.0-12.0) 02/06/22 09:09 INR 1.0 (0.9-1.1) 02/06/22 09:09 ABG pH 7.45 (7.35-7.45) 02/04/22 12:50 ABG pCO2 50 mmHg (35-46) H 02/04/22 12:50 ABG pO2 93 mmHg (80-95) 02/04/22 12:50 ABG HCO3 35 mmol/L (19-24) H 02/04/22 12:50 ABG O2 Saturation 95.1 % (90-95) H 02/04/22 12:50 ABG Base Excess 9.2 mEq/L (-9-1.8) H 02/04/22 12:50 Lemuel Test Pos (Pos) 02/04/22 12:50 Oxygen Given 02/04/22 12:50 Sodium 140 mmol/L (136-145) 02/09/22 05:53 Potassium 3.8 mmol/L (3.5-5.1) 02/09/22 05:53 Chloride 100 mmol/L (98-107) 02/09/22 05:53 Carbon Dioxide 38 mmol/L (21-32) H 02/09/22 05:53 Anion Gap 2 (3-11) L 02/09/22 05:53 BUN 20 mg/dl (6-23) 02/09/22 05:53 Creatinine 0.75 mg/dl (0.6-1.4) 02/09/22 05:53 Est Cr Clr Drug Dosing 64.7 ml/min 02/09/22 05:53 Est GFR ( Amer) 115.6 ml/min 02/09/22 05:53 Est GFR (Non-Af Amer) 99.7 ml/min 02/09/22 05:53 BUN/Creatinine Ratio 26.7 (10-20) H 02/09/22 05:53 Glucose 81 mg/dl (70-99(Fasting)) 02/09/22 05:53 Calcium 8.2 mg/dl (8.5-10.1) L 02/09/22 05:53 Phosphorus 2.6 mg/dl (2.5-4.9) 02/09/22 05:53 Magnesium 2.3 mg/dl (1.7-2.4) 02/09/22 05:53 Total Bilirubin 0.6 mg/dl (0.2-1.0) 02/06/22 09:09 AST 16 U/L (13-39) 02/06/22 09:09 ALT 35 U/L (7-52) 02/06/22 09:09 Alkaline Phosphatase 53 U/L (34-104) 02/06/22 09:09 Troponin I High Sens 14.6 pg/ml (0-20) D 02/05/22 06:28 Total Protein 6.2 gm/dl (6.0-8.3) 02/06/22 09:09 Albumin 3.9 gm/dl (3.4-5.0) 02/06/22 09:09 Globulin 2.3 gm/dl (2.5-4.0) L 02/06/22 09:09 Albumin/Globulin Ratio 1.7 (0.9-2) 02/06/22 09:09 Procalcitonin < 0.05 ng/ml (0-0.5) 02/05/22 10:07 Urine Color Yellow 02/04/22 14:55 Urine Appearance Clear (Clear) 02/04/22 14:55 Urine pH 5.0 (4.5-7.5) 02/04/22 14:55 Ur Specific [place] > 1.045 (1.000-1.030) H 02/04/22 14:55 Urine Protein Negative (Negative) 02/04/22 14:55 Urine Glucose (UA) Negative (Negative) 02/04/22 14:55 Urine Ketones 1+ (Negative) H 02/04/22 14:55 Urine Blood Negative (Negative) 02/04/22 14:55 Urine Nitrite Negative (Negative) 02/04/22 14:55 Urine Bilirubin Negative (Negative) 02/04/22 14:55 Urine Urobilinogen Negative (Negative) 02/04/22 14:55 Ur Leukocyte Esterase Negative (Negative) 02/04/22 14:55 Nasal Screen MRSA (PCR) Negative (Negative) 02/04/22 19:52 Adenovirus (PCR) Not Detected (NotDetected) 02/04/22 12:43 B. pertussis DNA (PCR) Not Detected (NotDetected) 02/04/22 12:43 B.parapertussis DNA PCR Not Detected (NotDetected) 02/04/22 12:43 C. pneumoniae DNA (PCR) Not Detected (NotDetected) 02/04/22 12:43 Coronavirus OC43 (PCR) Not Detected (NotDetected) 02/04/22 12:43 Coronavirus HKU1 (PCR) Not Detected (NotDetected) 02/04/22 12:43 Coronavirus 229E (PCR) Not Detected (NotDetected) 02/04/22 12:43 SARS-CoV-2 (PCR) Not Detected (NotDetected) 02/04/22 12:43 Coronavirus NL63 (PCR) Not Detected (NotDetected) 02/04/22 12:43 Human Metapneumovir PCR Not Detected (NotDetected) 02/04/22 12:43 Influenza Type A (PCR) Not Detected (NotDetected) 02/04/22 12:43 Influenza Type B (PCR) Not Detected (NotDetected) 02/04/22 12:43 M. pneumoniae (PCR) Not Detected (NotDetected) 02/04/22 12:43 Parainfluenza 1 (PCR) Not Detected (NotDetected) 02/04/22 12:43 Parainfluenza 2 (PCR) Not Detected (NotDetected) 02/04/22 12:43 Parainfluenza 3 (PCR) Not Detected (NotDetected) 02/04/22 12:43 Parainfluenza 4 (PCR) Not Detected (NotDetected) 02/04/22 12:43 RSV (PCR) Not Detected (NotDetected) 02/04/22 12:43 Entero/Rhino (PCR) Not Detected (NotDetected) 02/04/22 12:43 Impressions Chest X-Ray 02/04/22 12:09 XR chest 1V portable CLINICAL HISTORY: Dyspnea. COMPARISON STUDY: Chest radiograph February 10, 2017. FINDINGS: No pneumothorax or pleural effusion is present. Lung hyperexpansion is noted with lower lung predominant emphysema. Bronchial endovalves project over the right inferior hilum. Cardiac size is normal. Mediastinal contours are normal. There is no evidence for pulmonary edema. There is no consolidation. IMPRESSION: No acute cardiopulmonary findings. Emphysema. ACT 112: Negative or not required by law. Electronically signed by: Bimal Olmstead M.D. 02/04/2022 12:21 PM Chest CTA 02/04/22 12:29 CT ANGIOGRAPHY OF THE CHEST, PULMONARY EMBOLUS PROTOCOL CLINICAL HISTORY: SOB, hx of COPD, pulm valve replacement COMPARISON STUDY: Chest radiographs February 10, 2017 and February 04, 2022. TECHNIQUE: Following IV administration of 115 mL of Optiray, helical axial images of the chest were obtained utilizing the pulmonary embolus protocol. Maximal intensity projections and sagittal and coronal reformats were viewed on an independent 3D workstation. IV contrast was administered without complication. Automated exposure control was utilized for the study. A dose lowering technique was utilized adhering to the principles of ALARA. CT DOSE: 305.42 mGycm FINDINGS: No pulmonary emboli are identified although this exam is mildly compromised by respiratory motion. There is no thoracic aorta dissection. Size of the heart is normal. There is no pericardial effusion. No pneumothorax or pleural effusion is noted. Severe emphysema is noted. This is greater within the lower lobes. There is mild bronchial wall thickening. A few foci of tree-in-bud nodules are present. These are most pronounced within the left upper lobe. There is no consolidation. Note is made of bronchial endovalves within the posterior and medial basal segments of the right lower lobe. There is no cavitation. Bony thorax is unremarkable. Visualized portions of the upper abdomen are unremarkable. A few small pulmonary nodules measure up to 5 mm. A lingular nodule is unchanged since abdominal CT of November 13, 2018. This is benign. IMPRESSION: 1. No pulmonary emboli identified. Exam mildly compromised by respiratory motion. 2. Severe emphysema. 3. A few scattered cluster tree-in-bud nodules which favor an infectious or inflammatory process. No consolidation. ACT 112: Negative or not required by law. Electronically signed by: Bimal Olmstead M.D. 02/04/2022 2:25 PM Medications Administered Current Inpatient Medications Acetaminophen (Acetaminophen 325 Mg Tab) 650 mg PO Q4H PRN PRN Reason: Pain or Fever Stop: 03/06/22 19:15 Benzonatate (Benzonatate 100 Mg Capsule) 100 mg PO TID PRN PRN Reason: Cough Stop: 03/06/22 19:15 Clonazepam (Clonazepam 0.25 Mg Tab) 0.25 mg PO BID PRN PRN Reason: Anxiety Stop: 03/06/22 19:29 Last Admin: 02/08/22 23:17 Dose: 0.25 mg Docusate Sodium (Docusate Sodium 100 Mg Cap) 100 mg PO BID LONNIE Stop: 03/06/22 20:59 Last Admin: 02/09/22 08:39 Dose: Not Given Enoxaparin Sodium (Enoxaparin Inj 30 Mg/0.3 Ml Syr) 30 mg SQ Q24H [facility] Stop: 03/06/22 20:59 Last Admin: 02/08/22 21:00 Dose: 30 mg Fluticasone Furoate (Fluticasone Furoate 100mcg 14 Puffs/Inhaler) 1 puffs INH DAILY LONNIE Stop: 03/06/22 19:59 Last Admin: 02/09/22 08:37 Dose: 1 puffs Fluticasone Propionate (Fluticasone Propionate Na Spr 16 Gm Btl) 2 sprays MURALI DAILY [facility] Stop: 03/07/22 08:59 Last Admin: 02/09/22 08:38 Dose: 2 sprays Guaifenesin (Guaifenesin Sugar Free 100 Mg/5 Ml Udc) 100 mg PO QID PRN PRN Reason: Cough Stop: 03/06/22 19:15 Guaifenesin (Guaifenesin 600 Mg Tabcr) 600 mg PO Q12 LONNIE Stop: 03/09/22 20:59 Last Admin: 02/09/22 08:40 Dose: 600 mg Azithromycin 500 mg/ Dextrose 255 mls @ 127.5 mls/hr IV Q24H [facility] Stop: 02/09/22 19:59 Last Infusion: 02/08/22 23:14 Dose: Infused Levalbuterol HCl (Levalbuterol Tartrate 15 Gm Hfa.Aer.Ad) 2 puffs INH QIDR PRN; Protocol PRN Reason: shortness of breath Stop: 03/08/22 14:31 Last Admin: 02/07/22 13:23 Dose: 2 puffs Levalbuterol HCl (Levalbuterol Hcl 1.25 Mg/3 Ml Neb) 1.25 mg INH Q6R [facility] Stop: 03/09/22 00:59 Last Admin: 02/09/22 06:33 Dose: Not Given Nystatin (Nystatin Susp 500,000 U/5 Ml Udc) 5 ml PO QID [facility] Stop: 02/14/22 16:59 Last Admin: 02/09/22 08:38 Dose: 5 ml Polyethylene Glycol (Polyethylene (Miralax) 17 Gm Pack) 17 gm PO DAILY PRN PRN Reason: Constipation Stop: 03/06/22 19:15 Prednisone (Prednisone 20 Mg Tab) 40 mg PO DAILY [facility] Stop: 02/10/22 08:59 Last Admin: 02/09/22 08:38 Dose: 40 mg Prednisone (Prednisone 20 Mg Tab) 20 mg PO DAILY [facility] Stop: 02/13/22 08:59 Prednisone (Prednisone 10 Mg Tablet) 10 mg PO DAILY [facility] Stop: 03/15/22 08:59 Pseudoephedrine HCl (Pseudoephedrine Hcl 30 Mg Tab) 30 mg PO Q6H PRN PRN Reason: congestion/ear fullness Stop: 03/06/22 22:24 Umeclidinium/Vilanterol (Umeclidinium/Vilanterol 62.5/25mcg 7 Puffs/Inhaler) 1 puffs INH DAILY [facility] Stop: 03/06/22 19:59 Last Admin: 02/09/22 08:39 Dose: 1 puffs
[2022-02-09] MEDS: clonazePAM 0.25 MG TAB PO PRN ×2 (13:24→22:29)
[2022-02-09] MEDS: ENOXAPARIN INJ 30 MG/0.3 ML SYR SQ SCH (21:20)
[2022-02-10] MEDS: LEVALBUTEROL HCL 1.25 MG/3 ML NEB INH SCH ×2 (02:34→06:03)
[2022-02-10] MEDS: FLUTICASONE FUROATE 100MCG 14 PUFFS/INHALER INH SCH (07:47)
[2022-02-10] MEDS: UMECLIDINIUM/VILANTEROL 62.5/25MCG 7 PUFFS/INHALER INH SCH (07:47)
[2022-02-10] MEDS: FLUTICASONE PROPIONATE NA SPR 16 GM BTL NAE SCH (07:52)
[2022-02-10] MEDS: DOCUSATE SODIUM 100 MG CAP PO SCH ×2 (07:52→20:47)
[2022-02-10] MEDS: NYSTATIN SUSP 500,000 U/5 ML UDC PO SCH ×4 (07:52→20:47)
[2022-02-10] MEDS: predniSONE 20 MG TAB PO SCH (10:49)
[2022-02-10] MEDS: guaiFENesin 600 MG TABCR PO SCH ×2 (10:49→20:49)
--- NOTE | 2022-02-10 12:33 | Hospitalist Progress Note ---
Date of Service February 10, 2022 Assessment & Plan (1) COPD with acute exacerbation: Plan: In ER afebrile, 96% on chronic 2 L oxygen via nasal cannula. ABG: pH: 7.4, PCO2: 50, PO2: 93, HCO3: 35 CXR: No acute cardiopulmonary findings. Emphysema. CTA Chest: 1. No pulmonary emboli identified. Exam mildly compromised by respiratory motion. 2. Severe emphysema. 3. A few scattered cluster tree-in-bud nodules which favor an infectious or inflammatory process. No consolidation. In ER given cefepime, vancomycin, Solu-Medrol 60 mg IV, nebulizer treatment Records request made Continue Solu-Medro Xopenex/Atrovent nebs Continue supplemental oxygen Pulmonology consult. Discussed with Dr. Collado. - continue azithromycin x5 days total - continue to prednisone 40mg x3 days, then 20mg x3 days started 02/07/2022 - will discharge to pulm rehab with hypertonic saline nebs, azithromycin 250mg MWF lifelong when ready for discharge - referrals sent by CM as patient would like to not go to [facility] (2) Paroxysmal atrial fibrillation: Plan: History episode of atrial fibrillation while hospitalized receiving albuterol nebulizer treatments in 2018. Patient denies any history recurrent atrial fibrillation. Not on anticoagulation or rate control medications Current sinus rhythm (3) Body mass index (BMI) less than 16.5: Plan: BMI: 15 Patient reports 10 pound weight loss over the past month, generalized weakness.generalized weakness likely secondary to his recurrent hospitalizations and COPD exacerbations, deconditioning Dietitian consult Boost daily PT/OT eval (4) Prostate cancer: Plan: S/P prostatectomy Plan DVT ppx: Lovenox SQ Code Status: Full code Dispo: telemetry Follows with Dr Maribeth Dyer for routine care. Saúl Briones MD [facility] Medicine Admission and Anticipated Discharge Date Admission Date: February 04, 2022 Subjective Patient with alpha-1 anti-trypsin deficiency with severe COPD with chronic hypoxemic and hypercapnic respiratory failure on home O2 1-2L NC, h/o bronchial pulmonary valve s/p removal, h/o prostate cancer s/p resection presented with COPD exacerbation. Started on antibiotics with azithromycin and steroids. Pulm consulted. Will need hypertonic saline nebs on discharge and azithromycin 250mg M-W-F lifelong. Patient to go to pulmonary rehab but patient does not want to go to [facility], CM met with patient, sending referrals to other facilities. Patient feels better than yesterday breathing. Denies chest pain, cough improved, denies n/v/d, abdominal pain, dysuria, fever or chills. 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 Review of Systems Review of Systems: All systems reviewed & are unremarkable except as noted in Subjective Physical Exam Physical Exam: General: no acute respiratory distress on current 2L via NC and sitting upright in bed at rest. Thin elderly male, appears older than stated age Head: normocephalic, atraumatic Eyes: PERRL, EOM's intact, conjunctiva non-injected, anicteric ENT: normal inspection external ears, nose, mucous membranes moist Neck: supple, trachea midline Lungs: no respiratory distress at rest. +conversational dyspnea, +diminished breath sounds throughout, no wheezing, no rales noted CV: RRR, no murmur, no pretibial edema Abd: normal BS, soft, non-tender Ext: no cyanosis, no calf tenderness Neuro: A&O x 3, no focal deficits noted, normal affect Skin: warm, dry Results & Data Results & Data ([facility]) Vital Signs (Past 12 Hours) Vital Signs Temp Pulse Pulse Resp BP BP Pulse Ox 02/10/22 08:00 64 02/10/22 08:00 02/10/22 07:42 36.4 C L 97 H 20 133/93 97 02/10/22 03:07 36.4 C L 63 18 106/68 98 O2 Del Method O2 Flow Rate 02/10/22 08:00 02/10/22 08:00 Nasal Cannula 2 02/10/22 07:42 Nasal Cannula 2 02/10/22 03:07 Nasal Cannula 2 Diagnostic Findings Laboratory Results WBC 4.83 K/ul (4.8-10.8) 02/09/22 05:53 RBC 4.31 M/uL (4.63-6.08) L 02/09/22 05:53 Hgb 13.8 g/dl (14.0-18.0) L 02/09/22 05:53 Hct 39.4 % (40.1-51.0) L 02/09/22 05:53 MCV 91.4 fL (80.0-100.0) 02/09/22 05:53 MCH 32.0 pg (25.0-34.0) 02/09/22 05:53 MCHC 35.0 g/dL (32.0-36.0) 02/09/22 05:53 RDW Std Deviation 39.5 fL (36.4-46.3) 02/09/22 05:53 RDW Coeff of Avila 11.6 % (11.5-14.5) 02/09/22 05:53 Plt Count 235 K/uL (130-400) 02/09/22 05:53 MPV 9.3 fL (9.4-12.4) L 02/09/22 05:53 Immature Gran % (Auto) 0.4 % 02/05/22 06:28 Neut % (Auto) 93.8 % 02/05/22 06:28 Lymph % (Auto) 2.9 % 02/05/22 06:28 [place] % (Auto) 2.9 % 02/05/22 06:28 Eos % (Auto) 0.0 % 02/05/22 06:28 Baso % (Auto) 0.0 % 02/05/22 06:28 Neut # (Auto) 7.40 K/uL (1.4-6.5) H 02/05/22 06:28 Lymph # (Auto) 0.23 K/uL (1.2-3.4) L 02/05/22 06:28 [place] # (Auto) 0.23 K/uL (0.24-0.82) L 02/05/22 06:28 Eos # (Auto) 0.00 K/uL (0-0.50) 02/05/22 06:28 Baso # (Auto) 0.00 K/uL (0-0.2) 02/05/22 06:28 Immature Gran # (Auto) 0.03 K/uL (0.00-0.02) H 02/05/22 06:28 PT 10.4 Seconds (9.0-12.0) 02/06/22 09:09 INR 1.0 (0.9-1.1) 02/06/22 09:09 ABG pH 7.45 (7.35-7.45) 02/04/22 12:50 ABG pCO2 50 mmHg (35-46) H 02/04/22 12:50 ABG pO2 93 mmHg (80-95) 02/04/22 12:50 ABG HCO3 35 mmol/L (19-24) H 02/04/22 12:50 ABG O2 Saturation 95.1 % (90-95) H 02/04/22 12:50 ABG Base Excess 9.2 mEq/L (-9-1.8) H 02/04/22 12:50 Lemuel Test Pos (Pos) 02/04/22 12:50 Oxygen Given 02/04/22 12:50 Sodium 140 mmol/L (136-145) 02/09/22 05:53 Potassium 3.8 mmol/L (3.5-5.1) 02/09/22 05:53 Chloride 100 mmol/L (98-107) 02/09/22 05:53 Carbon Dioxide 38 mmol/L (21-32) H 02/09/22 05:53 Anion Gap 2 (3-11) L 02/09/22 05:53 BUN 20 mg/dl (6-23) 02/09/22 05:53 Creatinine 0.75 mg/dl (0.6-1.4) 02/09/22 05:53 Est Cr Clr Drug Dosing 64.7 ml/min 02/09/22 05:53 Est GFR ( Amer) 115.6 ml/min 02/09/22 05:53 Est GFR (Non-Af Amer) 99.7 ml/min 02/09/22 05:53 BUN/Creatinine Ratio 26.7 (10-20) H 02/09/22 05:53 Glucose 81 mg/dl (70-99(Fasting)) 02/09/22 05:53 Calcium 8.2 mg/dl (8.5-10.1) L 02/09/22 05:53 Phosphorus 2.6 mg/dl (2.5-4.9) 02/09/22 05:53 Magnesium 2.3 mg/dl (1.7-2.4) 02/09/22 05:53 Total Bilirubin 0.6 mg/dl (0.2-1.0) 02/06/22 09:09 AST 16 U/L (13-39) 02/06/22 09:09 ALT 35 U/L (7-52) 02/06/22 09:09 Alkaline Phosphatase 53 U/L (34-104) 02/06/22 09:09 Troponin I High Sens 14.6 pg/ml (0-20) D 02/05/22 06:28 Total Protein 6.2 gm/dl (6.0-8.3) 02/06/22 09:09 Albumin 3.9 gm/dl (3.4-5.0) 02/06/22 09:09 Globulin 2.3 gm/dl (2.5-4.0) L 02/06/22 09:09 Albumin/Globulin Ratio 1.7 (0.9-2) 02/06/22 09:09 Procalcitonin < 0.05 ng/ml (0-0.5) 02/05/22 10:07 Urine Color Yellow 02/04/22 14:55 Urine Appearance Clear (Clear) 02/04/22 14:55 Urine pH 5.0 (4.5-7.5) 02/04/22 14:55 Ur Specific Jay > 1.045 (1.000-1.030) H 02/04/22 14:55 Urine Protein Negative (Negative) 02/04/22 14:55 Urine Glucose (UA) Negative (Negative) 02/04/22 14:55 Urine Ketones 1+ (Negative) H 02/04/22 14:55 Urine Blood Negative (Negative) 02/04/22 14:55 Urine Nitrite Negative (Negative) 02/04/22 14:55 Urine Bilirubin Negative (Negative) 02/04/22 14:55 Urine Urobilinogen Negative (Negative) 02/04/22 14:55 Ur Leukocyte Esterase Negative (Negative) 02/04/22 14:55 Nasal Screen MRSA (PCR) Negative (Negative) 02/04/22 19:52 Adenovirus (PCR) Not Detected (NotDetected) 02/04/22 12:43 B. pertussis DNA (PCR) Not Detected (NotDetected) 02/04/22 12:43 B.parapertussis DNA PCR Not Detected (NotDetected) 02/04/22 12:43 C. pneumoniae DNA (PCR) Not Detected (NotDetected) 02/04/22 12:43 Coronavirus OC43 (PCR) Not Detected (NotDetected) 02/04/22 12:43 Coronavirus HKU1 (PCR) Not Detected (NotDetected) 02/04/22 12:43 Coronavirus 229E (PCR) Not Detected (NotDetected) 02/04/22 12:43 SARS-CoV-2 (PCR) Not Detected (NotDetected) 02/04/22 12:43 Coronavirus NL63 (PCR) Not Detected (NotDetected) 02/04/22 12:43 Human Metapneumovir PCR Not Detected (NotDetected) 02/04/22 12:43 Influenza Type A (PCR) Not Detected (NotDetected) 02/04/22 12:43 Influenza Type B (PCR) Not Detected (NotDetected) 02/04/22 12:43 M. pneumoniae (PCR) Not Detected (NotDetected) 02/04/22 12:43 Parainfluenza 1 (PCR) Not Detected (NotDetected) 02/04/22 12:43 Parainfluenza 2 (PCR) Not Detected (NotDetected) 02/04/22 12:43 Parainfluenza 3 (PCR) Not Detected (NotDetected) 02/04/22 12:43 Parainfluenza 4 (PCR) Not Detected (NotDetected) 02/04/22 12:43 RSV (PCR) Not Detected (NotDetected) 02/04/22 12:43 Entero/Rhino (PCR) Not Detected (NotDetected) 02/04/22 12:43 Impressions Chest X-Ray 02/04/22 12:09 XR chest 1V portable CLINICAL HISTORY: Dyspnea. COMPARISON STUDY: Chest radiograph February 10, 2017. FINDINGS: No pneumothorax or pleural effusion is present. Lung hyperexpansion is noted with lower lung predominant emphysema. Bronchial endovalves project over the right inferior hilum. Cardiac size is normal. Mediastinal contours are normal. There is no evidence for pulmonary edema. There is no consolidation. IMPRESSION: No acute cardiopulmonary findings. Emphysema. ACT 112: Negative or not required by law. Electronically signed by: Bimal Olmstead M.D. 02/04/2022 12:21 PM Chest CTA 02/04/22 12:29 CT ANGIOGRAPHY OF THE CHEST, PULMONARY EMBOLUS PROTOCOL CLINICAL HISTORY: SOB, hx of COPD, pulm valve replacement COMPARISON STUDY: Chest radiographs February 10, 2017 and February 04, 2022. TECHNIQUE: Following IV administration of 115 mL of Optiray, helical axial images of the chest were obtained utilizing the pulmonary embolus protocol. Maximal intensity projections and sagittal and coronal reformats were viewed on an independent 3D workstation. IV contrast was administered without complication. Automated exposure control was utilized for the study. A dose lowering technique was utilized adhering to the principles of ALARA. CT DOSE: 305.42 mGycm FINDINGS: No pulmonary emboli are identified although this exam is mildly compromised by respiratory motion. There is no thoracic aorta dissection. Size of the heart is normal. There is no pericardial effusion. No pneumothorax or pleural effusion is noted. Severe emphysema is noted. This is greater within the lower lobes. There is mild bronchial wall thickening. A few foci of tree-in-bud nodules are present. These are most pronounced within the left upper lobe. There is no consolidation. Note is made of bronchial endovalves within the posterior and medial basal segments of the right lower lobe. There is no cavitation. Bony thorax is unremarkable. Visualized portions of the upper abdomen are unremarkable. A few small pulmonary nodules measure up to 5 mm. A lingular nodule is unchanged since abdominal CT of November 13, 2018. This is benign. IMPRESSION: 1. No pulmonary emboli identified. Exam mildly compromised by respiratory motion. 2. Severe emphysema. 3. A few scattered cluster tree-in-bud nodules which favor an infectious or inflammatory process. No consolidation. ACT 112: Negative or not required by law. Electronically signed by: Bimal Olmstead M.D. 02/04/2022 2:25 PM Medications Administered Current Inpatient Medications Acetaminophen (Acetaminophen 325 Mg Tab) 650 mg PO Q4H PRN PRN Reason: Pain or Fever Stop: 03/06/22 19:15 Benzonatate (Benzonatate 100 Mg Capsule) 100 mg PO TID PRN PRN Reason: Cough Stop: 03/06/22 19:15 Clonazepam (Clonazepam 0.25 Mg Tab) 0.25 mg PO BID PRN PRN Reason: Anxiety Stop: 03/06/22 19:29 Last Admin: 02/09/22 22:29 Dose: 0.25 mg Docusate Sodium (Docusate Sodium 100 Mg Cap) 100 mg PO BID LONNIE Stop: 03/06/22 20:59 Last Admin: 02/10/22 07:52 Dose: Not Given Enoxaparin Sodium (Enoxaparin Inj 30 Mg/0.3 Ml Syr) 30 mg SQ Q24H [facility] Stop: 03/06/22 20:59 Last Admin: 02/09/22 21:20 Dose: 30 mg Fluticasone Furoate (Fluticasone Furoate 100mcg 14 Puffs/Inhaler) 1 puffs INH DAILY [facility] Stop: 03/06/22 19:59 Last Admin: 02/10/22 07:47 Dose: 1 puffs Fluticasone Propionate (Fluticasone Propionate Na Spr 16 Gm Btl) 2 sprays MURALI DAILY [facility] Stop: 03/07/22 08:59 Last Admin: 02/10/22 07:52 Dose: Not Given Guaifenesin (Guaifenesin Sugar Free 100 Mg/5 Ml Udc) 100 mg PO QID PRN PRN Reason: Cough Stop: 03/06/22 19:15 Guaifenesin (Guaifenesin 600 Mg Tabcr) 600 mg PO Q12 [facility] Stop: 03/09/22 20:59 Last Admin: 02/10/22 10:49 Dose: 600 mg Levalbuterol HCl (Levalbuterol Tartrate 15 Gm Hfa.Aer.Ad) 2 puffs INH QIDR PRN; Protocol PRN Reason: shortness of breath Stop: 03/08/22 14:31 Last Admin: 02/07/22 13:23 Dose: 2 puffs Levalbuterol HCl (Levalbuterol Hcl 1.25 Mg/3 Ml Neb) 1.25 mg INH Q6R PRN PRN Reason: Shortness Of Breath Or Wheezing Stop: 03/09/22 00:59 Nystatin (Nystatin Susp 500,000 U/5 Ml Udc) 5 ml PO QID [facility] Stop: 02/14/22 16:59 Last Admin: 02/10/22 07:52 Dose: 5 ml Polyethylene Glycol (Polyethylene (Miralax) 17 Gm Pack) 17 gm PO DAILY PRN PRN Reason: Constipation Stop: 03/06/22 19:15 Prednisone (Prednisone 20 Mg Tab) 20 mg PO DAILY [facility] Stop: 02/13/22 08:59 Last Admin: 02/10/22 10:49 Dose: 20 mg Prednisone (Prednisone 10 Mg Tablet) 10 mg PO DAILY [facility] Stop: 03/15/22 08:59 Pseudoephedrine HCl (Pseudoephedrine Hcl 30 Mg Tab) 30 mg PO Q6H PRN PRN Reason: congestion/ear fullness Stop: 03/06/22 22:24 Umeclidinium/Vilanterol (Umeclidinium/Vilanterol 62.5/25mcg 7 Puffs/Inhaler) 1 puffs INH DAILY LONNIE Stop: 03/06/22 19:59 Last Admin: 02/10/22 07:47 Dose: 1 puffs
[2022-02-10] MEDS: LEVALBUTEROL HCL 1.25 MG/3 ML NEB INH PRN (14:40)
[2022-02-10] MEDS: ACETAMINOPHEN 325 MG TAB PO PRN (15:45)
[2022-02-10] MEDS: ENOXAPARIN INJ 30 MG/0.3 ML SYR SQ SCH (20:49)
[2022-02-10] MEDS: clonazePAM 0.25 MG TAB PO PRN (20:53)
[2022-02-11] MEDS: DOCUSATE SODIUM 100 MG CAP PO SCH ×2 (07:15→20:49)
[2022-02-11] MEDS: FLUTICASONE FUROATE 100MCG 14 PUFFS/INHALER INH SCH (07:43)
[2022-02-11] MEDS: UMECLIDINIUM/VILANTEROL 62.5/25MCG 7 PUFFS/INHALER INH SCH (07:43)
[2022-02-11] MEDS: clonazePAM 0.25 MG TAB PO PRN ×2 (08:52→20:49)
[2022-02-11] MEDS: FLUTICASONE PROPIONATE NA SPR 16 GM BTL NAE SCH (08:52)
[2022-02-11] MEDS: NYSTATIN SUSP 500,000 U/5 ML UDC PO SCH ×4 (08:53→20:49)
[2022-02-11] MEDS: guaiFENesin 600 MG TABCR PO SCH ×2 (08:53→20:49)
[2022-02-11] MEDS: predniSONE 20 MG TAB PO SCH (08:53)
[2022-02-11] MEDS ORDERED: [UNRECOGNIZED DRUG - OTHER] IV SCH (10:58)
--- NOTE | 2022-02-11 13:21 | Hospitalist Progress Note ---
Date of Service February 11, 2022 Assessment & Plan (1) COPD with acute exacerbation: Plan: per Dr. Rehman's notes with addendum: In ER afebrile, 96% on chronic 2 L oxygen via nasal cannula. ABG: pH: 7.4, PCO2: 50, PO2: 93, HCO3: 35 CXR: No acute cardiopulmonary findings. Emphysema. CTA Chest: 1. No pulmonary emboli identified. Exam mildly compromised by respiratory motion. 2. Severe emphysema. 3. A few scattered cluster tree-in-bud nodules which favor an infectious or inflammatory process. No consolidation. In ER given cefepime, vancomycin, Solu-Medrol 60 mg IV, nebulizer treatment Records request made Continue Solu-Medro Xopenex/Atrovent nebs Continue supplemental oxygen Pulmonology consult. Discussed with Dr. Collado. - continue azithromycin x5 days total - continue to prednisone 40mg x3 days, then 20mg x3 days started 02/07/2022 - will discharge to pulm rehab with hypertonic saline nebs, azithromycin 250mg MWF lifelong when ready for discharge - referrals sent by CM as patient would like to not go to [facility] 02/11 stable overall continue Azithromycin, Prednisone course (2) Paroxysmal atrial fibrillation: Plan: History episode of atrial fibrillation while hospitalized receiving albuterol nebulizer treatments in 2018. Patient denies any history recurrent atrial fibrillation. Not on anticoagulation or rate control medications Current sinus rhythm (3) Body mass index (BMI) less than 16.5: Plan: BMI: 15 Patient reports 10 pound weight loss over the past month, generalized weakness.generalized weakness likely secondary to his recurrent hospitalizations and COPD exacerbations, deconditioning Dietitian consult Boost daily PT/OT eval (4) Prostate cancer: Plan: S/P prostatectomy Plan DVT ppx: Lovenox SQ Code Status: Full code Dispo: anticipate to transition to [facility] once patient makes final decision Admission and Anticipated Discharge Date Admission Date: February 04, 2022 Subjective ff up for COPD exacerbation, etc seen resting in bed, comfortable on 2 L NC states breathing is improving daily occasional dry cough no chest pain, dyspnea, palpitations, dizziness no fever/chills no other symptoms Review of Systems Review of Systems: all noted and negative except for above Physical Exam Physical Exam: General- oriented x 3, not in distress, speaks in sentences with no effort or accessory muscle use Eyes- anicteric Neck- no JVD Lungs- clear BS bilaterally, no rales/wheezes Heart- normal rate, regular rhythm; no murmurs Abdomen- normal bowel sounds, nondistended, soft, no tenderness Extremities- no pretibial edema, no calf tenderness Neuro- alert, oriented x 3; no gross focal neurologic deficits Skin- warm & dry Results & Data Results & Data ([facility]) Vital Signs (Past 12 Hours) Vital Signs Temp Pulse Pulse Resp BP Pulse Ox O2 Del Method 02/11/22 12:12 36.7 C 94 H 19 128/81 97 Nasal Cannula 02/11/22 07:45 Nasal Cannula 02/11/22 07:22 36.5 C 78 17 127/82 99 Nasal Cannula 02/11/22 05:59 76 02/11/22 03:00 36.7 C 55 L 18 106/68 98 Nasal Cannula O2 Flow Rate 02/11/22 12:12 2 02/11/22 07:45 2 02/11/22 07:22 2 02/11/22 05:59 02/11/22 03:00 2 all noted and reviewed including below
[2022-02-11] MEDS: LEVALBUTEROL HCL 1.25 MG/3 ML NEB INH PRN (13:24)
[2022-02-11] MEDS: ENOXAPARIN INJ 30 MG/0.3 ML SYR SQ SCH (20:48)
[2022-02-12] MEDS: FLUTICASONE FUROATE 100MCG 14 PUFFS/INHALER INH SCH (07:36)
[2022-02-12] MEDS: UMECLIDINIUM/VILANTEROL 62.5/25MCG 7 PUFFS/INHALER INH SCH (07:37)
[2022-02-12] MEDS: NYSTATIN SUSP 500,000 U/5 ML UDC PO SCH ×4 (07:38→20:43)
[2022-02-12] MEDS: DOCUSATE SODIUM 100 MG CAP PO SCH ×2 (07:38→20:41)
[2022-02-12] MEDS: FLUTICASONE PROPIONATE NA SPR 16 GM BTL NAE SCH (07:38)
[2022-02-12] MEDS: predniSONE 20 MG TAB PO SCH (07:39)
[2022-02-12] MEDS: guaiFENesin 600 MG TABCR PO SCH ×2 (07:39→20:42)
[2022-02-12] MEDS: clonazePAM 0.25 MG TAB PO PRN ×2 (08:26→20:52)
[2022-02-12] MEDS: ACETAMINOPHEN 325 MG TAB PO PRN (13:52)
[2022-02-12] MEDS ORDERED: ALPHA IV ONE ×2 (15:00→16:00)
[2022-02-12] MEDS ORDERED: PROTEINASE INHIBITOR IV ONE ×2 (15:00→16:00)
--- NOTE | 2022-02-12 18:03 | Hospitalist Progress Note ---
Date of Service February 12, 2022 delayed entry date of service noted above Assessment & Plan (1) COPD with acute exacerbation: Plan: per Dr. Rehman's notes with addendum: In ER afebrile, 96% on chronic 2 L oxygen via nasal cannula. ABG: pH: 7.4, PCO2: 50, PO2: 93, HCO3: 35 CXR: No acute cardiopulmonary findings. Emphysema. CTA Chest: 1. No pulmonary emboli identified. Exam mildly compromised by respiratory motion. 2. Severe emphysema. 3. A few scattered cluster tree-in-bud nodules which favor an infectious or inflammatory process. No consolidation. In ER given cefepime, vancomycin, Solu-Medrol 60 mg IV, nebulizer treatment Records request made Continue Solu-Medro Xopenex/Atrovent nebs Continue supplemental oxygen Pulmonology consult. Discussed with Dr. Collado. - continue azithromycin x5 days total - continue to prednisone 40mg x3 days, then 20mg x3 days started 02/07/2022 - will discharge to pulm rehab with hypertonic saline nebs, azithromycin 250mg MWF lifelong when ready for discharge - referrals sent by CM as patient would like to not go to [facility] 02/12 remains stable overall on 2 L NC continue Azithromycin, Prednisone course not yet ready for Rehab per patient (2) Paroxysmal atrial fibrillation: Plan: History episode of atrial fibrillation while hospitalized receiving albuterol nebulizer treatments in 2018. Patient denies any history recurrent atrial fibrillation. Not on anticoagulation or rate control medications Current sinus rhythm (3) Body mass index (BMI) less than 16.5: Plan: BMI: 15 Patient reports 10 pound weight loss over the past month, generalized weakness.generalized weakness likely secondary to his recurrent hospitalizations and COPD exacerbations, deconditioning Dietitian consult Boost daily PT/OT eval (4) Prostate cancer: Plan: S/P prostatectomy Plan DVT ppx: Lovenox SQ Code Status: Full code Dispo: anticipate to transition to [facility] once patient makes final decision Admission and Anticipated Discharge Date Admission Date: February 04, 2022 Subjective ff up for COPD exacerbation, etc seen resting in bed, sitting up on 2 l NC states breathing is ok, about the same as previous day not yet ready to go to Acute Rehab no cough, chest pain no other symptoms Review of Systems Review of Systems: all noted and negative except for above Physical Exam Physical Exam: General- oriented x 3, not in distress, speaks in sentences with no effort or accessory muscle use Eyes- anicteric Neck- no JVD Lungs- diminished but clear breath sounds bilaterally, no crackles/wheezing Heart- normal rate, regular rhythm; no murmurs Abdomen- normal bowel sounds, nondistended, soft, non tender Extremities- no pretibial edema, no calf tenderness Neuro- alert, oriented x 3; no gross focal neurologic deficits Skin- warm & dry Results & Data Results & Data ([facility]) Vital Signs (Past 12 Hours) Vital Signs Temp Pulse Pulse Resp BP BP Pulse Ox 02/12/22 17:45 18 135/82 98 02/12/22 17:29 36.6 C 80 18 151/79 H 99 02/12/22 16:48 36.5 C 73 18 151/79 H 100 02/12/22 16:22 36.6 C 70 20 126/82 100 02/12/22 16:01 96 H 02/12/22 15:23 36.6 C 74 18 144/84 H 98 02/12/22 14:56 87 02/12/22 12:09 36.4 C 87 20 136/74 96 02/12/22 09:00 02/12/22 08:22 36.8 C 74 17 117/78 98 02/12/22 07:02 66 O2 Del Method O2 Flow Rate 02/12/22 17:45 Nasal Cannula 1.5 02/12/22 17:29 Nasal Cannula 1.5 02/12/22 16:48 Nasal Cannula 1.5 02/12/22 16:22 Nasal Cannula 1.5 02/12/22 16:01 02/12/22 15:23 Nasal Cannula 1.5 02/12/22 14:56 02/12/22 12:09 Nasal Cannula 2 02/12/22 09:00 Nasal Cannula 2.5 02/12/22 08:22 Nasal Cannula 2.5 02/12/22 07:02 all noted and reviewed including below
[2022-02-12] MEDS: ENOXAPARIN INJ 30 MG/0.3 ML SYR SQ SCH (20:41)
[2022-02-13] MEDS: FLUTICASONE PROPIONATE NA SPR 16 GM BTL NAE SCH (08:09)
[2022-02-13] MEDS: UMECLIDINIUM/VILANTEROL 62.5/25MCG 7 PUFFS/INHALER INH SCH (08:09)
[2022-02-13] MEDS: FLUTICASONE FUROATE 100MCG 14 PUFFS/INHALER INH SCH (08:09)
[2022-02-13] MEDS: NYSTATIN SUSP 500,000 U/5 ML UDC PO SCH ×4 (08:10→20:59)
[2022-02-13] MEDS: guaiFENesin 600 MG TABCR PO SCH ×2 (08:10→20:59)
[2022-02-13] MEDS: DOCUSATE SODIUM 100 MG CAP PO SCH ×2 (08:11→20:58)
[2022-02-13] MEDS ORDERED: predniSONE 10 MG TABLET PO SCH (09:00)
--- NOTE | 2022-02-13 11:06 | XRay Report ---
XR chest 1V portable CLINICAL HISTORY: ff up pneumonia TECHNIQUE: Single frontal radiograph of the chest was obtained. Comparison: None available at the time of this dictation. FINDINGS: No lines and tubes are seen. The cardiomediastinal silhouette is normal. The lungs are clear. No evid ence of pleural effusion or pneumothorax. IMPRESSION: No acute abnormality and in particular no evidence of pneumonia. ACT 112: Negative or not required by law. Electronically signed by: Gerald Delvalle M.D. 02/13/2022 11:05 AM
[2022-02-13] MEDS: ACETAMINOPHEN 325 MG TAB PO PRN (13:10)
--- NOTE | 2022-02-13 17:09 | Hospitalist Progress Note ---
Date of Service February 13, 2022 Assessment & Plan (1) COPD with acute exacerbation: Plan: per Dr. Rehman's notes with addendum: In ER afebrile, 96% on chronic 2 L oxygen via nasal cannula. ABG: pH: 7.4, PCO2: 50, PO2: 93, HCO3: 35 CXR: No acute cardiopulmonary findings. Emphysema. CTA Chest: 1. No pulmonary emboli identified. Exam mildly compromised by respiratory motion. 2. Severe emphysema. 3. A few scattered cluster tree-in-bud nodules which favor an infectious or inflammatory process. No consolidation. In ER given cefepime, vancomycin, Solu-Medrol 60 mg IV, nebulizer treatment Records request made Continue Solu-Medro Xopenex/Atrovent nebs Continue supplemental oxygen Pulmonology consult. Discussed with Dr. Collado. - continue azithromycin x5 days total - continue to prednisone 40mg x3 days, then 20mg x3 days started 02/07/2022 - will discharge to pulm rehab with hypertonic saline nebs, azithromycin 250mg MWF lifelong when ready for discharge - referrals sent by CM as patient would like to not go to [facility] 02/13 Patient finished azithromycin course Currently on prednisone taper at 10 mg daily Reports increased dyspnea today Repeat chest x-ray: No signs of pneumonia or pleural effusion Remains at 1.5 L nasal cannula Dry Clipper Tender requested to reevaluate the patient (2) Paroxysmal atrial fibrillation: Plan: History episode of atrial fibrillation while hospitalized receiving albuterol nebulizer treatments in 2018. Patient denies any history recurrent atrial fibrillation. Not on anticoagulation or rate control medications Current sinus rhythm (3) Body mass index (BMI) less than 16.5: Plan: BMI: 15 Patient reports 10 pound weight loss over the past month, generalized weakness.generalized weakness likely secondary to his recurrent hospitalizations and COPD exacerbations, deconditioning Dietitian consult Boost daily PT/OT eval (4) Prostate cancer: Plan: S/P prostatectomy Plan DVT ppx: Lovenox SQ Code Status: Full code Dispo: anticipate to transition to [facility] once medically stable, cleared by pulmonary service Admission and Anticipated Discharge Date Admission Date: February 04, 2022 Subjective Follow-up for COPD exacerbation, etc. Seen resting, in bed, sitting up, on 1.5 L of oxygen via nasal cannula States he feels somewhat dyspneic today But denies cough, chest pain, fevers or chills No sputum production No other symptoms Review of Systems Review of Systems: all noted and negative except for above Physical Exam Physical Exam: General- oriented x 3, not in distress, speaks in sentences with no effort or accessory muscle use Eyes- anicteric Neck- no JVD Lungs-diminished but clear breath sounds bilaterally, no rales/wheezes Heart- normal rate, regular rhythm; no murmurs Abdomen- normal bowel sounds, nondistended, soft, nontender Extremities- no pretibial edema, no calf tenderness Neuro- alert, oriented x 3; no gross focal neurologic deficits Skin- warm & dry Results & Data Results & Data ([facility]) Vital Signs (Past 12 Hours) Vital Signs Temp Pulse Pulse Resp BP Pulse Ox O2 Del Method 02/13/22 15:34 36.9 C 80 20 130/87 98 Nasal Cannula 02/13/22 15:23 102 H 02/13/22 11:23 36.6 C 84 19 122/83 95 Nasal Cannula 02/13/22 10:24 Nasal Cannula 02/13/22 07:50 36.5 C 84 19 137/82 97 Nasal Cannula 02/13/22 07:10 65 O2 Flow Rate 02/13/22 15:34 2 02/13/22 15:23 02/13/22 11:23 1.5 02/13/22 10:24 1.5 02/13/22 07:50 1.5 02/13/22 07:10 all noted and reviewed including below
--- NOTE | 2022-02-13 18:13 | Pulmonary Consultation ---
Date of Consultation February 13, 2022 Assessment & Plan (1) End stage COPD: He has end-stage COPD which is essentially refractory to current therapy. -Prednisone to 40 mg a day and recommend tapering by 5 mg every 3 days. -Start azithromycin at a dose of 250 mg every Wednesday, Wednesday and Wednesday. We will start the patient on daily dosing while in the hospital. -Clinically poor candidate for Roflumilast given his history of atrial fibrillation -Patient with very poor inspiratory effort and inhalers may not be as effective in his case. We will transition him from inhalers to nebulized budesonide twice daily and formoterol twice daily. Continue with short acting beta agonist in between therapy. -Consult palliative care due to essentially end-stage disease and discussion of goals of care. -Continue Prolastin C therapy. -No role for bronchoscopic lung volume reduction. Patient has orellana lobar emph ysema volume reduction is likely of minimal benefit. -Patient is probably a poor lung transplant candidate given his low BMI. He would need to undergo pulmonary rehab and gain weight prior to lung tr ansplantation. He should continue to follow-up with outpatient lung transplant, however. -I doubt that he is physically capable of even undergoing pulmonary rehab at this time and will probably need an acute inpatient rehab stay at minimum. Patient with evidence of chronic hypercapnic respiratory failure on ABG from 02/04/2022. We will start the patient empirically on AVAPS. Due to chronic hypercapnic respiratory failure consequent to COPD, the patient now requires a noninvasive home ventilator. Bilevel therapy with and without a rate would be ineffective as patient requires a volume targeted mode. Ventilation is required to decrease work of breathing and improve pulmonary status. Interruption of ventilator support would lead to decline of health status. NIMV settings should be AVAPS-AE; Breath rate: auto; Inspiratory time: auto; Sigh: off; Tidal Volume: [350-450], PS min: [4-10 PS max: 12-20]; EPAP min: [6- 10]; EPAP max: [10-16]; AVAPS rate: [14 during sleep and as needed] (2) Chronic hypoxemic respiratory failure: Maintain oxygen saturations 88 to 92%. (3) Pulmonary cachexia due to chronic obstructive pulmonary disease: Dietitian consultation. Consider PEG tube placement if the patient is serious about pursuing lung transplantation. Plan Thank you for the consult. Please call questions. History of Present Illness Reason for Consultation: COPD Attending Physician: West Goldsmith MD History of Present Illness 61-year-old male with essentially end-stage COPD and history of prostate cancer with frequent hospital readmissions currently hospitalized due to severe shortness of breath. Pulmonary is consulted to assist in management of his chronic issues. Patient notes that he follows with Dr. Lake as an outpatient who has performed several attempts of bronchoscopic lung volume reduction which has unfortunately failed due to recurrent infections or worsening symptoms. He notes that he has chronic breathlessness with minimal activity. He is currently short of breath with speaking short sentences. He has underlying anxiety. He denies any chest pain at present. He is currently on 10 mg of prednisone, and Anoro Ellipta and as needed Xopenex. He notes that he was contacted in the lung transplant center at [facility], but has not been formally evaluated by them. He had a chest CTA 02/04 which revealed severe orellana lobar emphysema. He reportedly has a history of alpha-1 antitrypsin deficiency and is on Prolastin therapy. I do not have outside records and PFTs or other studies. Allergies Allergy/AdvReac Type Severity Reaction Status Date / Time albuterol Allergy Unknown Verified 02/04/22 16:45 fluticasone furoate Allergy Unknown Verified 02/04/22 16:45 [From Trelegy Ellipta] meloxicam Allergy Unknown Verified 02/04/22 16:45 umeclidinium Allergy Unknown Verified 02/04/22 16:45 [From Trelegy Ellipta] vilanterol Allergy Unknown Verified 02/04/22 16:45 [From Trelegy Ellipta] Home Medications Medication Instructions Recorded Confirmed Type acetaminophen 325 mg tablet 650 mg PO Q4 PRN Pain 02/04/22 02/04/22 History alpha-1 proteinase inhib.(hum) 20 mg IV WK 02/04/22 02/04/22 History 1,000 mg (+/-)/20 mL IV solution (Prolastin-C) benzonatate 100 mg capsule 100 mg PO TID PRN Cough 02/04/22 02/04/22 History clonazepam 0.25 mg disintegrating 0.25 mg PO BID PRN Anxiety 02/04/22 02/04/22 History tablet docusate sodium 100 mg capsule 100 mg PO BID 02/04/22 02/04/22 History fluticasone fur. 100 mcg-umeclid 1 ea inhalation .HOLD 02/04/22 02/04/22 History 62.5 mcg-vilant 25 mcg inhalat.powder (Trelegy Ellipta) guaifenesin 100 mg/5 mL oral liquid 100 mg PO QID PRN Cough 02/04/22 02/04/22 History levalbuterol tartrate 45 2 puff inhalation Q4 PRN Wheezing 02/04/22 02/04/22 History mcg/actuation aerosol inhaler ondansetron 4 mg disintegrating 4 mg PO Q4 PRN nausea or vomiting 02/04/22 02/04/22 History tablet polyethylene glycol 3350 17 gram 17 g PO QDL PRN Constipation 02/04/22 02/04/22 History oral powder packet (Miralax) prednisone 10 mg tablet 10 mg PO UD 02/04/22 02/04/22 History sennosides 8.6 mg tablet (Senokot) 8.6 mg PO QDL PRN Constipation 02/04/22 02/04/22 History Patient History Medical History (Updated 02/13/22 @ 18:06 by Kp Sanchez MD) Btesv-4-[id number] deficiency Chronic hypoxemic respiratory failure COPD (chronic obstructive pulmonary disease) End stage COPD History of tobacco use Paroxysmal atrial fibrillation Prostate cancer (10/06/16) "Rising PSA, pretreatment PSA 4.510 Status post ultrasound-guided biopsies October 06, 2016 Adenocarcinoma the prostate Marguerite 3+3, 3+4, and 4+3 Status post robotic assisted laparoscopic radical prostatectomy February 23, 2017 [place] 3+4, perineural invasion, seminal vesicle invasion, positive margins Stage pT3b pN0 Post prostatectomy rising PSA to 0.165 July 06, 2017" Pulmonary cachexia due to chronic obstructive pulmonary disease Surgical History (Updated 02/04/22 @ 16:52 by Roselyn Jaramillo PA-C) H/O prostatectomy 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 Dr Bennett. PH [place] Family History (Updated 02/04/22 @ 16:52 by Roselyn Jaramillo PA-C) Other Colorectal cancer Heart disease Social History (Updated 02/04/22 @ 16:52 by Roselyn Jaramillo PA-C) Smoking Status: Former smoker Smoking End Date: 2017; Second Hand Exposure: No; Tobacco Cessation Education Requested by Patient: No Hx Alcohol Use: Yes Alcohol type: beer Hx Substance Use: No Preferred Language: Maltese Communication Ability: Effective Senior Systems Programmer Required: No Beliefs That Will Affect Care: Spiritual Current Living Situation: Alone Other Information That Helps Us Care for You: No Feels Safe at Home: Yes Safety Concerns: Feels Safe At This Time Assistive Devices: Oxygen - Continuous Review of Systems Review of Systems: All systems reviewed & are unremarkable except as noted in HPI & below Physical Exam Physical Exam: Constitutional: Severely cachectic male who appears to be in distress with talking. Eyes: Pupils are equal round and reactive to light. Conjunctivae are normal. Anicteric sclera. Ears nose, mouth and throat: Deferred. Neck: Trachea is midline. Visual inspection is normal. Respiratory: Minimal air movement. No wheezes. Cardiovascular: Regular rate and rhythm. No murmurs. No edema. Gastrointestinal: Normal bowel sounds, soft, nontender and nondistended. No he patosplenomegaly noted. Musculoskeletal: No cyanosis. Patient is able to move all extremities. Skin: No rashes, warm dry and intact. Neurologic: No obvious focal neurological deficits seen. Psychiatric: Alert and oriented x3 with a euthymic affect. Results & Data Results & Data ([facility]) Vital Signs (Past 12 Hours) Vital Signs Temp Pulse Pulse Resp BP Pulse Ox O2 Del Method 02/13/22 15:34 36.9 C 80 20 130/87 98 Nasal Cannula 02/13/22 15:23 102 H 02/13/22 11:23 36.6 C 84 19 122/83 95 Nasal Cannula 02/13/22 10:24 Nasal Cannula 02/13/22 07:50 36.5 C 84 19 137/82 97 Nasal Cannula 02/13/22 07:10 65 O2 Flow Rate 02/13/22 15:34 2 02/13/22 15:23 02/13/22 11:23 1.5 02/13/22 10:24 1.5 02/13/22 07:50 1.5 02/13/22 07:10 PG Care Time/CCT Total # of Minutes Spent Total Time Spent with Patient: Total time spent is greater than 50% in coordination of care (as documented) at patient's floor/unit and/or counseling patient: Coding Level of Care Code 47780 Inpt Consult Level 5 Diagnoses End stage COPD J44.9 Chronic hypoxemic respiratory failure J96.11 Pulmonary cachexia due to chronic obstructive pulmonary disease J44.9; R64
[2022-02-13] MEDS: AZITHROMYCIN 250 MG TAB PO ONE ×3 (19:23→19:35)
[2022-02-13] MEDS: FORMOTEROL 20 MCG/2 ML VIAL NEB SCH (20:08)
[2022-02-13] MEDS: BUDESONIDE 0.5 MG/2 ML VIAL (PULMICORT) NEB SCH (20:08)
[2022-02-13] MEDS: clonazePAM 0.25 MG TAB PO PRN (20:56)
[2022-02-13] MEDS: ENOXAPARIN INJ 30 MG/0.3 ML SYR SQ SCH (20:58)
[2022-02-13] MEDS: predniSONE 20 MG TAB PO SCH (21:00)
[2022-02-14] MEDS: BUDESONIDE 0.5 MG/2 ML VIAL (PULMICORT) NEB SCH ×2 (07:35→17:50)
[2022-02-14] MEDS: FORMOTEROL 20 MCG/2 ML VIAL NEB SCH ×2 (07:36→17:50)
[2022-02-14] MEDS: FLUTICASONE FUROATE 100MCG 14 PUFFS/INHALER INH SCH (08:00)
[2022-02-14] MEDS: predniSONE 20 MG TAB PO SCH (08:00)
[2022-02-14] MEDS: guaiFENesin 600 MG TABCR PO SCH ×2 (08:01→20:47)
[2022-02-14] MEDS: FLUTICASONE PROPIONATE NA SPR 16 GM BTL NAE SCH (08:02)
[2022-02-14] MEDS: DOCUSATE SODIUM 100 MG CAP PO SCH ×2 (08:02→20:40)
[2022-02-14] MEDS: NYSTATIN SUSP 500,000 U/5 ML UDC PO SCH ×2 (08:03→12:20)
[2022-02-14] MEDS: AZITHROMYCIN 250 MG TAB PO SCH (08:03)
[2022-02-14] MEDS: ACETAMINOPHEN 325 MG TAB PO PRN (10:13)
[2022-02-14] MEDS: LEVALBUTEROL HCL 1.25 MG/3 ML NEB INH PRN (10:36)
--- NOTE | 2022-02-14 14:18 | Hospitalist Progress Note ---
Date of Service February 14, 2022 Assessment & Plan (1) COPD with acute exacerbation: Plan: (1) COPD with acute exacerbation: Plan: per Dr. Rehman's notes with addendum: In ER afebrile, 96% on chronic 2 L oxygen via nasal cannula. ABG: pH: 7.4, PCO2: 50, PO2: 93, HCO3: 35 CXR: No acute cardiopulmonary findings. Emphysema. CTA Chest: 1. No pulmonary emboli identified. Exam mildly compromised by respiratory motion. 2. Severe emphysema. 3. A few scattered cluster tree-in-bud nodules which favor an infectious or inflammatory process. No consolidation. In ER given cefepime, vancomycin, Solu-Medrol 60 mg IV, nebulizer treatment Records request made Continue Solu-Medro Xopenex/Atrovent nebs Continue supplemental oxygen Pulmonology consult. Discussed with Dr. Collado. - continue azithromycin x5 days total - continue to prednisone 40mg x3 days, then 20mg x3 days started 02/07/2022 - will discharge to pulm rehab with hypertonic saline nebs, azithromycin 250mg MWF lifelong when ready for discharge - referrals sent by CM as patient would like to not go to [facility] 02/13 Patient finished azithromycin course Currently on prednisone taper at 10 mg daily Reports increased dyspnea today Repeat chest x-ray: No signs of pneumonia or pleural effusion Remains at 1.5 L nasal cannula Algology Teacher requested to reevaluate the patient 02/14 Algology Teacher reevaluated patient, recommendations noted Patient started on: Perforomist, budesonide Prednisone increased to 40 mg p.o. daily, taper by 5 mg every 3 days Azithromycin daily Gabapentin nightly Monitor closely (2) Paroxysmal atrial fibrillation: Plan: History episode of atrial fibrillation while hospitalized receiving albuterol nebulizer treatments in 2018. Patient denies any history recurrent atrial fibrillation. Not on anticoagulation or rate control medications Current sinus rhythm (3) Body mass index (BMI) less than 16.5: Plan: BMI: 15 Patient reports 10 pound weight loss over the past month, generalized weakness.generalized weakness likely secondary to his recurrent hospitalizations and COPD exacerbations, deconditioning Dietitian consult Boost daily PT/OT eval (4) Prostate cancer: Plan: S/P prostatectomy Plan DVT ppx: Lovenox SQ Code Status: Full code Dispo: anticipate to transition to [facility] once medically stable, cleared by pulmonary service (2) Paroxysmal atrial fibrillation: Plan: History episode of atrial fibrillation while hospitalized receiving albuterol nebulizer treatments in 2018. Patient denies any history recurrent atrial fibrillation. Not on anticoagulation or rate control medications Current sinus rhythm (3) Body mass index (BMI) less than 16.5: Plan: BMI: 15 Patient reports 10 pound weight loss over the past month, generalized weakness.generalized weakness likely secondary to his recurrent hospitalizations and COPD exacerbations, deconditioning Dietitian consult Boost daily PT/OT eval (4) Prostate cancer: Plan: S/P prostatectomy Plan DVT ppx: Lovenox SQ Code Status: Full code Dispo: anticipate to transition to [facility] once patient makes final decision Admission and Anticipated Discharge Date Admission Date: February 04, 2022 Subjective Follow-up for COPD exacerbation, alpha-1 antitrypsin deficiency, etc. Seen resting in bed, on 2 L of oxygen via nasal cannula, not in distress, States he feels improved compared to yesterday Breathing is improving No chest pain, cough, fevers or chills No other symptoms Review of Systems Review of Systems: all noted and negative except for above Physical Exam Physical Exam: General- oriented x 3, not in distress, speaks in sentences with no effort or accessory muscle use Eyes- anicteric Neck- no JVD Lungs- clear BS bilaterally, no rales/wheezes Heart- normal rate, regular rhythm; no murmurs Abdomen- normal bowel sounds, nondistended, soft, nontender Extremities- no pretibial edema, no calf tenderness Neuro- alert, oriented x 3; no gross focal neurologic deficits Skin- warm & dry Results & Data Results & Data ([facility]) Vital Signs (Past 12 Hours) Vital Signs Temp Pulse Pulse Resp BP Pulse Ox O2 Del Method 02/14/22 11:31 36.5 C 94 H 19 150/85 H 94 Nasal Cannula 02/14/22 10:36 88 18 98 Nasal Cannula 02/14/22 07:28 36.6 C 80 18 130/81 98 Nasal Cannula 02/14/22 07:24 Nasal Cannula 02/14/22 07:04 73 02/14/22 03:10 36.4 C L 68 18 110/66 99 Nasal Cannula O2 Flow Rate 02/14/22 11:31 2 02/14/22 10:36 2 02/14/22 07:28 2 02/14/22 07:24 2 02/14/22 07:04 02/14/22 03:10 2 all noted and reviewed including below
[2022-02-14] MEDS: clonazePAM 0.25 MG TAB PO PRN (20:46)
[2022-02-14] MEDS: ENOXAPARIN INJ 30 MG/0.3 ML SYR SQ SCH (20:47)
[2022-02-15] MEDS: guaiFENesin 600 MG TABCR PO SCH ×2 (07:11→20:19)
[2022-02-15] MEDS: FLUTICASONE FUROATE 100MCG 14 PUFFS/INHALER INH SCH (07:11)
[2022-02-15] MEDS: FLUTICASONE PROPIONATE NA SPR 16 GM BTL NAE SCH (07:12)
[2022-02-15] MEDS: DOCUSATE SODIUM 100 MG CAP PO SCH ×2 (07:12→22:12)
[2022-02-15] MEDS: predniSONE 20 MG TAB PO SCH (07:12)
[2022-02-15] MEDS: AZITHROMYCIN 250 MG TAB PO SCH (07:13)
[2022-02-15] MEDS: BUDESONIDE 0.5 MG/2 ML VIAL (PULMICORT) NEB SCH (07:25)
[2022-02-15] MEDS: FORMOTEROL 20 MCG/2 ML VIAL NEB SCH (07:25)
[2022-02-15] MEDS: UMECLIDINIUM BROMIDE 62.5MCG/BLISTER 7 PUFFS/INHALER INH SCH (12:02)
[2022-02-15] MEDS: FLUTICASONE/VILANTEROL 200/25MCG 14 PUFFS/INHALER INH SCH (12:02)
--- NOTE | 2022-02-15 15:29 | Hospitalist Progress Note ---
Date of Service February 15, 2022 Assessment & Plan (1) COPD with acute exacerbation: Plan: (1) COPD with acute exacerbation: Plan: per Dr. Rehman's notes with addendum: In ER afebrile, 96% on chronic 2 L oxygen via nasal cannula. ABG: pH: 7.4, PCO2: 50, PO2: 93, HCO3: 35 CXR: No acute cardiopulmonary findings. Emphysema. CTA Chest: 1. No pulmonary emboli identified. Exam mildly compromised by respiratory motion. 2. Severe emphysema. 3. A few scattered cluster tree-in-bud nodules which favor an infectious or inflammatory process. No consolidation. In ER given cefepime, vancomycin, Solu-Medrol 60 mg IV, nebulizer treatment Records request made Continue Solu-Medro Xopenex/Atrovent nebs Continue supplemental oxygen Pulmonology consult. Discussed with Dr. Collado. - continue azithromycin x5 days total - continue to prednisone 40mg x3 days, then 20mg x3 days started 02/07/2022 - will discharge to pulm rehab with hypertonic saline nebs, azithromycin 250mg MWF lifelong when ready for discharge - referrals sent by as patient would like to not go to [facility] 02/13 Patient finished azithromycin course Currently on prednisone taper at 10 mg daily Reports increased dyspnea today Repeat chest x-ray: No signs of pneumonia or pleural effusion Remains at 1.5 L nasal cannula Petroleum Refinery Operator requested to reevaluate the patient 02/14 Petroleum Refinery Operator reevaluated patient, recommendations noted Patient started on: Perforomist, budesonide Prednisone increased to 40 mg p.o. daily, taper by 5 mg every 3 days Azithromycin daily Gabapentin nightly Monitor closely 02/15 Remains on 2 L of nasal cannula Has dyspnea on minimal exertion Continue new regimen Monitor closely Patient requested to discuss case with his Petroleum Refinery Operator tomorrow (2) Paroxysmal atrial fibrillation: Plan: History episode of atrial fibrillation while hospitalized receiving albuterol nebulizer treatments in 2018. Patient denies any history recurrent atrial fibrillation. Not on anticoagulation or rate control medications Current sinus rhythm (3) Body mass index (BMI) less than 16.5: Plan: BMI: 15 Patient reports 10 pound weight loss over the past month, generalized weakness.generalized weakness likely secondary to his recurrent hospitalizations and COPD exacerbations, deconditioning Dietitian consult Boost daily PT/OT eval (4) Prostate cancer: Plan: S/P prostatectomy Plan DVT ppx: Lovenox SQ Code Status: Full code Dispo: anticipate to transition to [facility] once medically stable, cleared by pulmonary service Plan DVT ppx: Lovenox SQ Code Status: Full code Dispo: pending Admission and Anticipated Discharge Date Admission Date: February 04, 2022 Subjective Follow-up for COPD exacerbation, etc. Seen resting in bed, comfortable, not in distress States he has dyspnea with minimal exertion No cough, fevers or chills, chest pain No other symptoms Review of Systems Review of Systems: all noted and negative except for above Physical Exam Physical Exam: General- oriented x 3, not in distress, speaks in sentences with no effort or accessory muscle use Eyes- anicteric Neck- no JVD Lungs-somewhat diminished but clear breath sounds bilaterally, no crackles or wh eezing Heart- normal rate, regular rhythm; no murmurs Abdomen- normal bowel sounds, nondistended, soft, nontender Extremities- no pretibial edema, no calf tenderness Neuro- alert, oriented x 3; no gross focal neurologic deficits Skin- warm & dry Results & Data Results & Data ([facility]) Vital Signs (Past 12 Hours) Vital Signs Temp Pulse Pulse Resp BP Pulse Ox O2 Del Method 02/15/22 11:44 36.6 C 102 H 20 150/90 H 97 Nasal Cannula 02/15/22 08:30 Nasal Cannula 02/15/22 08:07 36.6 C 92 H 18 136/87 97 Nasal Cannula 02/15/22 07:20 61 O2 Flow Rate 02/15/22 11:44 2 02/15/22 08:30 2 02/15/22 08:07 2 02/15/22 07:20 all noted and reviewed including below
[2022-02-15] MEDS: LEVALBUTEROL HCL 1.25 MG/3 ML NEB INH PRN (19:20)
[2022-02-15] MEDS: ENOXAPARIN INJ 30 MG/0.3 ML SYR SQ SCH (20:17)
[2022-02-15] MEDS: clonazePAM 0.25 MG TAB PO PRN (20:29)
[2022-02-16] MEDS: AZITHROMYCIN 250 MG TAB PO SCH (07:22)
[2022-02-16] MEDS: guaiFENesin 600 MG TABCR PO SCH ×2 (07:23→20:07)
[2022-02-16] MEDS: UMECLIDINIUM BROMIDE 62.5MCG/BLISTER 7 PUFFS/INHALER INH SCH (07:23)
[2022-02-16] MEDS: DOCUSATE SODIUM 100 MG CAP PO SCH ×2 (07:23→20:06)
[2022-02-16] MEDS: FLUTICASONE PROPIONATE NA SPR 16 GM BTL NAE SCH (07:23)
[2022-02-16] MEDS: predniSONE 20 MG TAB PO SCH (07:23)
[2022-02-16] MEDS: FLUTICASONE/VILANTEROL 200/25MCG 14 PUFFS/INHALER INH SCH (07:24)
--- NOTE | 2022-02-16 09:04 | Pulmonology Progress Note ---
Date of Service February 16, 2022 Assessment & Plan (1) COPD with acute exacerbation: (2) Kdsyh-2-etfeddnlruf deficiency: (3) History of tobacco use: (4) Acute dyspnea: (5) Mucus plugging of bronchi: (6) Acute respiratory failure with hypoxia: Plan CT chest 02/04/2022 personally reviewed: Centrilobular emphysema appreciated bilaterally in the upper lobes, panlobular emphysema appreciated bilateral lower lobes Tree-in-bud opacities appreciated bilaterally on the periphery, left lower lobe 5 mm pulmonary nodule Endobronchial valve appreciated likely an RB 6 as well as possibly medial basal No significant mediastinal lymphadenopathy ABG 02/04/2022: 7.45/50/93 --Acute on chronic hypoxic respiratory failure Likely secondary to COPD exacerbation Patient did have 3 endobronchial valve placement in April 2020 as well as removal of 1 valve [address] Bennett, patient has total of 2 valves right now in the right lower lobe COVID-19 PCR, influenza A/B, RSV negative Respiratory bio fire negative Try to keep O2 saturation between 88-92% -- COPD with emphysema, chronic hypoxic respiratory failure Severe On low-dose trilogy at home Patient will benefit from azithromycin 250 mg Nakykh-Mebrfxemy-Azvfuq, QTC 421 on 02/05/2022 Will benefit from pulmonary rehab as an outpatient -- History of alpha-1 antitrypsin deficiency On Prolastin C weekly --Left lower lobe pulmonary nodule 5 mm Unchanged 2017 Does not need to be followed up -- Ex-smoker Quit in 2018 Plan: Try to keep oxygen saturation between 88-92% Change azithromycin to 250 mg Ucgvfv-Iysxnaojn-Tatnyk Continue with prednisone 40 mg for 2 more days and then go down to 20 mg. I do think anxiety is also playing a role in patient's symptom on top of his underlying COPD Case was discussed with Dr. Goldsmith Please note the above document was generated using voice recognition software. It may contain grammatical, syntax or spelling errors.Any formal questions or concerns about the content, text or information contained within the body of this dictation should be directly addressed to the provider for clarification. Admission and Anticipated Discharge Date Admission Date: February 04, 2022 Subjective Patient seen and examined at bedside. No acute distress, no adverse events overnight He was saturating 99% at the time of examination on 1 and half liters. I went down to half a liter. Overall he stated he is feeling better. He continues to repeat that he needs valve to be placed again as that is the only thing that benefited him last time. Is shortness of breath has improved. Is bringing up clear phlegm now. Denies any chest congestion No nausea vomiting, fair appetite Review of Systems Review of Systems: All systems reviewed & are unremarkable except as noted in Subjective Physical Exam Physical Exam: Constitutional: No acute distress, frail-appearing HEENT: EOMI, PERRLA Respiratory system: Decreased air entry bilaterally, no wheeze, no rhonchi, no crackles CVS: S1-S2 positive, no murmurs or gallops Abdomen: Soft, nontender, nondistended, positive bowel sounds x4 Extremities: +2 pulses bilaterally radialis/ dorsalis pedis, no cyanosis, no edema Neuro: Awake alert oriented x3 Psych: Normal mood and affect G/U: No Lubin Skin: no rashes, warm and dry Lymphatic: no cervical or axillary lymphadenopathy Results & Data Results & Data ([facility]) Vital Signs (Past 12 Hours) Vital Signs Temp Pulse Pulse Resp BP Pulse Ox O2 Del Method 02/16/22 08:12 36.5 C 100 H 19 108/70 96 Nasal Cannula 02/16/22 08:05 Nasal Cannula 02/16/22 07:00 77 02/16/22 06:04 69 02/15/22 22:48 36.6 C 81 18 106/74 98 Nasal Cannula O2 Flow Rate 02/16/22 08:12 1.5 02/16/22 08:05 2 02/16/22 07:00 02/16/22 06:04 02/15/22 22:48 1.5 Laboratory Results 02/09/22 05:53 02/09/22 05:53 PG Care Time/CCT Total # of Minutes Spent Total Time Spent with Patient: Total time spent is greater than 50% in coordination of care (as documented) at patient's floor/unit and/or counseling patient: Coding Level of Care Code 40816 Subseq Hosp Care Lvl 3 Diagnoses COPD with acute exacerbation J44.1 Njqtm-9-pawdwsdvohb deficiency E88.01 History of tobacco use Z87.891 Acute dyspnea R06.00 Mucus plugging of bronchi T17.500A Acute respiratory failure with hypoxia J96.01
--- NOTE | 2022-02-16 09:26 | Palliative Care Consultation ---
Date of Consultation February 16, 2022 Assessment & Plan (1) Palliative care encounter: Met with pt/family. Provided overview of Palliative Medicine, a subspecialty that provides specialized medical care for people living with a serious illness by offering a focus on quality of life. Palliative Medicine is often conflated with hospice: I advised patient/family that Palliative and hospice can be partners but we are not the same. It is important to understand the difference so that we may be informed, and not afraid. Palliative Medicine works to improve QOL through reduction of symptom burden/more control over their illness, for both the patient and family. Palliative medicine clinicians are board certified, specially-trained and another member of the patient's medical care team. We often provide an extra layer of support because our care is based on the needs of the patient, not the prognosis; as such, it's appropriate at any age/advancing stage of a serious illness and can be provided along with curative treatment. Palliative Medicine clinicians are also trained in advanced communication methodologies, to facilitate complex discussions about advanced illness planning, which are needed to help assure that the treatment choices match the patient's goals, aka delivering Goal Concordant care. Finally, we discussed that hospice is a visiting nurse service that focuses on care delivered at the very end of life for patients with terminal illness, with life expectancy less than 6 month. (2) Advanced care planning/counseling discussion: 45 min GOC discussion: I had a very lengthy and complex discussion with patient about goals of care and his overall understanding of advanced COPD, alpha-1 antitrypsin disease, and the desire to pursue lung transplant evaluation. Jax states that his overall goal is to have a lung transplant. He was referred to [facility] lung transplant program and has had 2 telephone conversations with a wireless sales representative from their program, he is unsure of their role but I suspect from how he is describing the conversations that this was a leather splitter or a triage nurse because what he provided to them mostly has been demographic information as well as some background information. He has not had a physical appointment at [facility] nor has he been seen by anyone on the transplant team. He has never been evaluated for lung transplant/never had appt at [facility] Lung txp yet. He understands that he needs a transplant in order to extend his life. He has however quite focused on having another endobronchial valve placed because he feels the complications he had from a prior one which required its removal is contributing to his current worsening. He describes a significant and strong trust in his outside provider who has been placing the endobronchial else. He repeatedly told me through our discussion that he wants to get well enough to leave the hospital and follow-up with his outside provider for another endobronchial valve and then talk to them about a transplant appointment. He has not returned calls from the lung transplant program at [facility] when they try to schedule appointments noting that he was other in the hospital or he wanted to speak to his other provider first. I advised the patient that it would be worthwhile to get his appointment with [facility] lung transplant for an initial consult scheduled as that appointment will likely be booked out in a 4 to 6-week pattern. It is unlikely they would offer him an appointment in the next 1 week. I told him it is better to have an appointment scheduled in waiting and if he needs to cancel it closer to the day because he is hospitalized or has another complication, and that could be easily done versus calling for an appointment when urgently needed but being told wait times were prohibitive. We also discussed his alpha-1 antitrypsin deficiency. He shared a lengthy perspective about feeling that his alpha-1 antitrypsin deficiency is "not being properly managed because nobody is looking into his liver," which he knows from his Internet research is a common site for alpha-1 antitrypsin deficiency and "why isn't that being addressed?" He also shares his frustrations about being diagno sed with alpha-1 antitrypsin deficiency 8 years ago but Prolastin was denied - "the insurance refused to cover it." He states that it was not until 2018 when another provider during one of his hospital admissions pursued getting authorization for him and the medication was approved. He states, "the insurance company just kept refusing it because it is expensive and they did not want a pay for it." He states he is due for a Prolastin infusion on Wednesday but has been unable to coordinate the delivery of same to his apartment because no one is there to sign for it. I advised him I would pass this along to Dr. Collado and pulmonary medicine to see if we can arrange for him to have that dose of Prolastin administered here in the hospital while he is still admitted. I asked him if he wanted to go back to rehab at [facility]. He states that he would like to but he does not believe he is well enough to go yet. I asked him to further explain that and he said he needs to be stronger to be able to go to rehab. I asked him if he felt that he needed to go home instead of rehab and he felt that that would be the next reasonable step so that he could "recover and get strong enough and I can go to rehab." I advised him that there was more likelihood of have improving strength and conditioning if he were to go from the hospital to rehab versus from the hospital to home and then back to rehab which at that point may not be covered. I also advised him he would need to be reevaluated by physical therapy this admission to determine if he qualifies for rehab which would likely need to be precertified prior to discharge. Throughout the discussion, patient exhibited a lot of wishful thinking, tangential thoughts and a general reluctance to answer most questions directly about the nature of his disease, his understanding of his prognosis, and the implications of delaying a transplant evaluation. He very consistently returns to comments and long-winded explanations about his need for another endobronchial health, the infection he sustained from the placement of the prior 1 and what he perceives as missed treatment with multiple antibiotics which led to a prolonged infection, more debility and more decline from the outside hospitals. I have very strongly encouraged patient to call [facility] lung transplant back and go ahead and schedule the appointment, noting that it will not be for several weeks. In the interim it is hopeful he may regain some strength and conditioning and be able to better tolerate transport out to that appointment. It is worth noting that patient lives alone and has very minimal support. He has a sister and [id number] who are in the area that might be able to help from time to time but his sister has some medical issues for which she sees a maintainability engineer at [facility] as well. Patient is able to drive his own vehicle but for relatively short/local distances and is unlikely to be able to tolerate driving himself out to [facility], which is approximately 3 hours away from his home. Given his limited social support, it is also worrisome how he would fare posttransplant when he would have to have frequent and ongoing visits with the lung transplant team for at least the first 3 to 6 months following transplant. Patient has a very "anthony" perspective of what lung transplant would be - he thinks of it as an end-all/be-all solution to his lung problems. He felt it would solve everything and when I advised him that his Prolastin infusions would need to continue he was very surprised to hear this. When asked to identify 2-3 top priorities and goals for himself, patient again reiterated the desire to follow-up with his outside provider about his endobronchial valves and to get home so he get stronger and go to rehab. I asked him if he knew if his local hospitals had a pulmonary rehab program and he replied he was not sure and that this was why he had gone to [facility]. I encouraged him to explore the option for a local pulmonary rehab in case he is not a candidate for [facility] rehab again. I also encouraged him to give more serious thought to returning to rehab directly from the hospital admission even though he feels he needs to "go home and get stronger first." I advised him that the likelihood he would go home and recover strength to be well enough to than go to rehab was less likely and that it was more likely that a discharge directly to rehab from the hospital would give him his best chance to optimize his strength and conditioning and continue working towards a goal of pursuing a lung transplant which he identifies as an important priority. Jax has some limited insight into his illness/disease progression/implications of pursuing available options. He is perseverating on another valve. As importantly, he has a very strong sense of trust and report with his outside hospital provider who placed these valves and wants very much to return to that provider for more dialogue before making any other decisions. It may be best to facilitate this communication as it appears to be what provides patient with the most reassurance. (3) Chronic hypoxemic respiratory failure: (4) Sudet-0-kpfwoltmrnp deficiency: Jax is due for dose of Prolastin on Wednesday. I have passed this along to Dr. Collado who will arrange for him to have a dose while he is here in the hospital. (5) End stage COPD: (6) Pulmonary cachexia due to chronic obstructive pulmonary disease: (7) Body mass index (BMI) less than 16.5: (8) Prostate cancer: This was treated in 2018 with a prostatectomy. She be noted that most transplant centers require a 5-year minimum cancer free. Before being eligible to be considered for lung transplant. Plan Prolastin infusion to be administered this Wednesday during his inpatient admission. Pulmonary medicine is assisting, much appreciated. Limited insight into the overall complexity of his situation and the urgency to arrange his initial transplant appointment, which will help determine whether or not he would be a candidate for further evaluation and eventual listing for lung transplant candidacy. Given his limited social supports, his limited resources, his isolation, etc., I am concerned that he may not be a candidate for lung transplant due to the psychosocial issues. Ultimately, I feel [facility] lung transplant team feels he may be a candidate, then their social workers will need to look into additional resources and lines of support to provide this patient with assistance to not only be able to come out to the hospital for his appointments but also for ongoing assistance likely with medications, co-pays and home-based nursing support. Patient did not want to pursue any conversations or exploration of advanced illness planning. He is very fixated on getting another endobronchial valve" see where it goes from there." I have updated the primary team, nursing and pulmonary medicine. Patient does not currently have any acute, inpatient palliative medicine needs. Therefore, at this time I will sign off and follow him more peripherally. I am available for any urgent we engagement as needed, please do not hesitate to page me at that time. Thank you for this interesting consult. Paula Montanez DNP Clinical Director, Palliative Medicine History of Present Illness Reason for Consultation: "end stage copd." Requesting Physician: Daniel Miner MD Attending Physician: West Goldsmith MD History of Present Illness 61yo male admitted from [facility] on 02/04/22 with terminal COPD, hi frequency readmissions for acute on chronic resp failure; chart review indicates pt underwent several attempts of bronchoscopic lung volume reduction which has unfortunately failed due to recurrent infections or worsening symptoms. Pt complains of persistent/chronic breathlessness with very minimal exertion/eating/talking - he cannot speak more than a 3-4 word sentence. He has had numerous ER visits/admissions [facility] and [facility] since December, which he reports are typically managed with nebulizers, Solu-Medrol and antibiotics. He has persistent anxiety. He denies chest pain. He lives alone. He has lost 10+ lbs since Dec 2021. The Chest CTA 02/04 demonstrated severe orellana lobar emphysema and he has +A1AT deficiency for which he receives Prolastin infusions. PMH: very severe COPD, alpha-1 antitrypsin deficiency, PAF; chronic hypoxemic/hypercapnic respiratory failure/chronic 2-3 oxygen; s/p bronchial lung valve replacement in 05/04/2020 and 12/26/[address] Bennett in [place]; prostate cancer s/p prostatectomy. He states he was contacted by [facility] Lung transplant to be scheduled for a consult appointment but he has not scheduled this as of yet. He was seen by pulm med this admission. They note his end stage COPD, refractory to treatment. He no longer has any relief with inhalers so he has been started o n a nebulzier regimen, and in addition, Dr Sanchez noted the following reccs: "Due to chronic hypercapnic respiratory failure consequent to COPD, the patient now requires a noninvasive home ventilator. Bilevel therapy with and without a rate would be ineffective as patient requires a volume targeted mode. Ventilation is required to decrease work of breathing and improve pulmonary status. Interruption of ventilator support would lead to decline of health status. NIMV settings should be AVAPS-AE; Breath rate: auto; Inspiratory time: auto; Sigh: off; Tidal Volume: [350-450], PS min: [4-10 PS max: 12-20]; EPAP min: [6- 10]; EPAP max: [10-16]; AVAPS rate: [14 during sleep and as needed]" Patient is seen bedside and senior living through the evaluation, his son joined us. Patient provides a very convoluted and tangent field history. He repeatedly comes back to wanting to have another endobronchial valve done and his concerns about being mismanaged at the prior outside hospitals especially with regards to his infection from his endobronchial valve complication. He also feels that his COPD exacerbations did not begin until he had his prostatectomy for his prostate cancer in 2018. Allergies Allergy/AdvReac Type Severity Reaction Status Date / Time albuterol Allergy Unknown Verified 02/04/22 16:45 fluticasone furoate Allergy Unknown Verified 02/04/22 16:45 [From Trelegy Ellipta] meloxicam Allergy Unknown Verified 02/04/22 16:45 umeclidinium Allergy Unknown Verified 02/04/22 16:45 [From Trelegy Ellipta] vilanterol Allergy Unknown Verified 02/04/22 16:45 [From TreleWaveDeck Archie] Home Medications Medication Instructions Recorded Confirmed Type acetaminophen 325 mg tablet 650 mg PO Q4 PRN Pain 02/04/22 02/04/22 History alpha-1 proteinase inhib.(hum) 20 mg IV WK 02/04/22 02/04/22 History 1,000 mg (+/-)/20 mL IV solution (Prolastin-C) benzonatate 100 mg capsule 100 mg PO TID PRN Cough 02/04/22 02/04/22 History clonazepam 0.25 mg disintegrating 0.25 mg PO BID PRN Anxiety 02/04/22 02/04/22 History tablet docusate sodium 100 mg capsule 100 mg PO BID 02/04/22 02/04/22 History fluticasone fur. 100 mcg-umeclid 1 ea inhalation .HOLD 02/04/22 02/04/22 History 62.5 mcg-vilant 25 mcg inhalat.powder (Trelegy Ellipta) guaifenesin 100 mg/5 mL oral liquid 100 mg PO QID PRN Cough 02/04/22 02/04/22 History levalbuterol tartrate 45 2 puff inhalation Q4 PRN Wheezing 02/04/22 02/04/22 History mcg/actuation aerosol inhaler ondansetron 4 mg disintegrating 4 mg PO Q4 PRN nausea or vomiting 02/04/22 02/04/22 History tablet polyethylene glycol 3350 17 gram 17 g PO QDL PRN Constipation 02/04/22 02/04/22 History oral powder packet (Miralax) prednisone 10 mg tablet 10 mg PO UD 02/04/22 02/04/22 History sennosides 8.6 mg tablet (Senokot) 8.6 mg PO QDL PRN Constipation 02/04/22 02/04/22 History Patient History Medical History (Updated 02/16/22 @ 09:48 by Paula Montanez DNP) Advanced care planning/counseling discussion Suimr-0-zmqxwewtkhi deficiency Chronic hypoxemic respiratory failure COPD (chronic obstructive pulmonary disease) End stage COPD History of tobacco use Palliative care encounter Paroxysmal atrial fibrillation Prostate cancer (10/06/16) "Rising PSA, pretreatment PSA 4.510 Status post ultrasound-guided biopsies October 06, 2016 Adenocarcinoma the prostate Marguerite 3+3, 3+4, and 4+3 Status post robotic assisted laparoscopic radical prostatectomy February 23, 2017 Marguerite 3+4, perineural invasion, seminal vesicle invasion, positive margins Stage pT3b pN0 Post prostatectomy rising PSA to 0.165 July 06, 2017" Pulmonary cachexia due to chronic obstructive pulmonary disease Surgical History (Updated 02/04/22 @ 16:52 by Roselyn Jaramillo PA-C) H/O prostatectomy 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 Dr Bennett. [facility] Family History (Updated 02/04/22 @ 16:52 by Roselyn Jaramillo PA-C) Other Colorectal cancer Heart disease Social History (Updated 02/04/22 @ 16:52 by Roselyn Jaramillo PA-C) Smoking Status: Former smoker Smoking End Date: 2017; Second Hand Exposure: No; Tobacco Cessation Education Requested by Patient: No Hx Alcohol Use: Yes Alcohol type: beer Hx Substance Use: No Preferred Language: Liberian Communication Ability: Effective Ring Striker Required: No Beliefs That Will Affect Care: Spiritual Current Living Situation: Alone Other Information That Helps Us Care for You: No Feels Safe at Home: Yes Safety Concerns: Feels Safe At This Time Assistive Devices: Oxygen - Continuous Review of Systems Review of Systems: All systems reviewed & are unremarkable except as noted in Subjective Physical Exam Physical Exam: Frail, cachectic male, sitting upright in bed. Patient is awake alert and oriented x3. There is bitemporal wasting noted. Pupils are equal, round and reactive to light. Extraocular movements are intact. Neck is supple and without stridor. Dentition is fair. Lung sounds overall are very diminished without any coarse rhonchi. There is a faint end expiratory wheeze noted. There is increased respiratory effort with conversation, there is use of accessory muscles, + conversational dyspnea, speaking in 3-4 word sentences. Patient's oxygen is currently been reduced to 1 L/min nasal cannula. He continues to saturate over 95% on this oxygen flow rate and then prior conversation with pulmonary medicine earlier today was advised that he could likely remain on room air while at rest but needs to use his oxygen with any exertion. Patient was able to ambulate from his bed to the bathroom with minimal assistance/supervised guidance. His skin is pale but warm to touch. There is some clubbing noted Results & Data ([facility]) Vital Signs (Past 12 Hours) Vital Signs Temp Pulse Pulse Resp BP Pulse Ox O2 Del Method 02/16/22 08:12 36.5 C 100 H 19 108/70 96 Nasal Cannula 02/16/22 08:05 Nasal Cannula 02/16/22 07:00 77 02/16/22 06:04 69 02/15/22 22:48 36.6 C 81 18 106/74 98 Nasal Cannula O2 Flow Rate 02/16/22 08:12 1.5 02/16/22 08:05 2 02/16/22 07:00 02/16/22 06:04 02/15/22 22:48 1.5 Laboratory Results reviewed Diagnostic Findings Chest CTA 02/04/22: No pulmonary emboli are identified although this exam is mildly compromised by respiratory motion. There is no thoracic aorta dissection. Size of the heart is normal. There is no pericardial effusion. No pneumothorax or pleural effusion is noted. Severe emphysema is noted. This is greater within the lower lobes. There is mild bronchial wall thickening. A few foci of tree-in- bud nodules are present. These are most pronounced within the left upper lobe. There is no consolidation. Note is made of bronchial endovalves within the posterior and medial basal segments of the right lower lobe. There is no cavitation. Bony thorax is unremarkable. Visualized portions of the upper abdomen are unremarkable. A few small pulmonary nodules measure up to 5 mm. A lingular nodule is unchanged since abdominal CT of November 13, 2018. This is benign. PG Care Time/CCT Total # of Minutes Spent Total Time Spent: 85 Total Time Spent with Patient: Total time spent is greater than 50% in coordination of care (as documented) at patient's floor/unit and/or counseling patient: I spent 85 minutes overall addressing this complex/intricate case: 10 in medical data review/discussion with referring provider(s) and/or preparation for the visit 10 in direct interaction with the patient ] 45 Goals of Care discussions as detailed above in note (must be >16min) 10 in subsequent review and synthesis of assessment and plan 10 in communicating with other providers regarding the patient's case: [] Prolonged Care Time Prolonged Care Time: [place] [address] Inpt Consult Level 5 Patient Type New History Comprehensive Exam Detailed Medical Decision Making High Complexity Diagnoses Palliative care encounter Z51.5 Advanced care planning/counseling discussion Z71.89 Chronic hypoxemic respiratory failure J96.11 Sacdb-0-lfikniaamcy deficiency E88.01 End stage COPD J44.9 Pulmonary cachexia due to chronic obstructive pulmonary disease J44.9; R64 Body mass index (BMI) less than 16.5 Z68.1 Prostate cancer C61 Additional Codes Prolonged Care Time - Prolonged Care Time: Yes ([id number])
--- NOTE | 2022-02-16 15:22 | Hospitalist Progress Note ---
Date of Service February 16, 2022 Assessment & Plan (1) COPD with acute exacerbation: Plan: (1) COPD with acute exacerbation: Plan: per Dr. Rehman's notes with addendum: In ER afebrile, 96% on chronic 2 L oxygen via nasal cannula. ABG: pH: 7.4, PCO2: 50, PO2: 93, HCO3: 35 CXR: No acute cardiopulmonary findings. Emphysema. CTA Chest: 1. No pulmonary emboli identified. Exam mildly compromised by respiratory motion. 2. Severe emphysema. 3. A few scattered cluster tree-in-bud nodules which favor an infectious or inflammatory process. No consolidation. In ER given cefepime, vancomycin, Solu-Medrol 60 mg IV, nebulizer treatment Records request made Continue Solu-Medro Xopenex/Atrovent nebs Continue supplemental oxygen Pulmonology consult. Discussed with Dr. Collado. - continue azithromycin x5 days total - continue to prednisone 40mg x3 days, then 20mg x3 days started 02/07/2022 - will discharge to pulm rehab with hypertonic saline nebs, azithromycin 250mg MWF lifelong when ready for discharge - referrals sent by as patient would like to not go to [facility] 02/13 Patient finished azithromycin course Currently on prednisone taper at 10 mg daily Reports increased dyspnea today Repeat chest x-ray: No signs of pneumonia or pleural effusion Remains at 1.5 L nasal cannula Newspaper Correspondent requested to reevaluate the patient 02/14 Newspaper Correspondent reevaluated patient, recommendations noted Patient started on: Perforomist, budesonide Prednisone increased to 40 mg p.o. daily, taper by 5 mg every 3 days Azithromycin daily Gabapentin nightly Monitor closely 02/15 Remains on 2 L of nasal cannula Has dyspnea on minimal exertion Continue new regimen Monitor closely Patient requested to discuss case with his Newspaper Correspondent tomorrow 1/2 Remains on 2 L of oxygen via nasal cannula Still having dyspnea minimal exertion Requested Dr. Collado to reevaluate patient Patient requesting to coordinate care with his development intern in [facility], Dr. Billings Requesting callback Patient also requesting to transition care to [facility], called transfer center, they are not excepting transfers at this point (2) Paroxysmal atrial fibrillation: Plan: History episode of atrial fibrillation while hospitalized receiving albuterol nebulizer treatments in 2018. Patient denies any history recurrent atrial fibrillation. Not on anticoagulation or rate control medications Current sinus rhythm (3) Body mass index (BMI) less than 16.5: Plan: BMI: 15 Patient reports 10 pound weight loss over the past month, generalized weakness.generalized weakness likely secondary to his recurrent hospitalizations and COPD exacerbations, deconditioning Dietitian consult Boost daily PT/OT eval (4) Prostate cancer: Plan: S/P prostatectomy Plan DVT ppx: Lovenox SQ Code Status: Full code Dispo: anticipate to transition to [facility] once medically stable, cleared by pulmonary service Plan DVT ppx: Lovenox SQ Code Status: Full code Dispo: pending Admission and Anticipated Discharge Date Admission Date: February 04, 2022 Subjective Follow-up for acute on chronic COPD exacerbation, etc. Seen resting in bed, comfortable, not in distress States his breathing is the same as yesterday Still has dyspnea on minimal exertion No fevers or chills, cough, sputum production No chest pain No other symptoms Review of Systems Review of Systems: all noted and negative except for above Physical Exam Physical Exam: General- oriented x 3, not in distress, speaks in sentences with no effort or accessory muscle use Eyes- anicteric Neck- no JVD Lungs-diminished but clear breath sounds bilaterally, no crackles or wheezing Heart- normal rate, regular rhythm; no murmurs Abdomen- normal bowel sounds, nondistended, soft, nontender Extremities- no pretibial edema, no calf tenderness Neuro- alert, oriented x 3; no gross focal neurologic deficits Skin- warm & dry Results & Data Results & Data ([facility]) Vital Signs (Past 12 Hours) Vital Signs Temp Pulse Pulse Resp BP Pulse Ox O2 Del Method 02/16/22 15:07 36.7 C 18 165/91 H 97 Nasal Cannula 02/16/22 12:39 36.5 C 73 19 134/76 97 Nasal Cannula 02/16/22 08:12 36.5 C 100 H 19 108/70 96 Nasal Cannula 02/16/22 08:05 Nasal Cannula 02/16/22 07:00 77 02/16/22 06:04 69 O2 Flow Rate 02/16/22 15:07 2.5 02/16/22 12:39 1.5 02/16/22 08:12 1.5 02/16/22 08:05 2 02/16/22 07:00 02/16/22 06:04 all noted and reviewed including below
[2022-02-16] MEDS: clonazePAM 0.5 MG TAB PO SCH (17:39)
[2022-02-16] MEDS: ENOXAPARIN INJ 30 MG/0.3 ML SYR SQ SCH (20:06)
[2022-02-16] MEDS: clonazePAM 0.25 MG TAB PO PRN (22:10)
[2022-02-17] MEDS: DOCUSATE SODIUM 100 MG CAP PO SCH ×2 (08:51→20:16)
[2022-02-17] MEDS: FLUTICASONE PROPIONATE NA SPR 16 GM BTL NAE SCH (08:51)
[2022-02-17] MEDS: predniSONE 20 MG TAB PO SCH (08:52)
[2022-02-17] MEDS: UMECLIDINIUM BROMIDE 62.5MCG/BLISTER 7 PUFFS/INHALER INH SCH (08:52)
[2022-02-17] MEDS: guaiFENesin 600 MG TABCR PO SCH ×2 (08:52→20:15)
[2022-02-17] MEDS: FLUTICASONE/VILANTEROL 200/25MCG 14 PUFFS/INHALER INH SCH (08:52)
--- NOTE | 2022-02-17 12:25 | Pulmonology Progress Note ---
Date of Service February 17, 2022 Assessment & Plan (1) COPD with acute exacerbation: (2) Nwpig-8-spffmqsgouz deficiency: (3) History of tobacco use: (4) Acute dyspnea: (5) Mucus plugging of bronchi: (6) Acute respiratory failure with hypoxia: Plan CT chest 02/04/2022 personally reviewed: Centrilobular emphysema appreciated bilaterally in the upper lobes, panlobular emphysema appreciated bilateral lower lobes Tree-in-bud opacities appreciated bilaterally on the periphery, left lower lobe 5 mm pulmonary nodule Endobronchial valve appreciated likely an RB 6 as well as possibly medial basal No significant mediastinal lymphadenopathy ABG 02/04/2022: 7.45/50/93 --Acute on chronic hypoxic respiratory failure Likely secondary to COPD exacerbation Patient did have 3 endobronchial valve placement in April 2020 as well as removal of 1 valve [address] Bennett, patient has total of 2 valves right now in the right lower lobe COVID-19 PCR, influenza A/B, RSV negative Respiratory bio fire negative Try to keep O2 saturation between 88-92% -- COPD with emphysema, chronic hypoxic respiratory failure Severe On low-dose trilogy at home Patient will benefit from azithromycin 250 mg Xfacve-Cjicjuitf-Ohewas, QTC 421 on 02/05/2022 Will benefit from pulmonary rehab as an outpatient -- History of alpha-1 antitrypsin deficiency On Prolastin C weekly --Left lower lobe pulmonary nodule 5 mm Unchanged 2017 Does not need to be followed up -- Ex-smoker Quit in 2018 Plan: Try to keep oxygen saturation between 88-92% Continue with azithromycin to 250 mg Qlmscp-Nycjtksar-Dezevg Continue with prednisone 40 mg for 1 more day and then go down to 20 mg for 3 days and then 10 mg for 3 days. I do think anxiety is also playing a role in patient's symptom on top of his underlying COPD No further recommendation for pulmonary perspective. We will sign off Please call directly with any questions Case was discussed with Dr. Goldsmith Please note the above document was generated using voice recognition software. It may contain grammatical, syntax or spelling errors.Any formal questions or concerns about the content, text or information contained within the body of this dictation should be directly addressed to the provider for clarification. Admission and Anticipated Discharge Date Admission Date: February 04, 2022 Subjective Patient seen and examined at bedside. No acute distress, no adverse events overnight. Saturation was 99% on 1 and half liters oxygen Not in any respiratory distress. Denies any headache, shortness of breath is improved. Fair appetite. No nausea or vomiting Review of Systems Review of Systems: All systems reviewed & are unremarkable except as noted in Subjective Physical Exam 2 Physical Exam: Constitutional: No acute distress, frail-appearing HEENT: EOMI, PERRLA Respiratory system: Decreased air entry bilaterally, no wheeze, no rhonchi, no crackles CVS: S1-S2 positive, no murmurs or gallops Abdomen: Soft, nontender, nondistended, positive bowel sounds x4 Extremities: +2 pulses bilaterally radialis/ dorsalis pedis, no cyanosis, no edema Neuro: Awake alert oriented x3 Psych: Normal mood and affect G/U: No Lubin Skin: no rashes, warm and dry Lymphatic: no cervical or axillary lymphadenopathy Results & Data Results & Data ([facility]) Vital Signs (Past 12 Hours) Vital Signs Temp Pulse Pulse Resp BP BP Pulse Ox 02/17/22 10:54 36.5 C 76 18 135/77 100 02/17/22 08:00 02/17/22 07:13 36.5 C 76 18 139/80 99 02/17/22 08:09 60 02/17/22 03:34 36.6 C 71 18 119/76 100 02/17/22 02:00 02/17/22 01:16 67 O2 Del Method O2 Flow Rate 02/17/22 10:54 Nasal Cannula 1.5 02/17/22 08:00 Nasal Cannula 2 02/17/22 07:13 Nasal Cannula 2 02/17/22 08:09 02/17/22 03:34 Nasal Cannula 2 02/17/22 02:00 Nasal Cannula 2 02/17/22 01:16 Laboratory Results 02/09/22 05:53 02/09/22 05:53 PG Care Time/CCT Total # of Minutes Spent Total Time Spent with Patient: Total time spent is greater than 50% in coordination of care (as documented) at patient's floor/unit and/or counseling patient: Coding Level of Care Code 87931 Subseq Hosp Care Lvl 2 Diagnoses COPD with acute exacerbation J44.1 Ecbrg-7-nhpujlmdwzf deficiency E88.01 History of tobacco use Z87.891 Acute dyspnea R06.00 Mucus plugging of bronchi T17.500A Acute respiratory failure with hypoxia J96.01
--- NOTE | 2022-02-17 12:40 | Hospitalist Progress Note ---
Date of Service February 17, 2022 Assessment & Plan (1) COPD with acute exacerbation: Plan: (1) COPD with acute exacerbation Alpha 1 antitrypsin deficiency history of Alpha 1 antitrypsin deficiency with endobronchial valve placement and subsequent removal December 2021 follows with [facility] has been on 2 L nasal cannula since December 2021 on admission: In ER afebrile, 96% on chronic 2 L oxygen via nasal cannula. ABG: pH: 7.4, P CO2: 50, PO2: 93, HCO3: 35 CTA Chest: 1. No pulmonary emboli identified. Exam mildly compromised by respiratory motion. 2. Severe emphysema. 3. A few scattered cluster tree-in-bud nodules which favor an infectious or inflammatory process. No consolidation. Pulmonology consulted - Dr. Collado prescribed with azithromycin x5 days total, tapering prednisone 40mg x3 days, t hen 20mg x3 days started 02/07/2022 after Prednisone taper, patient felt dyspneic with minimal exertion again reports he is not ready to go to acute rehab remained on 2 L NC repeat CXR: no pneumonia Pulm service re-evaluated patient increased Prednisone 40mg daily placed on Bipap at night Klonipin 0.5mg po daily added per recommendation of patient's outside [facility] Specialist Dr. Bennett patient seems to feel somewhat improved today continue Prednisone taper 20mg x 3 days, then 10mg x 3 days, then stop hypertonic saline nebs, azithromycin 250mg MWF lifelong when ready for discharge can increase Klonipin to BID for dyspnea Palliative care service also consulted Patient plans to pursue Pulm [facility] at Acute Rehab setting, and is in communication with [facility] (2) Paroxysmal atrial fibrillation: Plan: History episode of atrial fibrillation while hospitalized receiving albuterol nebulizer treatments in 2018. Patient denies any history recurrent atrial fibrillation. Not on anticoagulation or rate control medications Current sinus rhythm (3) Body mass index (BMI) less than 16.5: Plan: BMI: 15 Patient reports 10 pound weight loss over the past month, generalized weakness.generalized weakness likely secondary to his recurrent hospitalizations and COPD exacerbations, deconditioning Dietitian consult Boost daily PT/OT eval (4) Prostate cancer: Plan: S/P prostatectomy Plan DVT ppx: Lovenox SQ Code Status: Full code Dispo: anticipate to transition to [facility] once medically stable, patient feels ready, likely in 1-2 days Plan DVT ppx: Lovenox SQ Code Status: Full code Dispo: pending Admission and Anticipated Discharge Date Admission Date: February 04, 2022 Subjective ff up for COPD exacerbation, alpha 1 antitrypsin deficiency, etc seen resting in bed, sitting up on 2 L NC comfortable, not in distress, in good spirits states he feels ok overall Klonipin helped last night, feels more relaxed, less dyspnea no cough, fever/chills, sputum production still has some dyspnea on exertion, but seems to be improving no other symptoms Review of Systems Review of Systems: all noted and negative except for above Physical Exam Physical Exam: General- oriented x 3, not in distress, speaks in sentences with no effort or accessory muscle use Eyes- anicteric Neck- no JVD Lungs- diminished but clear breath sounds bilaterally, no rales/wheezes Heart- normal rate, regular rhythm; no murmurs Abdomen- normal bowel sounds, nondistended, soft, nontender Extremities- no pretibial edema, no calf tenderness Neuro- alert, oriented x 3; no gross focal neurologic deficits Skin- warm & dry Results & Data Results & Data ([facility]) Vital Signs (Past 12 Hours) Vital Signs Temp Pulse Pulse Resp BP BP Pulse Ox 02/17/22 10:54 36.5 C 76 18 135/77 100 02/17/22 08:00 02/17/22 07:13 36.5 C 76 18 139/80 99 02/17/22 08:09 60 02/17/22 03:34 36.6 C 71 18 119/76 100 02/17/22 02:00 02/17/22 01:16 67 O2 Del Method O2 Flow Rate 02/17/22 10:54 Nasal Cannula 1.5 02/17/22 08:00 Nasal Cannula 2 02/17/22 07:13 Nasal Cannula 2 02/17/22 08:09 02/17/22 03:34 Nasal Cannula 2 02/17/22 02:00 Nasal Cannula 2 02/17/22 01:16 all noted and reviewed including below
[2022-02-17] MEDS: clonazePAM 0.5 MG TAB PO SCH (18:03)
[2022-02-17] MEDS: ENOXAPARIN INJ 30 MG/0.3 ML SYR SQ SCH (20:15)
[2022-02-17] MEDS: clonazePAM 0.25 MG TAB PO PRN (21:44)
[2022-02-18] MEDS: DOCUSATE SODIUM 100 MG CAP PO SCH ×2 (08:13→19:54)
[2022-02-18] MEDS: UMECLIDINIUM BROMIDE 62.5MCG/BLISTER 7 PUFFS/INHALER INH SCH (08:13)
[2022-02-18] MEDS: AZITHROMYCIN 250 MG TAB PO SCH ×2 (08:13→08:16)
[2022-02-18] MEDS: FLUTICASONE PROPIONATE NA SPR 16 GM BTL NAE SCH (08:13)
[2022-02-18] MEDS: guaiFENesin 600 MG TABCR PO SCH ×2 (08:13→19:55)
[2022-02-18] MEDS: FLUTICASONE/VILANTEROL 200/25MCG 14 PUFFS/INHALER INH SCH (08:13)
[2022-02-18] MEDS: predniSONE 20 MG TAB PO SCH (08:13)
[2022-02-18] MEDS ORDERED: PROTEINASE INHIBITOR IV SCH (12:00)
[2022-02-18] MEDS ORDERED: ALPHA IV SCH (12:00)
--- NOTE | 2022-02-18 13:33 | Hospitalist Progress Note ---
Date of Service February 18, 2022 Assessment & Plan (1) COPD with acute exacerbation: Plan: (1) COPD with acute exacerbation Alpha 1 antitrypsin deficiency Chronic hypoxic respiratory faiure history of Alpha 1 antitrypsin deficiency with endobronchial valve placement and subsequent removal December 2021 [facility] has been on 2 L nasal cannula since December 2021 on admission: In ER afebrile, 96% on chronic 2 L oxygen via nasal cannula. ABG: pH: 7.4, PCO2: 50, PO2: 93, HCO3: 35 CTA Chest: 1. No pulmonary emboli identified. Exam mildly compromised by respiratory motion. 2. Severe emphysema. 3. A few scattered cluster tree-in-bud nodules which favor an infectious or inflammatory process. No consolidation. Pulmonology consulted - Dr. Collado prescribed with azithromycin x5 days total, prednisone taper. Started Klonopin 0.5mg daily and 0.25mg BID PRN for anxiety which is likely contributing to his symptoms Palliative care service also consulted Patient plans to pursue Pulm [facility] at Acute Rehab setting, and is in communication with [facility] (2) Paroxysmal atrial fibrillation: Plan: History episode of atrial fibrillation while hospitalized receiving albuterol nebulizer treatments in 2018. Patient denies any history recurrent atrial fibrillation. Not on anticoagulation or rate control medications Current sinus rhythm (3) Body mass index (BMI) less than 16.5: Moderate Malnutrition Plan: BMI: 15 Patient reports 10 pound weight loss over the past month, generalized weakness.generalized weakness likely secondary to his recurrent hospitalizations and COPD exacerbations, deconditioning Boost daily (4) Prostate cancer: Plan: S/P prostatectomy Plan DVT ppx: Lovenox SQ Code Status: Full code Dispo: Pending placement to [facility] Plan DVT ppx: Lovenox SQ Code Status: Full code Dispo: pending Admission and Anticipated Discharge Date Admission Date: February 04, 2022 Subjective Patient reports feeling anxious. Upset about his Prolastin Physical Exam Physical Exam: Thin, cachetic, appears chronically ill Respiratory: Airflow fair, no stridor, breathing with pursed lips Cardiovascular: regular rate and rhythm, no murmurs/rubs/gallops Gastrointestinal (Abdomen): soft, non tender Musculoskeletal: no edema, no cyanosis or clubbing Psychiatric: Anxious, speech linear, non tangential Results & Data Results & Data ([facility]) Vital Signs (Past 12 Hours) Vital Signs Temp Pulse Pulse Resp BP Pulse Ox O2 Del Method 02/18/22 11:49 36.7 C 75 18 136/92 95 Nasal Cannula 02/18/22 07:30 Nasal Cannula 02/18/22 08:00 71 02/18/22 07:21 36.5 C 87 18 135/84 98 Nasal Cannula 02/18/22 03:21 36.6 C 70 18 131/68 99 Nasal Cannula 02/18/22 03:14 107 H O2 Flow Rate 02/18/22 11:49 1 02/18/22 07:30 2 02/18/22 08:00 02/18/22 07:21 2 02/18/22 03:21 1.5 02/18/22 03:14
[2022-02-18] MEDS: clonazePAM 0.5 MG TAB PO SCH (17:30)
[2022-02-18] MEDS: ENOXAPARIN INJ 30 MG/0.3 ML SYR SQ SCH (19:54)
[2022-02-18] MEDS: clonazePAM 0.25 MG TAB PO PRN (21:42)
[2022-02-19] MEDS: predniSONE 20 MG TAB PO SCH (08:23)
[2022-02-19] MEDS: guaiFENesin 600 MG TABCR PO SCH (08:23)
[2022-02-19] MEDS: FLUTICASONE/VILANTEROL 200/25MCG 14 PUFFS/INHALER INH SCH (08:24)
[2022-02-19] MEDS: UMECLIDINIUM BROMIDE 62.5MCG/BLISTER 7 PUFFS/INHALER INH SCH (08:24)
[2022-02-19] MEDS: DOCUSATE SODIUM 100 MG CAP PO SCH (09:31)
[2022-02-19] MEDS: FLUTICASONE PROPIONATE NA SPR 16 GM BTL NAE SCH (09:31)
[2022-02-19] MEDS: clonazePAM 0.25 MG TAB PO PRN ×2 (10:30→15:45)
[2022-02-21] MEDS ORDERED: predniSONE 10 MG TABLET PO SCH (09:00)
--- NOTE | 2022-02-24 20:52 | Discharge Summary ---
Date of Service February 24, 2022 Admission HPI Per Admitting Provider Patient is 61-year-old male with PMH COPD, alpha-1 antitrypsin deficiency, chronic hypoxemic and hypercapnic respiratory failure, on chronic 2-3 oxygen, history of bronchial lung valve replacement in 05/04/2020 and 12/26/[address] Bennett in [place], prostate cancer s/p surgery presented [facility] with complaint of shortness of breath. Patient states since his procedure in December he has had steady decline with recurrent episodes of shortness of breath. Patient reports multiple ER visits and hospitalizations in [facility] since December. States that he typically is treated with nebulizers, Solu-Medrol and antibiotics. Patient states shortness of breath with any type of exertion, conversation as well as eating. Reports chronic cough productive clear sputum. Denies chest pain, fever/chills. States today at rehab had increased SOB and was referred to ER. Reported that had recent ER visit and was felt that patient would benefit from an patient rehab secondary to his generalized weakness. Patient states has lost 10 pounds since December. Denies fever/chills, diaphoresis, N/V/D/C, MORENO, dizziness, syncope, vision changes, neck pain, palpitations, hemoptysis, sore throat, choking, otalgia, rhinorrhea, abdominal pain, paresthesias, extremity edema, rashes, urinary symptoms. Principal Diagnosis COPD exacerbation Discharge Exam Thin, cachetic ENMT temporal muscle wasting Respiratory No wheezing Musculoskeletal no edema, peripheral muscle wasting Discharge Data Allergies Allergy/AdvReac Type Severity Reaction Status Date / Time albuterol Allergy Unknown Verified 02/04/22 16:45 fluticasone furoate Allergy Unknown Verified 02/04/22 16:45 [From Trelegy Ellipta] meloxicam Allergy Unknown Verified 02/04/22 16:45 umeclidinium Allergy Unknown Verified 02/04/22 16:45 [From Trelegy Ellipta] vilanterol Allergy Unknown Verified 02/04/22 16:45 [From Trelegy Ellipta] Consultations 02/04/22 15:17 ED Decision to Admit Stat 02/04/22 19:16 Consult Pulmonology Routine 02/13/22 18:06 Consult Palliative Care Routine Ordered Studies 02/04/22 12:29 CT angio chest PE protocol Stat Hospital Course (1) COPD with acute exacerbation: history of Alpha 1 antitrypsin deficiency with endobronchial valve placement and subsequent removal December 2021 follows with [facility] Enrrique Anguiano has been on 2 L nasal cannula since December 2021 on admission: In ER afebrile, 96% on chronic 2 L oxygen via nasal cannula. ABG: pH: 7.4, PCO2: 50, PO2: 93, HCO3: 35 CTA Chest: 1. No pulmonary emboli identified. Exam mildly compromised by respiratory motion. 2. Severe emphysema. 3.A few scattered cluster tree-in-bud nodules which favor an infectious or inflammatory process. No consolidation. Pulmonology consulted - Dr. Collado prescribed with azithromycin x5 days total and prednisone taper. Started Klonopin 0.5mg daily and 0.25mg BID PRN for anxiety which is likely contributing to his symptoms Palliative care service also consulted Patient plans to pursue Pulm Rehab at discharge and is in communication with [facility] (2) Paroxysmal atrial fibrillation: History episode of atrial fibrillation while hospitalized receiving albuterol n ebulizer treatments in 2018. Patient denies any history recurrent atrial fibrillation. Not on anticoagulation or rate control medications Current sinus rhythm (3) Body mass index (BMI) less than 16.5: BMI: 15 Patient reports 10 pound weight loss over the past month, generalized weakness.generalized weakness likely secondary to his recurrent hospitalizations and COPD exacerbations, deconditioning Dietitian consult [facility] daily PT/OT eval (4) Prostate cancer: S/P prostatectomy Plan Initial plan to discharge to [facility] due to significant deconditioning. However, patient improved during hospital course as his COPD exacerbation resolved and felt comfortable being discharged home with Home health. Home Health Attestation I certify that this patient is under my care and that I, or a physicians molding line assistant working with me, had a face to-face encounter that meets the home health [id number] encounter requirements with this patient. The encounter with the patient was in whole, or in part, for the following medical condition, which is the primary reason for home health care (list medical condition): COPD exacerbation I certify that, based on my findings, the following services are medically necessary home health services: My clinical findings support the need for the above services because: Medication Compliance and Monitoring Effective of New Medications PT Assessment for Endurance / Balance / Strength Skilled Nsg Assess Pt Illness, Disease and Sx Monitoring S/S to Report to Provider Teach on Disease Management and Interventions Further, I certify that my clinical findings support that this patient is homebound (i.e. absences from home require considerable and taxing effort and are for medical reasons or sikhism services or infrequently or of short duration when for other reasons) because: Poor Endurance; SOB Minimal Exertion Certification for Home Health Services: Based on the above findings, I certify that this patient is confined to the home and needs intermittent correction care, physical therapy and/or speech therapy or continues to need occupational therapy. The patient is under my care, and I have initiated the establishment of the plan of care. This patient will be followed by a physician who will periodically review the plan of care. Total Time Total Time Spent Total Time Spent (In Minutes): 40 Discharge Plan Discharge Items Patient Disposition: Home - Home Health Services Reason For Visit: SOB Discharge Diagnosis: COPD exacerbation Condition on Discharge: Fair Activity: Resume your previous activity Non-emergency contact: Primary Care Provider and Caddy Call non-emergency contact if: you have any medication questions and your symptoms worsen Follow-up/Referrals: Maribeth Dyer DO [Primary Care Provider] - 02/25/22 9:00 am Diet: Regular Addtl Attending Provider Instructions: Please follow up with your PCP and Caddy Prednisone 20mg daily for 02/20/2022 then Prednisone 10mg daily for 3 more days Pending Studies at Discharge: No Stand-Alone Forms: My [facility], Smoking Cessation Medications and DC Order Prescriptions: New azithromycin 250 mg Tablet 250 mg PO MoWeFr@0900 14 Days Qty: 6 0RF clonazepam 0.5 mg Tablet 0.5 mg PO Q24H 15 Days Qty: 15 0RF Continued prednisone 10 mg tablet 10 mg PO UD Rx Instructions: 30 mg orally daily x 2 days stop 02/05/22 15:00 20 mg orally daily x 2 days start 02/06/22 @ 0900 stop 02/08/22 @ 2359 10 mg orally daily x 2 days start 02/09/22 @ 0900 stop 02/12/22 @ 1500 benzonatate 100 mg capsule 100 mg PO TID PRN (Reason: Cough) clonazepam 0.25 mg tablet,disintegrating 0.25 mg PO BID PRN (Reason: Anxiety) levalbuterol tartrate 45 mcg/actuation HFA aerosol inhaler 2 puff INHALATION Q4 PRN (Reason: Wheezing) Trelegy Ellipta 100-62.5-25 mcg blister with device 1 ea INHALATION .HOLD Rx Instructions: listed as allergic Prolastin-C 1,000 mg (+/-)/20 mL solution 20 mg IV WK Rx Instructions: inject 20mg every Wednesday acetaminophen 325 mg Tablet 650 mg PO Q4 PRN (Reason: Pain) guaifenesin 100 mg/5 mL Liquid 100 mg PO QID PRN (Reason: Cough) ondansetron 4 mg Tablet,Disintegrating 4 mg PO Q4 PRN (Reason: nausea or vomiting) docusate sodium 100 mg Capsule 100 mg PO BID sennosides [Senokot] 8.6 mg Tablet 8.6 mg PO QDL PRN (Reason: Constipation) polyethylene glycol 3350 [Miralax] 17 gram Powder In Packet 17 g PO QDL PRN (Reason: Constipation) Discharge Orders: Discharge Order (Routine); Ordered 02/19/22 Ordered By: Rosalio Pickett Admission Data Admit Date/Time: 02/04/22 16:20 Attending Provider: Rosalio Pickett Admit Provider: Sera Mercer Primary Care Provider: Maribeth Dyer Other Providers: Sera Mercer ; Mehul Collado ; [facility] ; [facility] ; Saúl Briones ; Maryellen Dodge ; [place] Other Interventions: Discharge Summary Assessment (RN) Last Done: 02/19/22 15:07
== END 2022-02-19 16:31 | disposition home health service (06) | DRG 190 ==
LOC: ED 12:03 → 2N 16:20 → SUATTDRO 16:20 → 2N 18:40 → 2W 02-08 05:57